=== PATIENT | male | born 1935 | race Caucasian/White ===

== ENCOUNTER 2022-11-21 18:56 | Inpatient (IN) ==
--- OUTSIDE RECORDS SUMMARY | 2022-11-21 19:19 | External Medical Summary | Continuity of Care Document ---
Author Name Unknown Organization [facility] Address [address] [place] [address] Care Team Providers Care High Risk Ob Name Role Phone Jason Kim Primary Care Physician [phone] Encounter [facility] Date(s): 08/23/22 - 08/24/22 [facility] [address] [place] [address]- [place] Discharge Disposition: Home Attending Physician: DO Micah Ceja Admitting Physician: DO Micah Ceja Allergies, Adverse Reactions, Alerts No Known Medication Allergies Assessment and Plan Future Scheduled Tests Radiology* US Echo 2D Complete EO 03/27/22 Functional Status 08/24/22 History of Fall in Last 3 Months [place] 08/23/22 Family Member Travel History No recent t ravel Recent Travel History No recent travel Other exposure to Infectious Disease Non e Medications aspirin 81 mg oral delayed release tablet 1 tab(s) ( 81 mg ), PO, Daily Start Date: 03/19/22 Status: Ordered carbidopa-levodopa 25 mg-100 mg oral tablet 1 tab(s), PO, As Directed, Instructions: 2 tabs QAM, 2 tabs QPM and 3 tabs in afternoon Start Date: 03/19/22 Status: Ordered carvedilol 3.125 mg oral tablet 1 tab(s) ( 3.125 mg ), PO, HS Start Date: 03/19/22 Status: Ordered citalopram 20 mg oral tablet 1 tab(s) ( 20 mg ), PO, Daily Start Date: 03/19/22 Status: Ordered furosemide ( 5 mg ), PO, BID, 0 Refill(s) Start Date: 08/23/22 Status: Ordered hctz-triamterene 25-37.5mg 1 tab(s), PO, Daily Start Date: 03/19/22 Status: Ordered levothyroxine 75 mcg (0.075 mg) oral tablet 1 tab(s), PO, Daily Start Date: 03/19/22 Status: Ordered potassium chloride ( 10 mEq ), PO, BID, 0 Refill(s) Start Date: 08/23/22 Status: Ordered pramipexole 0.25 mg oral tablet 1 tab(s) ( 0.25 mg ), PO, BID Start Date: 03/19/22 Status: Ordered Mental Status 08/24/22 Level of Consciousness Alert Problem List Condition Confirmation Course Effective Dates Status Health St atus Informant HTN (hypertension) Confirmed Active Hypothyroid Confirmed Active Parkinson disease Confirmed Active Prostate cancer, primary, 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 Confirmed Active Results Laboratory List Name Date Automated Differential 08/24/22 Basic Metabolic Panel2 (BMP2) 08/24/22 CBC w/ Auto Diff 08/24/22 Most recent to oldest [Reference Range]: 1 Creatinine Level [0.55-1.30 mg/dL] 1.19 mg/dL (08/24/22 7:25 AM) AGAP [9-18] 10 (08/24/22 7:25 AM) Basophil Auto [0.00-0.20 K/mcL] 0.01 K/m cL (08/24/22 7:25 AM) BUN [7-18 mg/dL] 39 mg/dL *HI* (08/24/22 7:25 AM) Chloride Level [98-107 mmol/L] 102 mmol/ L (08/24/22 7:25 AM) CO2 [21-32 mmol/L] 28 mmol/L (08/24/22 7:25 AM) Eos Auto [0.00-0.45 K/mcL] 0.06 K/mcL (08/24/22 7:25 AM) Glucose Level [74-106 mg/dL] 101 mg/dL (08/24/22 7:25 AM) Hct [41.0-50.0 %] 35.7 % *LOW* (08/24/22 7:25 AM) Hgb [13.5-18.0 g/dL] 12.1 g/dL *LOW* (08/24/22 7:25 AM) Lymph Auto [1.00-4.80 K/mcL] 0.45 K/mcL *LOW* (08/24/22 7:25 AM) MCH [26.0-34.0 pg] 31.8 pg (08/24/22 7:25 AM) MCHC [31.0-37.0 g/dL] 33.9 g/dL (08/24/22 7:25 AM) MCV [80.0-100.0 fL] 93.7 fL (08/24/22 7:25 AM) [place] Auto [0.00-0.80 K/mcL] 0.56 K/mcL (08/24/22 7:25 AM) MPV [8.0-12.0 fL] 9.4 fL (08/24/22 7:25 AM) Neutro Auto [1.80-7.70 K/mcL] 3.84 K/mcL (08/24/22:25 AM) Platelet [150-400] 182 (08/24/22:25 AM) Potassium Level [3.5-5.1 mmol/L] 4.2 mmo l/L (08/24/22:25 AM) RBC [4.00-5.30 M/uL] 3.81 M/uL *LOW* (08/24/22 7:25 AM) RDW [10.0-15.0 %] 13.9 % (08/24/22 7:25 AM) Sodium Level [136-145 mmol/L] 136 mmol/L (08/24/22 7:25 AM) WBC [4.00-10.00 K/mcL] 5.10 K/mcL (08/24/22:25 AM) Calcium Level [8.5-10.1 mg/dL] 9.5 mg/dL (08/24/22 7:25 AM) Auto Eos % [0.0-6.0 %] 1.2 % (08/24/22 7:25 AM) Auto Lymph % [20.0-45.0 %] 8.8 % *LOW* (08/24/22:25 AM) Auto Neut % [36.0-70.0 %] 75.3 % *HI* (08/24/22 7:25 AM) Auto Baso % [0.0-2.0 %] 0.2 % (08/24/22 7:25 AM) Auto [place] % [1.0-10.0 %] 11.0 % *HI* (08/24/22 7:25 AM) BUN/Creat Ratio [7-18] 33 *HI* (08/24/22 7:25 AM) eGFR AA [>=60] 74 (08/24/22 7:25 AM) eGFR Non AA [>=60] 61 (08/24/22 7:25 AM) Radiology Reports * Exam Date Time Procedure Performing Provider Status 08/24/22 8:[address] Head or Brain w/o Contrast Rodney Isbell; Auth (Verified) Notes: (CT Head or Brain w/o Contrast) Reason For Exam: Possible brain bleed. (CT Head or Brain w/o Contrast) Radiation Dose Estimate: CTDI DLP(mGy-cm) Body Part Effective Dose(mSv) -- 1014.0000 -- 0.0000 Total Effective Dose: 0.229792 mSv CT Head or Brain w/o Contrast [facility] DATE OF EXAM: 08/24/2022 8:04 AM HISTORY: Possible brain bleed.. PROVIDER: Micah Ceja COMPARISON: Unenhanced CT brain performed yesterday.. TECHNIQUE: Axial CT brain no contrast. Reformatted included. FINDINGS: Stable 3 mm hyperdense focus right caudate nucleus. No new acute intracranial pathology. Stable age-related parenchymal atrophy with diffuse periventricular white matter hypodensities. IMPRESSION: Stable suspect right caudate nucleus hemorrhage 3 mm. Unchanged chronic small vessel ischemic angiopathy with age-related parenchymal atrophy. No new acute intracranial pathology. THIS IS AN ELECTRONICALLY SIGNED REPORT IN [id number] BY Terrell Moore M.D. on 08/24/2022 8:25 AM sgprovider Final Signed (Electronic Signature): MD TERRELL MOORE 08/24/22 8:25 am Technologist: MARQUITA Vital Signs Most recent to oldest [Reference Range]: 1 2 3 Weight 72.0 kg (08/23/22 10:37 PM) Weight Measured (lbs) 158.733 lb (08/23/22 10:37 PM) Scale Type Bed (08/23/22 10:37 PM) Temperature Temporal Artery [36.3-37.8 DegC] 36.9 DegC (08/24/22 1:00 PM) 35.6 DegC *LOW* (08/24/22 11:25 AM) 36.2 DegC *LOW* (08/24/22 7:30 AM) Temperature Temporal Artery (DegF) [97.9-100.6 DegF] 98.42 DegF (08/24/22 1:00 PM) 96.08 DegF *LOW* (08/24/22 11:25 AM) 97.16 DegF *LOW* (08/24/22 7:30 AM) Peripheral Pulse Rate [60-100 bpm] 61 bpm (08/24/22 4:08 AM) 63 bpm (08/24/22 1:19 AM) 94 bpm (08/23/22 10:37 PM) Heart Rate Monitored [60-100 bpm] 63 bpm (08/24/22 1:00 PM) 68 bpm (08/24/22 11:25 AM) 67 bpm (08/24/22 11:00 AM) Respiratory Rate [14-20 br/min] 16 br/min (08/24/22 1:00 PM) 16 br/min (08/24/22: AM) 16 br/min (08/24/22 7:30 AM) Blood Pressure [90-140/60-90 mmHg] 112/56mmHg (08/24/22 1:00 PM) 128/63mmHg (08/24/22 11: AM) 109/52mmHg (08/24/22 7:30 AM) Mean Arterial Pressure, Cuff [65-100 mmHg] 75 mmHg (08/24/22 1:00 PM) 85 mmHg (08/24/22: AM) 71 mmHg (08/24/22 7:30 AM) BP Site Right arm (08/24/22 1:00 PM) Right arm (08/24/22 11:25 AM) Right arm (08/24/22 7:30 AM) SpO2 [92-100 %] 90 % *LOW* (08/24/22 1:00 PM) 93 % (08/24/22 11:25 AM) 91 % *LOW* (08/24/22 11:00 AM) Oxygen Flow Rate 2 L/min (08/24/22 7:30 AM) 2 L/min (08/24/22 4:08 AM) 2 L/min (08/24/22 1:19 AM) Oxygen Therapy Room air (08/24/22 1:00 PM) Room air (08/24/22 11:25 AM) Room air (08/24/22 11:00 AM) SpO2 Location Right ear lobe (08/24/22 1:19 AM) Right ear lobe (08/23/22 10:49 PM) Right ear lobe (08/23/22 10:41 PM) BP Method Automatic (08/24/22 1:00 PM) Automatic (08/24/22 11:25 AM) Automatic (08/24/22 7:30 AM) Social History Social History Type Response Tobacco Never tobacco user T obacco Use:. Sex Hospital Discharge Instructions Patient Education 08/24/2022 13:35:09 Fall Prevention in the Home, Adult Fall Prevention in the Home, Adult Falls can cause injuries and can affect people from all age groups. There are many simple things that you can do to make your home safe and to help prevent falls. Ask for help when making these changes, if needed. What actions can I take to prevent falls? General instructions Use good lighting in all rooms. Replace any light bulbs that burn out. Turn on lights if it is dark. Use night-lights. Place frequently used items in jqfb-vz-lsxcw places. Lower the shelves around your home if necessary. Set up furniture so that there are clear paths around it. Avoid moving your furniture around. Remove throw rugs and other tripping hazards from the floor. Avoid walking on wet floors. Fix any uneven floor surfaces. Add color or contrast paint or tape to grab bars and handrails in your home. Place contrasting color strips on the first and last steps of stairways. When you use a stepladder, make sure that it is completely opened and that the sides are firmlylocked. Have someone hold the ladder while you are using it. Do not climb a closed stepladder. Be aware of any and all pets. What can I do in the bathroom? Keep the floor dry. Immediately clean up any water that spills onto the floor. Remove soap buildup in the tub or shower on a regular basis. Use non-skid mats or decals on the floor of the tub or shower. Attach bath mats securely with double-sided, non-slip rug tape. If you need to sit down while you are in the shower, use a plastic, non-slip stool. Install grab bars by the toilet and in the tub and shower. Do not use towel bars as grab bars. What can I do in the bedroom? Make sure that a bedside light is easy to reach. Do not use oversized bedding that drapes onto the floor. Have a firm chair that has side arms to use for getting dressed. What can I do in the kitchen? Clean up any spills right away. If you need to reach for something above you, use a sturdy step stool that has a grab bar. Keep electrical cables out of the way. Do not use floor bengali or wax that makes floors slippery. If you must use wax, make sure that it is non-skid floor wax. What can I do in the stairways? Do not leave any items on the stairs. Make sure that you have a light switch at the top of the stairs and the bottom of the stairs. Have them installed if you do not have them. Make sure that there are handrails on both sides of the stairs. Fix handrails that are broken or loose. Make sure that handrails are as long as the stairways. Install non-slip stair treads on all stairs in your home. Avoid having throw rugs at the top or bottom of stairways, or secure the rugs with carpet tape to prevent them from moving. Choose a carpet design that does not hide the edge of steps on the stairway. Check any carpeting to make sure that it is firmly attached to the stairs. Fix any carpet that is loose or worn. What can I do on the outside of my home? Use bright outdoor lighting. Regularly repair the edges of walkways and driveways and fix any cracks. Remove high doorway thresholds. Trim any shrubbery on the main path into your home. Regularly check that handrails are securely fastened and in good repair. Both sides of any steps should have handrails. Install guardrails along the edges of any raised decks or porches. Clear walkways of debris and clutter, including tools and rocks. Have leaves, snow, and ice cleared regularly. Use sand or salt on walkways during winter months. In the garage, clean up any spills right away, including grease or oil spills. What other actions can I take? Wear closed-toe shoes that fit well and support your feet. Wear shoes that have rubber soles orlow heels. Use mobility aids as needed, such as canes, walkers, scooters, and crutches. Review your medicines with your health care provider. Some medicines can cause dizziness or changes in blood pressure, which increase your risk of falling. Talk with your health care provider about other ways that you can decrease your risk of falls. Thismay include working with a physical therapist or field trainer to improve your strength, balance, and endurance. Where to find more information Centers for Disease Control and Prevention[place]: https://www.cdc.gov National [place] on Aging: https://vh0orcx.clovis.nih.gov Contact a health care provider if: You are afraid of falling at home. You feel weak, drowsy, or dizzy at home. You fall at home. Summary There are many simple things that you can do to make your home safe and to help prevent falls. Ways to make your home safe include removing tripping hazards and installing grab bars in the bathroom. Ask for help when making these changes in your home. This information is not intended to replace advice given to you by your health care provider. Make sure you discuss any questions you have with your health care provider. Document Revised: 10/01/2018 Document Reviewed: 06/03/2018 [employer] Patient Education 2020 Friday. 08/24/2022 13:35:09 Weakness Weakness Weakness is a lack of strength. You may feel weak all over your body (generalized), or you may feelweak in one specific part of your body (focal). Common causes of weakness include: Infection and immune system disorders. Physical exhaustion. Internal bleeding or other blood loss that results in a lack of red blood cells (anemia). Dehydration. An imbalance in mineral (electrolyte) levels, such as potassium. Heart disease, circulation problems, or stroke. Other causes include: Some medicines or cancer treatment. Stress, anxiety, or depression. Nervous system disorders. Thyroid disorders. Loss of muscle strength because of age or inactivity. Poor sleep quality or sleep disorders. The cause of your weakness may not be known. Some causes of weakness can be serious, so it is important to see your health care provider. Follow these instructions at home: Activity Rest as needed. Try to get enough sleep. Most adults need 78 hours of quality sleep each night. Talk to yourhealth care provider about how much sleep you need each night. Do exercises, such as arm curls and leg raises, for 30 minutes at least 2 days a week or as told by your health care provider. This helps build muscle strength. Consider working with a physical therapist or field trainer who can develop an exercise plan to help you gain muscle strength. General instructions Take hvni-ndq-qqycwib and prescription medicines only as told by your health care provider. Eat a healthy, well-balanced diet. This includes: Proteins to build muscles, such as lean meats and fish. Fresh fruits and vegetables. Carbohydrates to boost energy, such as whole grains. Drink enough fluid to keep your urine pale yellow. Keep all follow-up visits as told by your health care provider. This is important. Contact a health care provider if your weakness: Does not improve or gets worse. Affects your ability to think clearly. Affects your ability to do your normal daily activities. Get help right away if you: Develop sudden weakness, especially on one side of your face or body. Have chest pain. Have trouble breathing or shortness of breath. Have problems with your vision. Have trouble talking or swallowing. Have trouble standing or walking. Are light-headed or lose consciousness. Summary Weakness is a lack of strength. You may feel weak all over your body or just in one specific part of your body. Weakness can be caused by a variety of things. In some cases, the cause may be unknown. Rest as needed, and try to get enough sleep. Most adults need 78 hours of quality sleep eachnight. Eat a healthy, well-balanced diet. This information is not intended to replace advice given to you by your health care provider. Make sure you discuss any questions you have with your health care provider. Document Revised: 05/25/2019 Document Reviewed: 05/25/2019 [employer] Patient Education 2021 Friday. Follow Up Care 08/23/2022 22:04:25 With:Jason Kim Address: [address] [place] [address]- [facility] (1) When: Unknown Comments:Call for follow up appointment with your primary care provider in 1-2 weeksRefer to handoutsDrink fluidsReturn if symptoms worsenCall with any questions or concerns Goals Len will dc to [facility]. His son Sheng will transport. Start Date:03/26/22 End Date:03/26/22 Status:Met Progression:Not Met CT Head WO contrast * MD TERRELL MOORE: VERIFY, VERIFY MD TERRELL MOORE: VERIFY DomainUser, Generated: PERFORM Event Display: Radiology Report Authored Date: [id number] [facility] DATE OF EXAM: 08/24/2022 8:04 AM HISTORY: Possible brain bleed.. PROVIDER: Micah Ceja COMPARISON: Unenhanced CT brain performed yesterday.. TECHNIQUE: Axial CT brain no contrast. Reformatted included. FINDINGS: Stable 3 mm hyperdense focus right caudate nucleus. No new acute intracranial pathology. Stable age-related parenchymal atrophy with diffuse periventricular white matter hypodensities. IMPRESSION: Stable suspect right caudate nucleus hemorrhage 3 mm. Unchanged chronic small vessel ischemic angiopathy with age-related parenchymal atrophy. No new acute intracranial pathology. THIS IS AN ELECTRONICALLY SIGNED REPORT IN [id number] BY Terrell Moore M.D. on 08/24/2022 8:25 AM sgprovider Final Signed (Electronic Signature): MD TERRELL MOORE 08/24/22 8:25 am Technologist: MARQUITA Patient Care team information Personnel Name: Jason Kim Address: Address: [address] [place] [address]- [place]
--- OUTSIDE RECORDS SUMMARY | 2022-11-21 19:19 | External Medical Summary | Continuity of Care Document ---
Author Name Unknown Organization [facility] Address [address] [facility] [place] [address] Care Team Providers Care Solar Sales Specialist Name Role Phone Terrell Arellano Primary Care Physician Carmela Hester Unavailable Unavailable Willa Ashton Unavailable Unavailabl e Encounter [facility] Date(s): 09/30/22 - 09/30/22 [facility] [address] [facility] [place] [address]- [place] Discharge Disposition: Home Attending Physician: MD Terrell Arellano Allergies, Adverse Reactions, Alerts No Known Medication Allergies Assessment and Plan Future Appointments Future Scheduled Tests Radiology* US Echo 2D Complete EO 03/27/22 Medications !-Augmentin 875 mg-125 mg oral tablet 1 tab(s) amoxicillin (as trihydrate), PO, q12hr, # 8 tab(s), 0 Refill(s), Pharmacy: [facility]1 tab(s) PO q12hr,x4 day(s), 185, cm, 09/05/22 18:23:00 PDT, Height/Length Dosing, 72, kg, 221:30:00 PDT, Weight Dosing Start Date: 09/08/22 Stop Date: 09/12/22 Status: Ordered aspirin 81 mg oral delayed release tablet 1 tab(s) ( 81 mg ), DR Tablet, PO, Daily, # 30 tab(s), 0 Refill(s), Pharmacy: [facility] 1 tab(s) PO Daily, 185, cm, 09/05/22 18:23:00 PDT, Height/Length Dosing, 72, kg, 08/24/22 1:30:00 PDT, Weight Dosing Start Date: 09/08/22 Status: Ordered carbidopa-levodopa 25 mg-100 mg oral tablet 1 tab(s), PO, As Directed, Instructions: 2 tab PO before breakfast, 3 tab PO before lunch, 2 tab PObefore dinner. Take 30 min prior to meals, # 210 tab(s), 11 Refill(s), Pharmacy: [facility] 1 tab(s) PO As Directed,Instr:2 tab PO before breakfas... Start Date: 09/08/22 Status: Ordered citalopram 20 mg oral tablet 2 tab(s) ( 40 mg ), Tab, PO, Daily, # 60 tab(s), 11 Refill(s), Pharmacy: [facility] 2 tab(s) PO Daily, 185, cm, 09/05/22 18:23:00 PDT, Height/Length Dosing, 72, kg, 08/24/22 1:30:00 PDT, Weight Dosing Start Date: 09/09/22 Status: Ordered docusate-senna 50 mg-8.6 mg oral tablet 1 tab(s), PO, Daily, Instructions: [facility], # 30 tab(s), 11 Refill(s), Pharmacy: [facility] 1 tab(s) PO Daily,Instr:[facility], 185, cm, 09/05/22 18:23:00 PDT, Height/Length Dosing, 72, kg, 08/24/22 1:30:00 PDT, Weight Dosing Start Date: 09/08/22 Status: Ordered levothyroxine 75 mcg (0.075 mg) oral tablet 1 tab(s) ( 75 mcg ), PO, Daily, # 30 tab(s), 11 Refill(s), Pharmacy: [facility] 1 tab(s) PO Daily, 185, cm, 09/05/22 18:23:00 PDT, Height/Length Dosing, 72, kg, 08/24/22 1:30:00 PDT, Weight Dosing Start Date: 09/08/22 Status: Ordered moxifloxacin 400 mg oral tablet 1 tab(s) ( 400 mg ), PO, Daily, # 10 tab(s), 0 Refill(s), Pharmacy: [facility] 1 tab(s) PO Daily,x10 day(s), 185, cm, 09/05/22 18:23:00 PDT, Height/Length Dosing, 72, kg, 08/24/22 1:30:00 PDT, Weight Dosing Start Date: 09/29/22 Stop Date: 10/09/22 Status: Ordered potassium chloride 10 mEq oral capsule, extended release ( 20 mEq ), ER Capsule, PO, Daily, # 30 tab(s), 11 Refill(s), Pharmacy: [facility] 20 mEq PO Daily, 185, cm, 09/05/22 18:23:00 PDT, Height/Length Dosing, 72, kg, 08/24/22 1:30:00 PDT, Weight Dosing Start Date: 09/08/22 Status: Ordered pramipexole 0.25 mg oral tablet 1 tab(s) ( 0.25 mg ), Tab, PO, BID, # 60 tab(s), 11 Refill(s), Pharmacy: [facility] 1 tab(s) PO BID, 185, cm, 09/05/22 18:23:00 PDT, Height/Length Dosing, 72, kg, 08/24/22 1:30:00 PDT, Weight Dosing Start Date: 09/08/22 Status: Ordered SEROquel 50 mg oral tablet 1 tab(s) ( 50 mg ), PO, qPM, # 90 tab(s), 4 Refill(s), Pharmacy: [facility] 1 tab(s) PO qPM, 185, cm, 09/05/22 18:23:00 PDT, Height/Length Dosing, 72, kg, 08/24/22 1:30:00 PDT, Weight Dosing Start Date: 09/12/22 Status: Ordered Tessalon Perles 0 Refill(s) Start Date: 09/29/22 Status: Ordered traZODone 50 mg oral tablet 1 tab(s) ( 50 mg ), PO, Once a day (at bedtime), # 30 tab(s), 2 Refill(s), Pharmacy: [facility] 1 tab(s) PO Once a day (at bedtime), 185, cm, 09/05/22 18:23:00 PDT, Height/Length Dosing, 72, kg,08/24/22 1:30:00 PDT, Weight Dosing Start Date: 09/17/22 Status: Ordered Problem List Condition Confirmation Course Effective Dates Status Health St atus Informant HTN (hypertension) Confirmed Active Hypothyroid Confirmed Active Parkinson disease Confirmed Active Prostate cancer, primary, 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 Confirmed Active Chest congestion Confirmed Active Social History Social History Type Response Tobacco Never tobacco user T obacco Use:. Sex Goals Len will dc to [facility]. His son Sheng will transport. Start Date:03/26/22 End Date:03/26/22 Status:Met Progression:Not Met Patient Care team information Personnel Name: MD Terrell Arellano Address: Address: [address] [place] [address], [place] [address]- [place] Name: Carmela Hester Name: Willa Ashton
--- OUTSIDE RECORDS SUMMARY | 2022-11-21 19:19 | External Medical Summary | Continuity of Care Document ---
Author Name Unknown Organization [facility] Address [address] [place] [address] Care Team Providers Care Order Administrator Name Role Phone Terrell Arellano Primary Care Physician Carmela Hester Unavailable Unavailable Willa Ashton Unavailable Unavailabl e Encounter [facility] Date(s): 10/28/22 - 10/28/22 [facility] [address] [facility] [place] [address]- [place] Discharge Disposition: Home Attending Physician: MD [...] # 60 tab(s), 11 Refill(s), Pharmacy: [facility] 2 tab(s) PO Daily, 185, cm, 09/05/22 18:23:00 PDT, Height/Length Dosing, 72, kg, 08/24/22 1:30:00 PDT, Weight Dosing Start Date: 09/09/22 Status: Ordered docusate-senna 50 mg-8.6 mg oral tablet 1 tab(s), PO, Daily, Instructions: [facility], # 30 tab(s), 11 Refill(s), Pharmacy: [facility] 1 tab(s) PO Daily,Instr:[facility], 185, cm, 09/05/22 18:23:00 PDT, Height/Length Dosing, 72, kg, 08/24/22 1:30:00 PDT, Weight Dosing Start Date: 09/08/22 Status: Ordered Food and Beverage Thickener Food and Beverage Thickener, See Instructions, Instructions: Mix with all liquids as per directionson bottle in order to maintain a nectar consistency with all liquids Dispense: 1 large bottle, # 1 EA, 11 Refill(s), Pharmacy: [facility] Mix wit... Start Date: 10/01/22 Status: Ordered levothyroxine 75 mcg (0.075 mg) oral tablet 1 tab(s) ( 75 mcg ), PO, Daily, # 30 tab(s), 11 Refill(s), Pharmacy: [facility] 1 tab(s) PO Daily, 185, cm, [...] tab(s), 11 Refill(s), Pharmacy: [facility] 20 mEq PO Daily, 185, cm, 09/05/22 18:23:00 PDT, Height/Length Dosing, 72, kg, 08/24/22 1:30:00 PDT, Weight Dosing Start Date: 09/08/22 Status: Ordered pramipexole 0.25 mg oral tablet 1 tab(s) ( 0.25 mg ), Tab, PO, BID, # 60 tab(s), 11 Refill(s), Pharmacy: [facility] 1 tab(s) PO BID, 185, cm, 09/05/22 18:23:00 PDT, Height/Length Dosing, 72, kg, 08/24/22 1:30:00 PDT, Weight Dosing Start Date: 09/08/22 Status: Ordered SEROquel 50 mg oral tablet 1 tab(s) ( 50 mg ), PO, qPM, # 90 tab(s), 4 Refill(s), Pharmacy: [facility] 1 tab(s) PO qPM, 185, cm, 09/05/22 18:23:00 PDT, Height/Length Dosing, 72, kg, 08/24/22 1:30:00 PDT, Weight Dosing Start Date: 09/12/22 Status: Ordered Tessalon Perles 0 Refill(s) Start Date: 09/29/22 Status: Ordered traZODone 50 mg oral tablet 1 tab(s) ( 50 mg ), PO, Once a day (at bedtime), # 30 tab(s), 2 Refill(s), Pharmacy: [facility], 1 tab(s) PO Once a day (at [...] Use:. Sex Goals Len will dc to [facility]. His son Sheng will transport. Start Date:03/26/22 End Date:03/26/22 Status:Met Progression:Not Met Patient Care team information Personnel Name: MD Terrell Arellano Address: Address: [address] [place] [address]- [place] Name: Carmela Hester Name: Willa Ashton
--- OUTSIDE RECORDS SUMMARY | 2022-11-21 19:19 | External Medical Summary | Continuity of Care Document ---
Author Name Unknown Organization [facility] Address [address] [facility] [place] [address] Care Team Providers Care Marketing Education Teacher Name Role Phone JudyJason tripathi Primary Care Physician [phone] Encounter [facility] Date(s): 03/19/22 - 03/20/22 [facility] [address] [facility] [place] [address]- Discharge Disposition: Admitted as Inpatient Attending Physician: Sariah Miles Admitting Physician: Sariah Miles Allergies, Adverse Reactions, Alerts No Known Medication Allergies Functional Status 03/20/22 Progress Note-Physician Patient: ROMINA YAO Age: 86 years Sex: MALE : 1935 Associated Diagnoses: None Author: PHOEBE BARTOLO Subjective Chief complaint 03/19/2022 11:45 PDT Chief Complaint . Pt needs assistance to the toilet. 2 person assist due to LE weakness. No new complaints overnight. Health Status Allergies: Allergic Reactions (Selected) No Known Medication Allergies Problem list (past medical history): All Problems Prostate cancer, primary, 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 / SNOMED CT 116160396 / Confirmed Parkinson disease / SNOMED CT 44678811 / Confirmed Hypothyroid / SNOMED CT 15389524 / Confirmed HTN (hypertension) / SNOMED CT 8091049876 / Confirmed Objective VS/Measurements Vital Signs 03/20/2022 7:51 PDT Systolic Blood Pressure 94 mmHg Diastolic Blood Pressure 52 mmHg LOW BP Site Right arm SpO2 92 % 03/20/2022 7:25 PDT Temperature Temporal 36.2 DegC LOW Temperature Temporal (DegF) 97.16 DegF LOW Peripheral Pulse Rate 70 bpm Respiratory Rate 12 br/min LOW Systolic Blood Pressure 88 mmHg LOW Diastolic Blood Pressure 46 mmHg LOW BP Site Right arm Patient Position BP Supine Oxygen Therapy Room air General: Alert and oriented, Moderate distress. Eye: Pupils are equal, round and reactive to light, Extraocular movements are intact. HENT: Normocephalic, Oral mucosa is moist. Neck: Supple, Non-tender. Respiratory: Lungs are clear to auscultation, Respirations are non-labored, Breath sounds are equal, Symmetrical chest wall expansion. Cardiovascular: Normal rate, Regular rhythm, Good pulses equal in all extremities. Gastrointestinal: Soft, Normal bowel sounds. Musculoskeletal: 4/5 muscle strength lower extremities. . Integumentary: Warm, Dry, [place], Intact. Results Review Results review Lab results 03/20/2022 6:45 PDT WBC 6.48 K/mcL RBC 3.52 M/uL LOW Hgb 11.6 g/dL LOW Hct 33.4 % LOW MCV 94.9 fL MCH 33.0 pg MCHC 34.7 g/dL RDW 13.7 % Platelet 139 NA MPV 9.2 fL Neutro Auto 4.85 K/mcL Lymph Auto 0.56 K/mcL LOW [place] Auto 0.90 K/mcL HI Eos Auto 0.04 K/mcL Basophil Auto 0.01 K/mcL Auto Neut % 74.8 % HI Auto Lymph % 8.6 % LOW Auto [place] % 13.9 % HI Auto Eos % 0.6 % Auto Baso % 0.2 % Sodium Level 134 mmol/L LOW Potassium Level 4.2 mmol/L Chloride Level 103 mmol/L CO2 24 mmol/L AGAP 11 Glucose Level 122 mg/dL HI BUN 38 mg/dL HI Creatinine Level 1.43 mg/dL HI BUN/Creat Ratio 27 HI eGFR AA 60 eGFR Non AA 50 LOW Calcium Level 8.8 mg/dL Bili Total 1.2 mg/dL HI Alk Phos 98 U/L AST/SGOT 24 U/L ALT/SGPT 10 U/L LOW Protein Total 5.3 g/dL LOW Albumin Level 3.0 g/dL LOW A/G Ratio 1.3 NT Pro-BNP 5,190 pg/mL HI Troponin I High Sensitivity 40.1 pg/mL Impression and Plan LE weakness: Physical therapy consultation. Renal impairment: Worsening renal function this morning. Encouraging oral hydration. Avoiding maintenance IV hydration due to fluid overload status. CHF: No prior Echos in records. Negative Trop I overnight. I will obtain echocardiogram. IV lasix 20mg daily. Repeat labs in am. Hypotension: Encourage oral hydration, IV fluid bolus worsen CHF. My need to add dopamine to improve her pressures. Dispo: transition to inpatient status. 03/20/22 History of Fall in Last 3 Months Jacklyn valencia 03/19/22 Recent Travel History No recent travel Other exposure to Infectious Disease Non e Medications aspirin 81 mg oral delayed release tablet 1 tab(s) ( 81 mg ), PO, Daily Start Date: 03/19/22 Status: Ordered carbidopa-levodopa 25 mg-100 mg oral tablet 2 tab(s), PO, TID Start Date: 03/19/22 Status: Ordered carvedilol 3.125 mg oral tablet 1 tab(s) ( 3.125 mg ), PO, Daily Start Date: 03/19/22 Status: Ordered citalopram 20 mg oral tablet 1 tab(s) ( 20 mg ), PO, Daily Start Date: 03/19/22 Status: Ordered hctz-triamterene 25-37.5mg 1 tab(s), PO, Daily Start Date: 03/19/22 Status: Ordered levothyroxine 75 mcg (0.075 mg) oral tablet 1 tab(s), PO, Daily Start Date: 03/19/22 Status: Ordered pramipexole 0.25 mg oral tablet 1 tab(s) ( 0.25 mg ), PO, BID Start Date: 03/19/22 Status: Ordered Mental Status 03/20/22 Level of Consciousness Alert Problem List Condition Effective Dates Status Health Status Inform ant HTN (hypertension)(Confirmed) Active Hypothyroid(Confirmed) Active Parkinson disease(Confirmed) Active Prostate cancer, primary, wi th metastasis from prostate to other site(Confirmed) Active Results Laboratory List Name Date Automated Differential 03/20/22 CBC w/ Auto Diff 03/20/22 Comprehensive Metabolic Panel2 (CMP2) NT Pro-BNP (Pro-BNP) 03/20/22 Troponin I High Sensitivity 03/20/22 Most recent to oldest [Reference Range]: 1 Creatinine Level [0.55-1.30 mg/dL] 1.43 mg/dL *HI* (03/20/22 6:45 AM) AGAP [9-18] 11 (03/20/22 6:45 AM) Albumin Level [3.4-5.0 g/dL] 3.0 g/dL *LOW* (03/20/22 6:45 AM) Alk Phos [46-116 U/L] 98 U/L (03/20/22 6:45 AM) Basophil Auto [0.00-0.20 K/mcL] 0.01 K/m cL (03/20/22 6:45 AM) Bili Total [0.2-1.0 mg/dL] 1.2 mg/dL *HI* (03/20/22 6:45 AM) BUN [7-18 mg/dL] 38 mg/dL *HI* (03/20/22 6:45 AM) Chloride Level [98-107 mmol/L] 103 mmol/ L (03/20/22 6:45 AM) CO2 [21-32 mmol/L] 24 mmol/L (03/20/22 6:45 AM) Eos Auto [0.00-0.45 K/mcL] 0.04 K/mcL (03/20/22 6:45 AM) Glucose Level [74-106 mg/dL] 122 mg/dL *HI* (03/20/22 6:45 AM) Hct [41.0-50.0 %] 33.4 % *LOW* (03/20/22 6:45 AM) Hgb [13.5-18.0 g/dL] 11.6 g/dL *LOW* (03/20/22 6:45 AM) Lymph Auto [1.00-4.80 K/mcL] 0.56 K/mcL *LOW* (03/20/22 6:45 AM) MCH [26.0-34.0 pg] 33.0 pg (03/20/22 6:45 AM) MCHC [31.0-37.0 g/dL] 34.7 g/dL (03/20/22 6:45 AM) MCV [80.0-100.0 fL] 94.9 fL (03/20/22 6:45 AM) [place] Auto [0.00-0.80 K/mcL] 0.90 K/mcL *HI* (03/20/22 6:45 AM) MPV [8.0-12.0 fL] 9.2 fL (03/20/22 6:45 AM) Neutro Auto [1.80-7.70 K/mcL] 4.85 K/mcL (03/20/22 6:45 AM) Platelet 139 *NA* (03/20/22 6:45 AM) Potassium Level [3.5-5.1 mmol/L] 4.2 mmo l/L (03/20/22 6:45 AM) RBC [4.00-5.30 M/uL] 3.52 M/uL *LOW* (03/20/22 6:45 AM) RDW [10.0-15.0 %] 13.7 % (03/20/22 6:45 AM) Sodium Level [136-145 mmol/L] 134 mmol/L *LOW* (03/20/22 6:45 AM) Protein Total [6.4-8.2 g/dL] 5.3 g/dL *LOW* (03/20/22 6:45 AM) WBC [4.00-10.00 K/mcL] 6.48 K/mcL (03/20/22 6:45 AM) Calcium Level [8.5-10.1 mg/dL] 8.8 mg/dL (03/20/22 6:45 AM) ALT/SGPT [14-63 U/L] 10 U/L *LOW* (03/20/22 6:45 AM) AST/SGOT [15-37 U/L] 24 U/L (03/20/22 6:45 AM) Auto Eos % [0.0-6.0 %] 0.6 % (03/20/22 6:45 AM) Auto Lymph % [20.0-45.0 %] 8.6 % *LOW* (03/20/22 6:45 AM) Auto Neut % [36.0-70.0 %] 74.8 % *HI* (03/20/22 6:45 AM) Auto Baso % [0.0-2.0 %] 0.2 % (03/20/22 6:45 AM) Auto [place] % [1.0-10.0 %] 13.9 % *HI* (03/20/22 6:45 AM) BUN/Creat Ratio [7-18] 27 *HI* (03/20/22 6:45 AM) A/G Ratio [1.0-2.2] 1.3 (03/20/22 6:45 AM) Troponin I High Sensitivity [0.0-50.0 pg /mL] 40.1 pg/mL (03/20/22 6:45 AM) eGFR AA [>=60] 60 (03/20/22 6:45 AM) eGFR Non AA [>=60] 50 *LOW* (03/20/22 6:45 AM) NT Pro-BNP [0-450 pg/mL] 5190 pg/mL *HI* (03/20/22 6:45 AM) Vital Signs Most recent to oldest [Reference Range]: 1 2 3 Height 185.000 cm (03/19/22 6:18 PM) 185 cm (03/19/22 6:03 PM) Height/Length Measured (inches) 72.83 in (03/19/22 6:03 PM) Height/Length Dosing 185.000 cm (03/19/22 6:18 PM) Weight 82.000 kg (03/19/22 6:18 PM) 82.0 kg (03/19/22 6:03 PM) Weight Measured (lbs) 180.779 lb (03/19/22 6:03 PM) Weight Dosing 82.000 kg (03/19/22 6:18 PM) Scale Type Bed scale (03/19/22 6:18 PM) Body Mass Index 23.960 kg/m2 (03/19/22 6:18 PM) Temperature Temporal [36.3-37.8 DegC] 36.2 DegC *LOW* (03/20/22 7:25 AM) 36.3 DegC (03/20/22 5:12 AM) 36.5 DegC (03/20/22 12:39 AM) Temperature Temporal (DegF) [97.3-100 DegF] 97.16 DegF *LOW* (03/20/22 7:25 AM) 97.34 DegF (03/20/22 5:12 AM) 97.7 DegF (03/20/22 12:39 AM) Peripheral Pulse Rate [60-100 bpm] 70 bpm (03/20/22 7:25 AM) 77 bpm (03/20/22 5:12 AM) 87 bpm (03/20/22 12:39 AM) Respiratory Rate [14-20 br/min] 16 br/min (03/20/22 7:53 AM) 12 br/min *LOW* (03/20/22 7:25 AM) 24 br/min *HI* (03/20/22 5:12 AM) Blood Pressure [90-140/60-90 mmHg] 110/58mmHg (03/20/22 9:42 AM) 94/52mmHg (03/20/22 7:51 AM) 88/46mmHg *LOW* (03/20/22 7:25 AM) Mean Arterial Pressure, Cuff [65-100 mmHg] 73 mmHg (03/20/22 5:12 AM) 61 mmHg *LOW* (03/20/22 12:39 AM) 78 mmHg (03/19/22 7:51 PM) BP Site Right arm (03/20/22 7:51 AM) Right arm (03/20/22 7:25 AM) Right arm (03/20/22 5:12 AM) Patient Position BP Supine (03/20/22 7:25 AM) Supine (03/20/22 5:12 AM) Supine (03/20/22 1:24 AM) SpO2 [92-100 %] 92 % (03/20/22 7:51 AM) 94 % (03/20/22 5:12 AM) 92 % (03/20/22 12:39 AM) Oxygen Therapy Room air (03/20/22 7:53 AM) Room air (03/20/22 7:25 AM) Room air (03/20/22 5:12 AM) Vital Signs Comments Giving scheduled la six (03/20/22 9:42 AM) RN Noted (03/20/22 5:12 AM) RN Noted, rechecked, called Dr. Barnes (03/20/22 12:39 AM) Social History Social History Type Response Tobacco Never tobacco user T obacco Use:. Sex Care Team Personnel Name: Jason Kim Address: [address] [place] [address]- [place]
--- OUTSIDE RECORDS SUMMARY | 2022-11-21 19:19 | External Medical Summary | Continuity of Care Document ---
Author Name Unknown Organization [facility] Address [address] [place] [facility] [place] [address] Care Team Providers Care Slip Caster Name Role Phone Judy, Jason Primary Care Physician [phone] Encounter [facility] Date(s): 08/23/22 - 08/23/22 [facility] [address] [place] [facility] [place] [address]- [place] Encounter Diagnosis Closed head injury with LOC(Discharge Diagnosis) - 08/23/22 Discharge Disposition: Admitted as Inpatient Attending Physician: DO Micah Ceja Allergies, Adverse Reactions, Alerts No Known Medication Allergies Assessment and Plan Extracted from: Title:Fall *ED Author:DO Micah Ceja Date: Impression and Plan Possible 3mm brain bleed Frequent falls Parkinson disease Pt will be admitted observation. Cardiac and continuous pulse ox monitoring. Neuro checks q2 hrs. SCD's for DVT prophylaxis. Pt is a confirmed DNR/DNI. Repeat labs in am. Physical therapy consultation. Fall Risk. Anticipate 24 hours hospitalization. Future Scheduled Tests Radiology* US Echo 2D Complete EO 03/27/22 Functional Status 08/23/22 ED Note - Physician Patient: LEN YAO Age: 87 years Sex: MALE : 1935 Associated Diagnoses: None Author: DO Micah Ceja Basic Information Fall, Left sided weakness. History of Present Illness 87 y/o male presents to the ER via ambulance for possible stroke like symptoms. He presents with his daughter. She reports that he has Parkinson's disease. He has been falling a lot more over the past couple of weeks. He has bruising and contusions on his head. Family feels that he has left sided weakness. Since arriving his symptoms have improved. Review of Systems Constitutional symptoms: Weakness, fatigue, decreased activity. Skin symptoms: Negative except as documented in HPI. Eye symptoms: Negative except as documented in HPI. ENMT symptoms: Negative except as documented in HPI. Respiratory symptoms: Negative except as documented in HPI. Cardiovascular symptoms: Negative except as documented in HPI. Gastrointestinal symptoms: Negative except as documented in HPI. Genitourinary symptoms: Negative except as documented in HPI. Musculoskeletal symptoms: Negative except as documented in HPI. Neurologic symptoms: Negative except as documented in HPI. Psychiatric symptoms: Negative except as documented in HPI. Endocrine symptoms: Negative except as documented in HPI. Hematologic/Lymphatic symptoms: Negative except as documented in HPI. Allergy/immunologic symptoms: Negative except as documented in HPI. Health Status Allergies: Allergic Reactions (Selected) No Known Medication Allergies. Past Medical/ Family/ Social History Medical history: No active or resolved past medical history items have been selected or recorded.. Surgical history: No active procedure history items have been selected or recorded.. Family history: No family history items have been selected or recorded.. Physical Examination Vital Signs Vital Signs 08/23/2022 19:24 PDT Peripheral Pulse Rate 64 bpm Respiratory Rate 22 br/min HI Systolic Blood Pressure 148 mmHg HI Diastolic Blood Pressure 66 mmHg SpO2 94 % Oxygen Flow Rate 2 L/min Oxygen Therapy Nasal cannula SpO2 Location Right ear lobe 08/23/2022 18:47 PDT Temperature Temporal Artery 36.8 DegC Temperature Temporal Artery (DegF) 98.24 DegF Peripheral Pulse Rate 78 bpm Respiratory Rate 20 br/min Systolic Blood Pressure 160 mmHg HI Diastolic Blood Pressure 74 mmHg SpO2 98 % . General: Alert, mild distress. [place] coma scale: Eye response: 4 /4, verbal response: 5 /5, motor response: 6 /6, Total score: NIH score: 2. Neurological: Alert and oriented to person, place, time, and situation, No focal neurological deficit observed, CN II-XII intact. Skin: Warm, dry, pink, intact, Multiple contussion posterior left head. . Head: Normocephalic. Neck: Supple, trachea midline. Eye: Pupils are equal, round and reactive to light, extraocular movements are intact, vision grossly normal. Ears, nose, mouth and throat: Tympanic membranes clear, oral mucosa moist, no pharyngeal erythema or exudate. Cardiovascular: No murmur, Normal peripheral perfusion. Respiratory: Lungs are clear to auscultation, respirations are non-labored, breath sounds are equal, Symmetrical chest wall expansion. Chest wall: No tenderness, No deformity. Musculoskeletal: Normal ROM, normal strength, no tenderness, no deformity. Gastrointestinal: Soft, Nontender, Non distended, Normal bowel sounds. Medical Decision Making Radiology results: Computed tomography, 3mm hyperdensity head of right caudate necleus. New finding.. Impression and Plan Possible 3mm brain bleed Frequent falls Parkinson disease Pt will be admitted observation. Cardiac and continuous pulse ox monitoring. Neuro checks q2 hrs. SCD's for DVT prophylaxis. Pt is a confirmed DNR/DNI. Repeat labs in am. Physical therapy consultation. Fall Risk. Anticipate 24 hours hospitalization. 08/23/22 Family Member Travel History No recent [...] PO, BID Start Date: 03/19/22 Status: Ordered Problem List Condition Confirmation Course Effective Dates Status Health St atus Informant HTN (hypertension) Confirmed Active Hypothyroid Confirmed Active Parkinson disease Confirmed Active Prostate cancer, primary, 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 Confirmed Active Results Laboratory List Name Date UA Routine 08/23/22 SARS-CoV-2 (COVID-19) PCR (GeneXpert) Automated Differential 08/23/22 CBC w/ Auto Diff 08/23/22 Comprehensive Metabolic Panel2 (CMP2) PT/INR 08/23/22 Troponin I High Sensitivity 08/23/22 Most recent to oldest [Reference Range]: 1 Creatinine Level [0.55-1.30 mg/dL] 1.36 mg/dL *HI* (08/23/22 8:00 PM) UA Bacteria [None] Rare (08/23/22 8:10 PM) UA Blood [Negative] Negative (08/23/22 8:10 PM) UA Color [Yellow] Yellow (08/23/22 8:10 PM) UA Glucose [Negative] Negative (08/23/22 8:10 PM) UA Ketones [Negative] Negative (08/23/22 8:10 PM) UA Nitrite [Negative] Negative (08/23/22 8:10 PM) UA Protein [Negative] Negative (08/23/22 8:10 PM) UA Urobilinogen [0.2-1.0] 1.0 (08/23/22 8:10 PM) UA Yeast [None] None (08/23/22 8:10 PM) AGAP [9-18] 13 (08/23/22 8:00 PM) INR [0.9-1.1] 1.1 (08/23/22 8:00 PM) UA pH [4.0-8.0] 6.0 (08/23/22 8:10 PM) Albumin Level [3.4-5.0 g/dL] 4.0 g/dL (08/23/22 8:00 PM) Alk Phos [46-116 U/L] 178 U/L *HI* (08/23/22 8:00 PM) Basophil Auto [0.00-0.20 K/mcL] 0.01 K/m cL (08/23/22 8:00 PM) Bili Total [0.2-1.0 mg/dL] 1.0 mg/dL (08/23/22 8:00 PM) BUN [7-18 mg/dL] 43 mg/dL *HI* (08/23/22 8:00 PM) Chloride Level [98-107 mmol/L] 101 mmol/ L (08/23/22 8:00 PM) CO2 [21-32 mmol/L] 29 mmol/L (08/23/22 8:00 PM) Eos Auto [0.00-0.45 K/mcL] 0.11 K/mcL (08/23/22 8:00 PM) Glucose Level [74-106 mg/dL] 113 mg/dL *HI* (08/23/22 8:00 PM) Hct [41.0-50.0 %] 40.9 % *LOW* (08/23/22 8:00 PM) Hgb [13.5-18.0 g/dL] 13.8 g/dL (08/23/22 8:00 PM) Lymph Auto [1.00-4.80 K/mcL] 0.58 K/mcL *LOW* (08/23/22 8:00 PM) MCH [26.0-34.0 pg] 31.9 pg (08/23/22 8:00 PM) MCHC [31.0-37.0 g/dL] 33.7 g/dL (08/23/22 8:00 PM) MCV [80.0-100.0 fL] 94.7 fL (08/23/22 8:00 PM) Nash Auto [0.00-0.80 K/mcL] 0.66 K/mcL (08/23/22 8:00 PM) MPV [8.0-12.0 fL] 9.9 fL (08/23/22 8:00 PM) Neutro Auto [1.80-7.70 K/mcL] 7.26 K/mcL (08/23/22 8:00 PM) Platelet [150-400] 221 (08/23/22 8:00 PM) Potassium Level [3.5-5.1 mmol/L] 4.8 mmo l/L (08/23/22 8:00 PM) PT [9.30-11.40 second(s)] 11.20 second(s ) (08/23/22 8:00 PM) RBC [4.00-5.30 M/uL] 4.32 M/uL (08/23/22 8:00 PM) RDW [10.0-15.0 %] 14.0 % (08/23/22 8:00 PM) Sodium Level [136-145 mmol/L] 138 mmol/L (08/23/22 8:00 PM) Protein Total [6.4-8.2 g/dL] 6.3 g/dL *LOW* (08/23/22 8:00 PM) WBC [4.00-10.00 K/mcL] 8.82 K/mcL (08/23/22 8:00 PM) Calcium Level [8.5-10.1 mg/dL] 9.9 mg/dL (08/23/22 8:00 PM) ALT/SGPT [14-63 U/L] 8 U/L *LOW* (08/23/22 8:00 PM) AST/SGOT [15-37 U/L] 16 U/L (08/23/22 8:00 PM) Auto Eos % [0.0-6.0 %] 1.2 % (08/23/22 8:00 PM) Auto Lymph % [20.0-45.0 %] 6.6 % *LOW* (08/23/22 8:00 PM) Auto Neut % [36.0-70.0 %] 82.3 % *HI* (08/23/22 8:00 PM) UA Clarity [Clear] Clear (08/23/22 8:10 PM) Auto Baso % [0.0-2.0 %] 0.1 % (08/23/22 8:00 PM) Auto [place] % [1.0-10.0 %] 7.5 % (08/23/22 8:00 PM) BUN/Creat Ratio [7-18] 32 *HI* (08/23/22 8:00 PM) A/G Ratio [1.0-2.2] 1.7 (08/23/22 8:00 PM) Troponin I High Sensitivity [0.0-50.0 pg /mL] 26.8 pg/mL (08/23/22 8:00 PM) eGFR AA [>=60] 63 (08/23/22 8:00 PM) eGFR Non AA [>=60] 52 *LOW* (08/23/22 8:00 PM) SARS-CoV-2 (COVID-19) PCR (GeneXpert) [N egative] Negative (08/23/22 8:05 PM) Employed in healthcare? No *NA* (08/23/22 8:05 PM) Symptomatic as defined by CDC? No *NA* (08/23/22 8:05 PM) Hospitalized due to COVID-19? No *NA* (08/23/22 8:05 PM) In ICU? No *NA* (08/23/22 8:05 PM) Group care resident? No *NA* (08/23/22 8:05 PM) status? Not *NA* (08/23/22 8:05 PM) Amorphous Sediments [None] Trace (08/23/22 8:10 PM) Urine Casts [None] None (08/23/22 8:10 PM) Urine Mucous [None] Few (08/23/22 8:10 PM) Urine Epithelials 2 *NA* (08/23/22 8:10 PM) Microscopic RBC [None] 0-1 (08/23/22 8:10 PM) Microscopic WBC [None] 0-1 (08/23/22 8:10 PM) Urine Crystals [None] None (08/23/22 8:10 PM) UA Leukocytes [Negative] Negative (08/23/22 8:10 PM) UA Specific [place] [1.005-1.035] 1.020 (08/23/22 8:10 PM) UA Bilirubin [Negative] Negative (08/23/22 8:10 PM) Vital Signs Most recent to oldest [Reference Range]: 1 2 3 Height/Length Dosing 185.000 cm (08/24/22 1:30 AM) Height/Length Estimated 185.000 cm (08/23/22 6:36 PM) Weight Dosing 72.000 kg (08/24/22 1:30 AM) Weight Estimated 72.000 kg (08/23/22 6:36 PM) Temperature Temporal Artery [36.3-37.8 DegC] 36.8 DegC (08/23/22 6:47 PM) Temperature Temporal Artery (DegF) [97.9-100.6 DegF] 98.24 DegF (08/23/22 6:47 PM) Peripheral Pulse Rate [60-100 bpm] 64 bpm (08/23/22 7:24 PM) 78 bpm (08/23/22 6:47 PM) Respiratory Rate [14-20 br/min] 22 br/min *HI* (08/23/22 7:24 PM) 20 br/min (08/23/22 6:47 PM) Blood Pressure [90-140/60-90 mmHg] 148/66mmHg *HI* (08/23/22 7:24 PM) 160/74mmHg *HI* (08/23/22 6:47 PM) SpO2 [92-100 %] 94 % (08/23/22 7:24 PM) 98 % (08/23/22 6:47 PM) Oxygen Flow Rate 2 L/min (08/23/22 7:24 PM) Oxygen Therapy Done Charted (08/23/22 10:48 PM) Done Charted (08/23/22 10:48 PM) Nasal cannula (08/23/22 7:24 PM) SpO2 Location Right ear lobe (08/23/22 7:24 PM) Social History Social History Type Response Tobacco Never tobacco user T obacco Use:. Sex Goals Len will dc to [facility]. His son Sheng will transport. Start Date:03/26/22 End Date:03/26/22 Status:Met Progression:Not Met Patient Care team information Personnel Name: Jason Kim Address: Address: [address] [place] [address]- [place]
--- OUTSIDE RECORDS SUMMARY | 2022-11-21 19:19 | External Medical Summary | Continuity of Care Document ---
Author Name Unknown Organization [facility] Address [address] [address] Care Team Providers Care Equipment Tester Name Role Phone Jason Kim Primary Care Physician [phone] Encounter [facility] Date(s): 03/20/22 - 03/23/22 [facility] [address] [place] [address]- Discharge Disposition: Swing Bed Attending Physician: BARTOLO SANDHU DO Admitting Physician: BARTOLO SANDHU DO Allergies, Adverse Reactions, Alerts No Known Medication Allergies Functional Status 03/23/22 History of Fall in Last 3 Months [place] Y es 03/22/22 Progress Note-Physician Patient: ROMINA YAO Age: 86 years Sex: MALE : 1935 Associated Diagnoses: None Author: Terrell Arellano MD Subjective Patient has done well over the last day medically Mentation completely cleared up Still struggling to move - he is working with PT, but has signficant debility with is movements, and ADLs are very dependent on others still. Health Status Allergies: Allergic Reactions (Selected) No Known Medication Allergies, Allergies (1) Active Severity Reaction No Known Medication Allergies None Documented Current medications: (Selected) Inpatient Medications Ordered Lasix: 40 mg = 4 mL, PO, Daily Lovenox: 40 mg = 0.4 mL, SubQ, qAM Synthroid: 75 mcg, PO, AC Breakfast Tylenol: 500 mg = 1 tab(s), PO, q6hr (int), PRN: pain aspirin: 81 mg = 1 tab(s), PO, Daily carbidopa-levodopa 25 mg-100 mg oral tablet: 2 tab(s), PO, BIDWM carbidopa-levodopa 25 mg-100 mg oral tablet: 3 tab(s), PO, q24hr (int) cefTRIAXone: 1 gm = 10 mL, 120 mL/hr, IV Push, qAM citalopram: 20 mg = 2 tab(s), PO, Daily pramipexole 0.25 mg oral tablet: 0.25 mg, PO, BID Documented Medications Documented aspirin 81 mg oral delayed release tablet: 81 mg = 1 tab(s), PO, Daily carbidopa-levodopa 25 mg-100 mg oral tablet: 2 tab(s), PO, TID carvedilol 3.125 mg oral tablet: 3.125 mg = 1 tab(s), PO, Daily citalopram 20 mg oral tablet: 20 mg = 1 tab(s), PO, Daily hctz-triamterene 25-37.5m tab(s), PO, Daily levothyroxine 75 mcg (0.075 mg) oral tablet: 1 tab(s), PO, Daily pramipexole 0.25 mg oral tablet: 0.25 mg = 1 tab(s), PO, BID Problem list (past medical history): All Problems HTN (hypertension) / SNOMED CT 7852244899 / Confirmed Hypothyroid / SNOMED CT 55898752 / Confirmed Parkinson disease / SNOMED CT 08193994 / Confirmed Prostate cancer, primary, 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 / SNOMED CT 587817468 / Confirmed Canceled: No Chronic Problems / Cerner NKP, Active Problems (4) HTN (hypertension) Hypothyroid Parkinson disease Prostate cancer, primary, 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 Objective VS/Measurements Vital Signs 03/22/2022 7:46 PDT Temperature Temporal 36.2 DegC LOW Temperature Temporal (DegF) 97.16 DegF LOW Peripheral Pulse Rate 67 bpm Respiratory Rate 20 br/min Systolic Blood Pressure 112 mmHg Diastolic Blood Pressure 59 mmHg LOW Mean Arterial Pressure, Cuff 77 mmHg BP Site Right arm Patient Position BP Supine SpO2 92 % Oxygen Therapy Room air 03/22/2022 7:06 PDT Oxygen Therapy Room air 03/22/2022 4:20 PDT Temperature Temporal 35.8 DegC LOW Temperature Temporal (DegF) 96.44 DegF LOW Peripheral Pulse Rate 60 bpm Respiratory Rate 18 br/min Systolic Blood Pressure 119 mmHg Diastolic Blood Pressure 58 mmHg LOW BP Site Left arm Patient Position BP Supine SpO2 95 % Oxygen Therapy Room air 03/22/2022 0:23 PDT Temperature Temporal 35.7 DegC LOW Temperature Temporal (DegF) 96.26 DegF LOW Peripheral Pulse Rate 69 bpm Respiratory Rate 18 br/min Systolic Blood Pressure 115 mmHg Diastolic Blood Pressure 56 mmHg LOW BP Site Right arm Patient Position BP Supine SpO2 92 % Oxygen Therapy Room air 03/21/2022 20:52 PDT Temperature Temporal In Error DegC (In Error) Temperature Temporal (DegF) In Error DegF (In Error) Peripheral Pulse Rate In Error bpm (In Error) Respiratory Rate In Error br/min (In Error) Systolic Blood Pressure In Error mmHg (In Error) Diastolic Blood Pressure In Error mmHg (In Error) BP Site In Error (In Error) Patient Position BP In Error (In Error) SpO2 In Error % (In Error) Oxygen Therapy In Error (In Error) 03/21/2022 19:20 PDT Oxygen Therapy Room air 03/21/2022 19:15 PDT Temperature Temporal 36.1 DegC LOW Temperature Temporal (DegF) 96.98 DegF LOW Peripheral Pulse Rate 68 bpm Respiratory Rate 16 br/min Systolic Blood Pressure 130 mmHg Diastolic Blood Pressure 58 mmHg LOW BP Site Right arm Patient Position BP Supine SpO2 96 % Oxygen Therapy Room air 03/21/2022 16:13 PDT Temperature Temporal 36.1 DegC LOW Temperature Temporal (DegF) 96.98 DegF LOW Peripheral Pulse Rate 70 bpm Respiratory Rate 20 br/min Systolic Blood Pressure 138 mmHg Diastolic Blood Pressure 63 mmHg BP Site Right arm Patient Position BP Supine SpO2 96 % Oxygen Therapy Room air 03/21/2022 11:49 PDT Temperature Temporal 36.1 DegC LOW Temperature Temporal (DegF) 96.98 DegF LOW Peripheral Pulse Rate 82 bpm Respiratory Rate 20 br/min Systolic Blood Pressure 107 mmHg Diastolic Blood Pressure 59 mmHg LOW BP Site Right arm Patient Position BP Sitting SpO2 95 % Oxygen Therapy Room air 03/21/2022 7:34 PDT Respiratory Rate 18 br/min Oxygen Therapy Room air 03/21/2022 7:31 PDT Temperature Temporal 36.2 DegC LOW Temperature Temporal (DegF) 97.16 DegF LOW Peripheral Pulse Rate 70 bpm Respiratory Rate 20 br/min Systolic Blood Pressure 103 mmHg Diastolic Blood Pressure 51 mmHg LOW BP Site Right arm Patient Position BP Sitting SpO2 91 % LOW Oxygen Therapy Room air 03/21/2022 4:38 PDT Temperature Temporal 36.0 DegC LOW Temperature Temporal (DegF) 96.8 DegF LOW Peripheral Pulse Rate 63 bpm Respiratory Rate 20 br/min Systolic Blood Pressure 107 mmHg Diastolic Blood Pressure 52 mmHg LOW Mean Arterial Pressure, Cuff 70 mmHg BP Site Right arm Patient Position BP Supine SpO2 94 % Oxygen Therapy Room air 03/21/2022 0:34 PDT Temperature Temporal 36.1 DegC LOW Temperature Temporal (DegF) 96.98 DegF LOW Peripheral Pulse Rate 70 bpm Respiratory Rate 20 br/min Systolic Blood Pressure 122 mmHg Diastolic Blood Pressure 58 mmHg LOW Mean Arterial Pressure, Cuff 79 mmHg BP Site Right arm Patient Position BP Supine SpO2 90 % LOW Oxygen Therapy Room air General: Alert and oriented, No acute distress. Neck: Supple, Non-tender, No carotid bruit. Respiratory: Respirations are non-labored, Course crackles in bilateral lung bases. Cardiovascular: Normal rate, Regular rhythm, No murmur. Neurologic: mask like facies, pill rolling tremor at rest, very stiff shuffled movements, specifically with right leg. Results Review Results review Labs (Last four charted values) WBC 7.16 (MARCH 21) Hgb L 12.2 (MARCH 21) Hct L 36.8 (MARCH 21) Plt 151 (MARCH 21) Na 136 (MARCH 21) K 3.8 (MARCH 21) CO2 27 (MARCH 21) Cl 101 (MARCH 21) Cr H 1.55 (MARCH 21) BUN H 39 (MARCH 21) Glucose H 123 (MARCH 21) Ca 9.4 (MARCH 21) Impression and Plan 86 year old with Parkinsons disease, metastatic prostate cancer, who presented to the ER on 03/19 for falls, found to have acute renal impairment, evidence of bacteriuria, and new onset CHF. shortly after admission had hypotension in the 80s/50s. # Encephalopathy: - resolved, metabolic secondary to Parkinsons with acute issues # UTI: - Urine culture grew out >100k CFU skin taiwo - transition to oral Bactrim tomorrow, has received 3 days of Rocephin (today day 3) # Acute CHF: - New diagnosis, has known CAD with h/o stents x4 in the past - continues with course crackles in the lung bases - continue diuresis with lasix, transition to PO 40 mg daily. His creatinine is bumped each day mildly, so will need to monitor levels. - TTE scheudled as outpatient for 03/27 # Hypotension: - Patient was hypotensive shortly after admission in 80s/50s - Resolved - holding home antihypertensives # NANDO: - with diuresis is mildly getting worse daily, continue to monitor # Frequent falls - continue to work with PT # Parkinsons: - we will increase Sinemet to 3 tab with lunch, 2 tab with breakfast and dinner, continue home dose of pramipexole # Prophylaxis: - lovenox # Dispo: - transition to swingbed today, likely will need SNF. Medications aspirin 81 mg oral delayed release [...] Start Date: 03/19/22 Status: Ordered Mental Status 03/23/22 Level of Consciousness Alert Problem List Condition Effective Dates Status Health Status Inform ant HTN (hypertension)(Confirmed) Active Hypothyroid(Confirmed) Active Parkinson disease(Confirmed) Active Prostate cancer, primary, wi th metastasis from prostate to other site(Confirmed) Active Results Laboratory List Name Date Automated Differential 03/21/22 CBC w/ Auto Diff 03/21/22 Comprehensive Metabolic Panel2 (CMP2) Most recent to oldest [Reference Range]: 1 Creatinine Level [0.55-1.30 mg/dL] 1.55 mg/dL *HI* (03/21/22 8:27 AM) AGAP [9-18] 12 (03/21/22 8:27 AM) Albumin Level [3.4-5.0 g/dL] 3.3 g/dL *LOW* (03/21/22 8:27 AM) Alk Phos [46-116 U/L] 108 U/L (03/21/22 8:27 AM) Basophil Auto [0.00-0.20 K/mcL] 0.01 K/m cL (03/21/22 8:27 AM) Bili Total [0.2-1.0 mg/dL] 1.2 mg/dL *HI* (03/21/22 8:27 AM) BUN [7-18 mg/dL] 39 mg/dL *HI* (03/21/22 8:27 AM) Chloride Level [98-107 mmol/L] 101 mmol/ L (03/21/22 8:27 AM) CO2 [21-32 mmol/L] 27 mmol/L (03/21/22 8:27 AM) Eos Auto [0.00-0.45 K/mcL] 0.13 K/mcL (03/21/22 8:27 AM) Glucose Level [74-106 mg/dL] 123 mg/dL *HI* (03/21/22 8:27 AM) Hct [41.0-50.0 %] 36.8 % *LOW* (03/21/22 8:27 AM) Hgb [13.5-18.0 g/dL] 12.2 g/dL *LOW* (03/21/22 8:27 AM) Lymph Auto [1.00-4.80 K/mcL] 0.60 K/mcL *LOW* (03/21/22 8:27 AM) MCH [26.0-34.0 pg] 32.7 pg (03/21/22 8:27 AM) MCHC [31.0-37.0 g/dL] 33.2 g/dL (03/21/22 8:27 AM) MCV [80.0-100.0 fL] 98.7 fL (03/21/22 8:27 AM) Iron Auto [0.00-0.80 K/mcL] 0.92 K/mcL *HI* (03/21/22 8:27 AM) MPV [8.0-12.0 fL] 9.6 fL (03/21/22 8:27 AM) Neutro Auto [1.80-7.70 K/mcL] 5.39 K/mcL (03/21/22 8:27 AM) Platelet 151 *NA* (03/21/22 8:27 AM) Potassium Level [3.5-5.1 mmol/L] 3.8 mmo l/L (03/21/22 8:27 AM) RBC [4.00-5.30 M/uL] 3.73 M/uL *LOW* (03/21/22 8: AM) RDW [10.0-15.0 %] 13.7 % (03/21/22 8:27 AM) Sodium Level [136-145 mmol/L] 136 mmol/L (03/21/22 8:27 AM) Protein Total [6.4-8.2 g/dL] 6.1 g/dL *LOW* (03/21/22 8:27 AM) WBC [4.00-10.00 K/mcL] 7.16 K/mcL (03/21/22 8:27 AM) Calcium Level [8.5-10.1 mg/dL] 9.4 mg/dL (03/21/22 8:27 AM) ALT/SGPT [14-63 U/L] 12 U/L *LOW* (03/21/22 8:27 AM) AST/SGOT [15-37 U/L] 30 U/L (03/21/22 8:27 AM) Auto Eos % [0.0-6.0 %] 1.8 % (03/21/22 8:27 AM) Auto Lymph % [20.0-45.0 %] 8.4 % *LOW* (03/21/22 8:27 AM) Auto Neut % [36.0-70.0 %] 75.4 % *HI* (03/21/22 8:27 AM) Auto Baso % [0.0-2.0 %] 0.1 % (03/21/22 8:27 AM) Auto Iron % [1.0-10.0 %] 12.8 % *HI* (03/21/22 8:27 AM) BUN/Creat Ratio [7-18] 25 *HI* (03/21/22 8:27 AM) A/G Ratio [1.0-2.2] 1.2 (03/21/22 8:27 AM) eGFR AA [>=60] 55 *LOW* (03/21/22 8:27 AM) eGFR Non AA [>=60] 45 *LOW* (03/21/22 8:27 AM) Vital Signs Most recent to oldest [Reference Range]: 1 2 3 Temperature Temporal [36.3-37.8 DegC] 36.3 DegC (03/23/22 7:35 AM) 35.8 DegC *LOW* (03/23/22 4:15 AM) 36.4 DegC (03/23/22 12:10 AM) Temperature Temporal (DegF) [97.3-100 DegF] 97.34 DegF (03/23/22 7:35 AM) 96.44 DegF *LOW* (03/23/22 4:15 AM) 97.52 DegF (03/23/22 12:10 AM) Apical Heart Rate [60-100 bpm] 70 bpm (03/20/22 11:00 AM) Peripheral Pulse Rate [60-100 bpm] 67 bpm (03/23/22 7:35 AM) 64 bpm (03/23/22 4:15 AM) 69 bpm (03/23/22 12:10 AM) Respiratory Rate [14-20 br/min] 16 br/min (03/23/22 7:35 AM) 18 br/min (03/23/22 4:15 AM) 20 br/min (03/23/22 12:10 AM) Blood Pressure [90-140/60-90 mmHg] 124/60mmHg (03/23/22 7:35 AM) 121/56mmHg (03/23/22 4:15 AM) 121/57mmHg (03/23/22 12:10 AM) Mean Arterial Pressure, Cuff [65-100 mmHg] 81 mmHg (03/23/22 7:35 AM) 78 mmHg (03/23/22 12:10 AM) 80 mmHg (03/22/22 5:30 PM) BP Site Right arm (03/23/22 7:35 AM) Left arm (03/23/22 4:15 AM) Left arm (03/23/22 12:10 AM) Patient Position BP Supine (03/23/22 7:35 AM) Supine (03/23/22 4:15 AM) Supine (03/23/22 12:10 AM) SpO2 [92-100 %] 93 % (03/23/22 7:35 AM) 94 % (03/23/22 4:15 AM) 94 % (03/23/22 12:10 AM) Oxygen Therapy Room air (03/23/22 7:35 AM) Room air (03/23/22 7:10 AM) Room air (03/23/22 4:15 AM) Vital Signs Comments RN noted VS. (03/23/22 7:49 AM) After scheduled lasix (03/20/22 11:02 AM) Social History Social History Type Response Tobacco Never tobacco user T obacco Use:. Sex Hospital Discharge Instructions Follow Up Care 03/20/2022 10:09:24 With:Terrell Arellano Address: [address] [place] [address], [place] [id number]- Business (1) When: Unknown Comments:You have an out Patient ECHO scheduled here at [facility] on March 27 @ 1:00pm. With:Jason Kim Address: [address] [place] [phone]- Business (1) When: Unknown Care Team Personnel Name: Jason Kim Address: [address], [place] [address]
--- OUTSIDE RECORDS SUMMARY | 2022-11-21 19:19 | External Medical Summary | Continuity of Care Document ---
Author Name Unknown Organization [facility] Address [address] [address] Care Team Providers Care Financial Director Name Role Phone Jason Kim Primary Care Physician Encounter [facility] Date(s): 09/01/22 - 09/01/22 [facility] [address] [place] [place] [address]- [place] Encounter Diagnosis Unspecified place in unspecified non-institutional (private) residence as the place of occurrence of the external cause(Discharge Diagnosis) - 09/01/22 Fall at home(Discharge Diagnosis) - 09/01/22 Head injury(Discharge Diagnosis) - 09/01/22 Lung mass(Discharge Diagnosis) - 09/01/22 Shortness of breath(Discharge Diagnosis) - 09/01/22 Hypotension(Discharge Diagnosis) - 09/01/22 Aspiration pneumonia(Discharge Diagnosis) - 09/02/22 Discharge Disposition: Admitted as Inpatient Allergies, Adverse Reactions, Alerts No Known Medication Allergies Assessment and Plan Extracted from: Title:ED Provider Note Author:DO Austyn Oreilly Date:09/01/22 1.Fall at homeW19.XXXA - Initial work-up with CBC, CMP, EKG negative for any causes for dizziness or syncope.Chest x-ray withslight congestion,follow-upCT chestwithsigns of aspiration pneumoniaas a possible cause. 2.Head lxuizwS82.90XA - CT head negative for acute bleed 3.Lung massR91.8 - Opacity noted on CXR. Patient has a history of prostatewith pastmention ofmetastasis to the bone. - CT chest ordered to follow-up, described the opacity as characteristic of aspiration pneumonia. 4.XzdhqrzzdmaH77.9 - 2L NS given in the ED,started onNS at 100.This is likely related to hissepsis andsource control was started withampicillin/sulbactam 5.Shortness of cquvmwJ21.02 - On RA at home but requiring initial 10L non-rebreather, then down to 5L NC in the ER. Still only saturating in the low 90's. 6.Aspiration wmjnybfbhZ55.0 - As above Dispo: Admit to hospital floor for aspiration pneumonia to be monitored on obs for IV antibiotics, fluids. Patient is DNR/DNI but would like to continue treatment for his pneumonia, will visit comfort care discussion if indicated during his hospitalization. This note can serve as both the ED Note and Admission H&P. Unspecified place in unspecified non-institutional (private) residence as the place of occurrence of the external [id number] Orders: ampicillin-sulbactam, 3 gm = 1 EA, REC Injection, IV Piggyback, q6hr (int), Medication Indication Pneumonia- Aspiration, Start date 09/01/22 22:00:00 PDT, 100 mL/hr, Infuse over 60 minute(s), 09/01/22 21:39:00 PDT Normal Saline 1,000 mL, 1,000 mL, IV, Routine, Start date 09/01/22 22:34:00 PDT, 100 mL/hr, 10, hr, Total volume (mL): 1,000, 72 kg, 1.92, m2, 09/01/22 22:34:00 PDT Admit to Inpatient [facility], 09/01/22 23:50:00 PDT, Inpatient Status, Aspiration pneumonia Cardiac Monitoring, 09/01/22 20:14:00 PDT, Constant Order CBC w/ Auto Diff, Blood, Routine collect, 09/02/22 7:00:00 PDT, Daily for 5 day(s), Stop date 09/07/22 6:59:00 PST, Lab Collect Comprehensive Metabolic Panel2, Blood, Routine collect, 09/02/22 7:00:00 PDT, Daily for 5 day(s), Stop date 09/07/22 6:59:00 PST, Lab Collect CT Angiography Chest w/ Contrast, 09/01/22 19:17:00 PDT Routine, hypoxia, opacification on lung xray, Allow Modification Per Radiologist, Transport Mode: Wheelchair, 09/01/22 19:17:[address] Head or Brain w/o Contrast, 09/01/22 18:33:00 PDT Routine, decrease LOC, Allow Modification Per Radiologist, Transport Mode: Wheelchair, 09/01/22 18:33:00 PDT Diet Order, 09/01/22 23:50:00 PDT, Full Liquid, Nursing Isolation Status: None, will fill in details, Constant Indicator ECG, 09/01/22 18:19:00 PDT, Other, Stop Date 09/01/22 18:19:00 PDT, No Elevate Head of Bed, 09/01/22 23:50:00 PDT, Elevate head of bed 30 degrees, 09/01/22 23:50:00 PDT Insert Combs Cath, 09/01/22 21:08:00 PDT, Indwelling, Reason: Strict Intake and Output, 09/01/22 21:08:00 PDT Notify Provider Vital Signs, 09/01/22 23:50:00 PDT, HR >100 or <55 Notify Provider Vital Signs, 09/01/22 23:50:00 PDT, RR >25 or <8 Notify Provider Vital Signs, 09/01/22 23:50:00 PDT, SBP >160 or <100 Notify Provider Vital Signs, 09/01/22 23:50:00 PDT, DBP >100 or <50 Notify Provider Vital Signs, 09/01/22 23:50:00 PDT, O2 saturations <88 Oxygen Therapy, 09/01/22 23:50:00 PDT, O2 saturation at or greater than 90%, 09/01/22 23:50:00 PDT Oxygen Therapy, 09/01/22 20:13:00 PDT, 09/01/22 20:13:00 PDT Physical Therapy - Evaluation and Treatment, 09/01/22 23:50:00 PDT, Once Pulse Oximetry Continuous [facility], 09/01/22 23:50:00 PDT, Daily, 09/01/22 23:50:00 PDT Resuscitation Status, 09/01/22 23:50:00 PDT, Do Not Resuscitate, Constant Order Sputum Culture w/Gram Stain PRL, Sputum, 09/01/22 21:08:00 PDT by Matthew Velazquez RN, Routine collect, Stop date 09/01/22 21:08:00 PDT, Lab Collect Telemetry, 09/01/22 23:50:00 PDT, for 24 hr, Constant Indicator Up in Chair for Meals, 09/01/22 23:50:00 PDT, 09/01/22 23:50:00 PDT XR Chest 1 View, 09/01/22 18:35:00 PDT Routine, cough, decrease LOC, Allow Modification Per Radiologist, Transport Mode: Portable, 09/01/22 18:35:00 PDT Diagnostic Tests Pending * Sputum Culture w/Gram Stain PRL 09/01/22 Future Scheduled Tests Radiology* US Echo 2D Complete EO 03/27/22 Functional Status 09/01/22 Other exposure to Infectious Disease Non e [...] Start Date: 03/19/22 Status: Ordered Mental Status 09/01/22 Level of Consciousness Comatose Problem List Condition Confirmation Course Effective Dates Status Health St atus Informant HTN (hypertension) Confirmed Active Hypothyroid Confirmed Active Parkinson disease Confirmed Active Prostate cancer, primary, 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 Confirmed Active Results Laboratory List Name Date UA Routine 09/01/22 SARS-CoV-2 (COVID-19) PCR (GeneXpert) Automated Differential 09/01/22 CBC w/ Auto Diff 09/01/22 Comprehensive Metabolic Panel2 (CMP2) Troponin I High Sensitivity 09/01/22 Most recent to oldest [Reference Range]: 1 Creatinine Level [0.55-1.30 mg/dL] 1.19 mg/dL (09/01/22 6:21 PM) UA Bacteria [None] Few (09/01/22 9:05 PM) UA Blood [Negative] Negative (09/01/22 9:05 PM) UA Color [Yellow] Yellow (09/01/22 9:05 PM) UA Glucose [Negative] Negative (09/01/22 9:05 PM) UA Ketones [Negative] Negative (09/01/22 9:05 PM) UA Nitrite [Negative] Negative (09/01/22 9:05 PM) UA Protein [Negative] Negative (09/01/22 9:05 PM) UA Urobilinogen [0.2-1.0] 0.2 (09/01/22 9:05 PM) UA Yeast [None] None (09/01/22 9:05 PM) AGAP [9-18] 11 (09/01/22 6:21 PM) UA pH [4.0-8.0] 5.0 (09/01/22 9:05 PM) Albumin Level [3.4-5.0 g/dL] 3.4 g/dL (09/01/22 6:21 PM) Alk Phos [46-116 U/L] 208 U/L *HI* (09/01/22 6:21 PM) Basophil Auto [0.00-0.20 K/mcL] 0.01 K/m cL (09/01/22 6:21 PM) Bili Total [0.2-1.0 mg/dL] 1.0 mg/dL (09/01/22 6:21 PM) BUN [7-18 mg/dL] 38 mg/dL *HI* (09/01/22 6:21 PM) Chloride Level [98-107 mmol/L] 100 mmol/ L (09/01/22 6:21 PM) CO2 [21-32 mmol/L] 28 mmol/L (09/01/22: PM) Eos Auto [0.00-0.45 K/mcL] 0.02 K/mcL (09/01/22: PM) Glucose Level [74-106 mg/dL] 123 mg/dL *HI* (09/01/22 PM) Hct [41.0-50.0 %] 40.4 % *LOW* (09/01/22 PM) Hgb [13.5-18.0 g/dL] 13.4 g/dL *LOW* (09/01/22 PM) Lymph Auto [1.00-4.80 K/mcL] 0.17 K/mcL *LOW* (09/01/22 PM) MCH [26.0-34.0 pg] 31.6 pg (09/01/22 PM) MCHC [31.0-37.0 g/dL] 33.2 g/dL (09/01/22 PM) MCV [80.0-100.0 fL] 95.3 fL (09/01/22: PM) [place] Auto [0.00-0.80 K/mcL] 0.17 K/mcL (09/01/22: PM) MPV [8.0-12.0 fL] 9.3 fL (09/01/22: PM) Neutro Auto [1.80-7.70 K/mcL] 7.33 K/mcL (09/01/22: PM) Platelet [150-400] 205 (09/01/22 PM) Potassium Level [3.5-5.1 mmol/L] 4.0 mmo l/L (09/01/22 PM) RBC [4.00-5.30 M/uL] 4.24 M/uL (09/01/22 PM) RDW [10.0-15.0 %] 14.0 % (09/01/22 PM) Sodium Level [136-145 mmol/L] 135 mmol/L *LOW* (09/01/22 PM) Protein Total [6.4-8.2 g/dL] 5.9 g/dL *LOW* (10/31/22 6:21 PM) WBC [4.00-10.00 K/mcL] 7.75 K/mcL (09/01/22 6:21 PM) Calcium Level [8.5-10.1 mg/dL] 9.5 mg/dL (09/01/22 6:21 PM) ALT/SGPT [14-63 U/L] 6 U/L *LOW* (09/01/22 6:21 PM) AST/SGOT [15-37 U/L] 14 U/L *LOW* (09/01/22 6:21 PM) Auto Eos % [0.0-6.0 %] 0.3 % (09/01/22 6:21 PM) Auto Lymph % [20.0-45.0 %] 2.2 % *LOW* (09/01/22 6:21 PM) Auto Neut % [36.0-70.0 %] 94.6 % *HI* (09/01/22 6:21 PM) UA Clarity [Clear] Clear (09/01/22 9:05 PM) Auto Baso % [0.0-2.0 %] 0.1 % (09/01/22 6:21 PM) Auto [place] % [1.0-10.0 %] 2.2 % (09/01/22 6:21 PM) BUN/Creat Ratio [7-18] 32 *HI* (09/01/22 6:21 PM) A/G Ratio [1.0-2.2] 1.4 (09/01/22 6:21 PM) Troponin I High Sensitivity [0.0-50.0 pg /mL] 22.2 pg/mL (09/01/22 6:21 PM) eGFR AA [>=60] 74 (09/01/22 6:21 PM) eGFR Non AA [>=60] 61 (09/01/22 6:21 PM) SARS-CoV-2 (COVID-19) PCR (WISETIVIpert) [N egative] Negative (09/01/22 8:45 PM) Employed in healthcare? No *NA* (09/01/22 8:45 PM) Symptomatic as defined by CDC? No *NA* (09/01/22 8:45 PM) Hospitalized due to COVID-19? No *NA* (09/01/22 8:45 PM) In ICU? No *NA* (09/01/22 8:45 PM) Group care resident? No *NA* (09/01/22 8:45 PM) status? Not *NA* (09/01/22 8:45 PM) Amorphous Sediments [None] None (09/01/22 9:05 PM) Urine Casts [None] None (09/01/22 9:05 PM) Urine Mucous [None] None (09/01/22 9:05 PM) Urine Epithelials 1 *NA* (09/01/22 9:05 PM) Microscopic RBC [None] 0-1 (09/01/22 9:05 PM) Microscopic WBC [None] 0-1 (09/01/22 9:05 PM) Urine Crystals [None] None (09/01/22 9:05 PM) UA Leukocytes [Negative] Negative (09/01/22 9:05 PM) UA Specific [place] [1.005-1.035] 1.010 (09/01/22 9:05 PM) UA Bilirubin [Negative] Negative (09/01/22 9:05 PM) Vital Signs Most recent to oldest [Reference Range]: 1 2 3 Heart Rate Monitored [60-100 bpm] 82 bpm (09/01/22 10:41 PM) 88 bpm (09/01/22 10:23 PM) 86 bpm (09/01/22 10:05 PM) Blood Pressure [90-140/60-90 mmHg] 98/52mmHg (09/01/22 11:27 PM) 92/50mmHg (09/01/22 11:07 PM) 77/53mmHg *LOW* (09/01/22 11:03 PM) Mean Arterial Pressure, Cuff [65-100 mmHg] 60 mmHg *LOW* (09/01/22 9:57 PM) BP Site Left arm (09/01/22 11:07 PM) Right arm (09/01/22 9:57 PM) Right arm (09/01/22 9:32 PM) SpO2 [92-100 %] 92 % (09/01/22 10:41 PM) 91 % *LOW* (09/01/22 10:23 PM) 92 % (09/01/22 10:05 PM) Oxygen Flow Rate 5 L/min (09/01/22 10:41 PM) 5 L/min (09/01/22 10:23 PM) 5 L/min (09/01/22 9:57 PM) Oxygen Therapy Oxymask (09/01/22 10:41 PM) Oxymask (09/01/22 10:23 PM) Oxymask (09/01/22 10:05 PM) BP Method Manual (09/01/22 11:07 PM) Automatic (09/01/22 11:02 PM) Automatic (09/01/22 10:57 PM) Social History Social History Type Response Tobacco Never tobacco user T obacco Use:. Sex [facility]als [facility] His son Sheng will transport. Start Date:03/26/22 End Date:03/26/22 Status:Met Progression:Not Met Physician Emergency department Note * DO Jazmine Oreilly: PERFORM, MODIFY, MODIFY, MODIFY, MODIFY, MODIFY, MODIFY, MODIFY, MODIFY, MODIFY, MODIFY, MODIFY, MODIFY, MODIFY, MODIFY, MODIFY, MODIFY, MODIFY, MODIFY, MODIFY Event Display: ED Note - Physician Authored Date: [id number] LEN YAO : 1935 Age: 87 years Sex: MALE Visit Date: 09/01/2022 Primary Care Physician: Jason Kim Basic Information No qualifying data available. History Of Present Illness: 87-year-old male presenting forevaluation in the [facility] sustaining a fall at home.Past medical history significant forParkinson's,hypothyroidism,prostate cancerwithmetastasis(received immunotherapy 6 months ago, due for another course starting tomorrow). Seenin the ER on 08/24 the last time he had fallen, work-up for the head injury was negativewas sent home after observation overnightat that time.The current episodeplace around 1715this evening, his sondid not witness the fall but heardhim in the other room and rapidly went tosee him.Althoughhe did not lose consciousness he was not responding appropriatelyandinitially after the fall.Was brought directly to the ERfor evaluation and given supplemental oxygen, at which timehe was back to baselinemental status, conversing appropriately perreport from his daughter. Review of Systems: As noted above. Physical Exam Vitals & Measurements HR:72(Monitored) BP:101/52 SpO2:92% O2 Flow Rate:10 O2 Therapy:Nonrebreather mask General: Alert andoriented x3 Psych: No acute distress CV: Regular rate and rhythm, no murmur Pulm: Normal effort, rales notedalongthe lower lungs bilaterally, worse on the right Abd: Normal bowel sounds, non-tender to palpation, no masses Neuro: No gross motor deficits Assessment/Plan 1.Fall at homeW19.XXXA - Initial work-up with CBC, CMP, EKG negative for any causes for dizziness or syncope.Chest x-ray withslight congestion,follow-upCT chestwithsigns of aspiration pneumoniaas a possiblecause. 2.Head yhsyqdX57.90XA - CT head negative for acute bleed 3.Lung massR91.8 - Opacity noted on CXR. Patient has a history of prostatewith pastmention ofmetastasis to thebone. - CT chest ordered to follow-up, described the opacity as characteristic of aspiration pneumonia. 4.VzsjhcuegglT59.9 - 2L NS given in the ED,started onNS at 100.This is likely related to hissepsis andsource control was started withampicillin/sulbactam 5.Shortness of okigjnL32.02 - On RA at home but requiring initial 10L non-rebreather, then down to 5L NC in the ER. Still only saturating in the low 90's. 6.Aspiration ekxnufjpkM63.0 - As above Dispo: Admit to hospital floor for aspiration pneumonia to be monitored on obs for IV antibiotics, fluids. Patient is DNR/DNI but would like to continue treatment for his pneumonia, will visit comfort care discussion if indicated during his hospitalization. This note can serve as both the ED Note and Admission H&P. Unspecified place in unspecified non-institutional (private) residence as the place of occurrence of the external [id number] Orders: ampicillin-sulbactam, 3 gm = 1 EA, REC Injection, IV Piggyback, q6hr (int), Medication Indication Pneumonia- Aspiration, Start date 09/01/22 22:00:00 PDT, 100 mL/hr, Infuse over 60 minute(s), 09/01/22 21:39:00 PDT Normal Saline 1,000 mL, 1,000 mL, IV, Routine, Start date 09/01/22 22:34:00 PDT, 100 mL/hr, 10, hr,Total volume (mL): 1,000, 72 kg, 1.92, m2, 09/01/22 22:34:00 PDT Admit to Inpatient [facility], 09/01/22 23:50:00 PDT, Inpatient Status, Aspiration pneumonia Cardiac Monitoring, 09/01/22 20:14:00 PDT, Constant Order CBC w/ Auto Diff, Blood, Routine collect, 09/02/22 7:00:00 PDT, Daily for 5 day(s), Stop date 09/07/22 6:59:00 PST, Lab Collect Comprehensive Metabolic Panel2, Blood, Routine collect, 09/02/22 7:00:00 PDT, Daily for 5 day(s), Stop date 09/07/22 6:59:00 PST, Lab Collect CT Angiography Chest w/ Contrast, 09/01/22 19:17:00 PDT Routine, hypoxia, opacification on lung xray, Allow Modification Per Radiologist, Transport Mode: Wheelchair, 09/01/22 19:17:[address] Head or Brain w/o Contrast, 09/01/22 18:33:00 PDT Routine, decrease LOC, Allow Modification Per Radiologist, Transport Mode: Wheelchair, 09/01/22 18:33:00 PDT Diet Order, 09/01/22 23:50:00 PDT, Full Liquid, Nursing Isolation Status: None, will fill in details, Constant Indicator ECG, 09/01/22 18:19:00 PDT, Other, Stop Date 09/01/22 18:19:00 PDT, No Elevate Head of Bed, 09/01/22 23:50:00 PDT, Elevate head of bed 30 degrees, 09/01/22 23:50:00 PDT Insert Combs Cath, 09/01/22 21:08:00 PDT, Indwelling, Reason: Strict Intake and Output, 09/01/22 21:08:00 PDT Notify Provider Vital Signs, 09/01/22 23:50:00 PDT, HR >100 or <55 Notify Provider Vital Signs, 09/01/22 23:50:00 PDT, RR >25 or <8 Notify Provider Vital Signs, 09/01/22 23:50:00 PDT, SBP >160 or <100 Notify Provider Vital Signs, 09/01/22 23:50:00 PDT, DBP >100 or <50 Notify Provider Vital Signs, 09/01/22 23:50:00 PDT, O2 saturations <88 Oxygen Therapy, 09/01/22 23:50:00 PDT, O2 saturation at or greater than 90%, 09/01/22 23:50:00 PDT Oxygen Therapy, 09/01/22 20:13:00 PDT, 09/01/22 20:13:00 PDT Physical Therapy - Evaluation and Treatment, 09/01/22 23:50:00 PDT, Once Pulse Oximetry Continuous [facility], 09/01/22 23:50:00 PDT, Daily, 09/01/22 23:50:00 PDT Resuscitation Status, 09/01/22 23:50:00 PDT, Do Not Resuscitate, Constant Order Sputum Culture w/Gram Stain PRL, Sputum, 09/01/22 21:08:00 PDT by Matthew Velazquez RN, Routine collect,Stop date 09/01/22 21:08:00 PDT, Lab Collect Telemetry, 09/01/22 23:50:00 PDT, for 24 hr, Constant Indicator Up in Chair for Meals, 09/01/22 23:50:00 PDT, 09/01/22 23:50:00 PDT XR Chest 1 View, 09/01/22 18:35:00 PDT Routine, cough, decrease LOC, Allow Modification Per Radiologist, Transport Mode: Portable, 09/01/22 18:35:00 PDT Medication Reconciliation Unchanged aspirin (aspirin 81 mg oral delayed release tablet)1 tab(s) Oral every day. carbidopa-levodopa (carbidopa-levodopa 25 mg-100 mg oral tablet)1 tab(s) Oral As Directed. 2 tabs QAM, 2 tabs QPM and 3 tabs in afternoon. carvedilol (carvedilol 3.125 mg oral tablet)1 tab(s) Oral At bedtime. citalopram (citalopram 20 mg oral tablet)1 tab(s) Oral every day. furosemide5 Milligram Oral 2 times a day. hydrochlorothiazide-triamterene (hctz-triamterene 25-37.5mg)1 tab(s) Oral every day. levothyroxine (levothyroxine 75 mcg (0.075 mg) oral tablet)1 tab(s) Oral every day. potassium [id number] Milliequivalent Oral 2 times a day. pramipexole (pramipexole 0.25 mg oral tablet)1 tab(s) Oral 2 times a day. Problem List/Past Medical History Ongoing HTN (hypertension) Hypothyroid Parkinson disease Prostate cancer, primary, 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 Historical No qualifying data Allergies No Known Medication Allergies Social History Electronic Cigarette/Vaping Electronic Cigarette Use: Never. Tobacco Never tobacco user Tobacco Use:. Lab Results Routine Chemistry LATEST RESULTS HISTORICAL RESULTS Sodium Level 09/01/22 18:21 135 Low 08/24/22 136 Potassium Level 09/01/22 18:21 4.0 08/24/22 4.2 Chloride Level 09/01/22 18:21 100 08/24/22 102 CO2 09/01/22 18:21 28 08/24/22 28 AGAP 09/01/22 18:21 11 08/24/22 10 Glucose Level 09/01/22 18:21 123 High 08/24/22 101 BUN 09/01/22 18:21 38 High 08/24/22 39 High Creatinine Level 09/01/22 18:21 1.19 08/24/22 1.19 BUN/Creat Ratio 09/01/22 18:21 32 High 08/24/22 33 High eGFR AA 09/01/22 18:21 74 08/24/22 74 eGFR Non AA 09/01/22 18:21 61 08/24/22 61 Calcium Level 09/01/22 18:21 9.5 08/24/22 9.5 Bili Total 09/01/22 18:21 1.0 08/23/22 1.0 Alk Phos 09/01/22 18:21 208 High 08/23/22 178 High AST/SGOT 09/01/22 18:21 14 Low 08/23/22 16 ALT/SGPT 09/01/22 18:21 6 Low 08/23/22 8 Low Protein Total 09/01/22 18:21 5.9 Low 08/23/22 6.3 Low Albumin Level 09/01/22 18:21 3.4 08/23/22 4.0 A/G Ratio 09/01/22 18:21 1.4 08/23/22 1.7 Cardiac Isoenzymes LATEST RESULTS HISTORICAL RESULTS Troponin I High Sensitivity 09/01/22 18:21 22.2 08/23/22 26.8 CBC LATEST RESULTS HISTORICAL RESULTS WBC 09/01/22 18:21 7.75 08/24/22 5.10 RBC 09/01/22 18:21 4.24 08/24/22 3.81 Low Hgb 09/01/22 18:21 13.4 Low 08/24/22 12.1 Low Hct 09/01/22 18:21 40.4 Low 08/24/22 35.7 Low MCV 09/01/22 18:21 95.3 08/24/22 93.7 MCH 09/01/22 18:21 31.6 08/24/22 31.8 MCHC 09/01/22 18:21 33.2 08/24/22 33.9 RDW 09/01/22 18:21 14.0 08/24/22 13.9 Platelet 09/01/22 18:21 205 08/24/22 182 MPV 09/01/22 18:21 9.3 08/24/22 9.4 Differential LATEST RESULTS HISTORICAL RESULTS Neutro Auto 09/01/22 18:21 7.33 08/24/22 3.84 Lymph Auto 09/01/22 18:21 0.17 Low 08/24/22 0.45 Low [place] Auto 09/01/22 18:21 0.17 08/24/22 0.56 Eos Auto 09/01/22 18:21 0.02 08/24/22 0.06 Basophil Auto 09/01/22 18:21 0.01 08/24/22 0.01 Auto Neut % 09/01/22 18:21 94.6 High 08/24/22 75.3 High Auto Lymph % 09/01/22 18:21 2.2 Low 08/24/22 8.8 Low Auto [place] % 09/01/22 18:21 2.2 08/24/22 11.0 High Auto Eos % 09/01/22 18:21 0.3 08/24/22 1.2 Auto Baso % 09/01/22 18:21 0.1 08/24/22 0.2 [Electronically Signed on: 09/01/2022 23:52 PDT] DO Jazmine Oreilly [Verified on: 09/01/2022 23:52 PDT] DO Jazmine Oreilly Patient Care team information Personnel Name: Jason Kim Address: Address: [facility] [address] [place] [address], [place] [phone]- [place]
--- OUTSIDE RECORDS SUMMARY | 2022-11-21 19:19 | External Medical Summary | Continuity of Care Document ---
Author Name Unknown Organization [facility] Address [address] [place] [address] Care Team Providers Care Panel Wirer Name Role Phone Terrell Arellano Primary Care Physician Carmela Hester Unavailable Unavailable Willa Ashton Unavailable Unavailabl e Encounter [facility] Date(s): 11/04/22 - 11/04/22 [facility] [address] [place] [facility] [place] [address]- [place] Discharge Disposition: Home Attending Physician: MD Terrell Arellano Admitting Physician: MD Terrell Arellano Allergies, Adverse Reactions, [...] tab(s), 11 Refill(s), Pharmacy: [facility] 2 tab(s) PO Daily, 185, cm, [...] # 10 tab(s), 0 Refill(s), Pharmacy: [facility] 1 tab(s) PO Daily,x10 day(s), 185, cm, 09/05/22 18:23:00 PDT, Height/Length Dosing, 72, kg, 08/24/22 1:30:00 PDT, Weight Dosing Start Date: 09/29/22 Stop Date: 10/09/22 Status: Ordered potassium chloride 10 mEq oral capsule, extended release ( 20 mEq ), ER Capsule, PO, Daily, # 30 tab(s), 11 Refill(s), Pharmacy: [facility] 20 mEq PO Daily, 185, cm, 09/05/22 18:23:00 PDT, Height/Length Dosing, 72, kg, 08/24/22 1:30:00 PDT, Weight Dosing Start Date: 09/08/22 Status: Ordered pramipexole 0.25 mg oral tablet 1 tab(s) ( 0.25 mg ), Tab, PO, BID, # 60 tab(s), 11 Refill(s), Pharmacy: [facility] 1 tab(s) PO BID, 185, cm, [...] # 30 tab(s), 2 Refill(s), Pharmacy: [facility] 1 tab(s) PO Once a day [...] site Confirmed Active Chest congestion Confirmed Active Results Laboratory List Name Date Creatinine 11/04/22 Most recent to oldest [Reference Range]: 1 Creatinine Level [0.55-1.30 mg/dL] 0.86 mg/dL (11/04/22 8:04 AM) eGFR AA [>=60] 108 (11/04/22 8:04 AM) eGFR Non AA [>=60] 89 (11/04/22 8:04 AM) Radiology Reports * Exam Date Time Procedure Performing Provider Status 11/04/22 9:[address] Chest /Abdomen/Pe lvis w/ Contrast Chaparro Doe; Francy (Verified) Notes: (CT Chest /Abdomen/Pelvis w/ Contrast) Reason For Exam: Prostate cancer;Other Reason not listed (CT Chest /Abdomen/Pelvis w/ Contrast) Radiation Dose Estimate: CTDI DLP(mGy-cm) Body Part Effective Dose(mSv) -- 606.3000 -- 0.0000 Total Effective Dose: 0.228005 mSv CT Chest/Abdomen/Pelvis w/ Contrast [facility] DATE OF EXAM: 11/04/2022 9:29 AM HISTORY: Prostate cancer. PROVIDER: Terrell Arellano COMPARISON: CT chest 01 September 2022. TECHNIQUE: Axial CT chest, abdomen, pelvis. Hyperosmolar nonionic intravenous contrast media. Reformatted imaging included. FINDINGS: Multifocal bilateral infiltrates worse in the lateral segment right middle lobe and right lower lobe respectively. Tiny bilateral pleural effusions. Stable marked cardiomegaly. Severe atherosclerotic vascular calcifications thoracic aorta. The thoracic osseous structures reveal no new focal concerning osseous lesion. There is suggestion of a saber-sheath trachea image 17 series 2. The esophagus is patulous with dependent soft tissue attenuation proximal thoracic esophagus. This could represent mucosal thickening or fluid residual. CT abdomen and pelvis: No new intrahepatic mass. Nonspecific splenomegaly. Severe atherosclerotic vascular calcifications are seen throughout the abdominal aorta extending into the mesenteric branches. 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 Moderate stenosis proximal SMA. Moderate stenosis proximal ostia right renal artery. Mild stenosis proximal ostial left renal artery. The JOELLE is patent. The small bowel is nondilated and opacified by contrast media. The large bowel reveals moderate stool retention with colonic diverticula. Possible rectosigmoid fecal impaction. Urinary bladder unremarkable. Pancreas is nearly completely fatty replaced. No adrenal gland masses. Kidneys reveal bilateral renal parenchymal thinning. No solid renal mass. Possible extrarenal pelvis bilaterally. Remote vertebroplasty procedure L2. Surgical changes consistent with remote translumbar interbody instrumentation laminotomy and fusion L4-L5 and L5-S1. Arthroplasty surgery right hip. No new focal concerning osseous lesions. IMPRESSION: Multifocal, bilateral pulmonary infiltrates with small pleural effusions. Correlate for multifocal pneumonia. Patulous esophagus with dependent soft tissue attenuation proximal thoracic esophagus. This could represent mucosal thickening or food residual. 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 Moderate stenosis right renal artery with mild stenosis on the left. Possible rectosigmoid fecal impaction. No evidence of new distant metastasis in the abdomen or pelvis. THIS IS AN ELECTRONICALLY SIGNED REPORT IN [id number] BY Terrell Moore M.D. on 11/04/2022 10:01 AM [facility] Final Signed (Electronic Signature): MD TERRELL MOORE 11/04/22 10:01 a Technologist: CITLALY * Exam Date Time Procedure Performing Provider Status 11/04/22 9:[address] Head or Brain w/o Contrast Chaparro Doe; Auth (Verified) Notes: (CT Head or Brain w/o Contrast) Radiation Dose Estimate: CTDI DLP(mGy-cm) Body Part Effective Dose(mSv) -- 1008.2000 -- 0.0000 Total Effective Dose: 0.943224 mSv (CT Head or Brain w/o Contrast) Reason For Exam: Prostate cancer CT Head or Brain w/o Contrast [facility] DATE OF EXAM: 11/04/2022 9:29 AM HISTORY: Prostate cancer. PROVIDER: Terrell Arellano COMPARISON: Unenhanced CT brain 01 September 2022. TECHNIQUE: Axial CT brain. No contrast. Reformatted included. FINDINGS: No unenhanced CT evidence of new central nervous system metastasis since previous exam. Diffuse periventricular white matter hypodensities. Moderately severe symmetric parenchymal atrophy. 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 Atherosclerotic changes distal internal carotid arteries bilaterally. Bony calvarium intact. Intraorbital contents unremarkable. Minimal mucosal thickening maxillary sinuses. Mastoid air cells are clear. IMPRESSION: No new acute intracranial pathology. THIS IS AN ELECTRONICALLY SIGNED REPORT IN [employer]ESS[employer] BY Terrell Moore M.D. on 11/04/2022 9:51 AM [email or web address] Final Signed (Electronic Signature): MD TERRELL MOORE 11/04/22 9:51 am Technologist: CITLALY Social History Social History Type Response Tobacco Never tobacco user T obacco Use:. Sex Goals Len will dc to [facility]. His son Sheng will transport. Start Date:03/26/22 End Date:03/26/22 Status:Met Progression:Not Met CT Head WO contrast * MD TERRELL MOORE: VERIFY, VERIFY DomainUser, Generated: PERFORM Event Display: Radiology Report Authored Date: [id number] [facility] DATE OF EXAM: 11/04/2022 9:29 AM HISTORY: Prostate cancer. PROVIDER: Terrell Arellano COMPARISON: Unenhanced CT brain 01 September 2022. TECHNIQUE: Axial CT brain. No contrast. Reformatted included. FINDINGS: No unenhanced CT evidence of new central nervous system metastasis since previous exam. Diffuse periventricular white matter hypodensities. Moderately severe symmetric parenchymal atrophy. 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 Atherosclerotic changes distal internal carotid arteries bilaterally. Bony calvarium intact. Intraorbital contents unremarkable. Minimal mucosal thickening maxillary sinuses. Mastoid air cells are clear. IMPRESSION: No new acute intracranial pathology. THIS IS AN ELECTRONICALLY SIGNED REPORT IN [employer]ESSBOOM BY Terrell Moore M.D. on 11/04/2022 9:51 AM [facility] Final Signed (Electronic Signature): MD TERRELL MOORE 11/04/22 9:51 am Technologist: MM CT Chest and Abdomen and Pelvis W contrast IV * MD TERRELL MOORE: VERIFY, VERIFY MD TERRELL MOORE: VERIFY DomainUser, Generated: PERFORM Event Display: Radiology Report Authored Date: [id number] [facility] DATE OF EXAM: 11/04/2022 9:29 AM HISTORY: Prostate cancer. PROVIDER: Terrell Arellano COMPARISON: CT chest 01 September 2022. TECHNIQUE: Axial CT chest, abdomen, pelvis. Hyperosmolar nonionic intravenous contrast media. Reformatted imaging included. FINDINGS: Multifocal bilateral infiltrates worse in the lateral segment right middle lobe and right lower lobe respectively. Tiny bilateral pleural effusions. Stable marked cardiomegaly. Severe atherosclerotic vascular calcifications thoracic aorta. The thoracic osseous structures reveal no new focal concerning osseous lesion. There is suggestion of a saber-sheath trachea image 17 series 2. The esophagus is patulous with dependent soft tissue attenuation proximal thoracic esophagus. This could represent mucosal thickening or fluid residual. CT abdomen and pelvis: No new intrahepatic mass. Nonspecific splenomegaly. Severe atherosclerotic vascular calcifications are seen throughout the abdominal aorta extending into the mesenteric branches. 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 Moderate stenosis proximal SMA. Moderate stenosis proximal ostia right renal artery. Mild stenosis proximal ostial left renal artery. The JOELLE is patent. The small bowel is nondilated and opacified by contrast media. The large bowel reveals moderate stool retention with colonic diverticula. Possible rectosigmoid fecal impaction. Urinary bladder unremarkable. Pancreas is nearly completely fatty replaced. No adrenal gland masses. Kidneys reveal bilateral renal parenchymal thinning. No solid renal mass. Possible extrarenal pelvis bilaterally. Remote vertebroplasty procedure L2. Surgical changes consistent with remote translumbar interbody instrumentation laminotomy and fusion L4-L5 and L5-S1. Arthroplasty surgery right hip. No new focal concerning osseous lesions. IMPRESSION: Multifocal, bilateral pulmonary infiltrates with small pleural effusions. Correlate for multifocal pneumonia. Patulous esophagus with dependent soft tissue attenuation proximal thoracic esophagus. This could represent mucosal thickening or food residual. 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 Moderate stenosis right renal artery with mild stenosis on the left. Possible rectosigmoid fecal impaction. No evidence of new distant metastasis in the abdomen or pelvis. THIS IS AN ELECTRONICALLY SIGNED REPORT IN [id number] BY Terrell Moore M.D. on 11/04/2022 10:01 AM [facility] Final Signed (Electronic Signature): MD TERRELL MOORE 11/04/22 10:01 a Technologist: CITLALY Patient Care team information Personnel Name: MD Terrell Arellano Address: Address: [address] [place] [address], [place] [id number]- [place] Name: Carmela Hester Name: Willa Ashton
--- OUTSIDE RECORDS SUMMARY | 2022-11-21 19:19 | External Medical Summary | Continuity of Care Document ---
Author Name Unknown Organization [facility] Address [address] [place] [place] [address] Care Team Providers Care Intake Coordinator Name Role Phone Jason Kim Primary Care Physician Encounter [facility] Date(s): 09/01/22 - 09/05/22 [facility] [address] [facility] [place] [address]- [place] Encounter Diagnosis Sacral wound(Discharge Diagnosis) - 09/03/22 Constipation(Discharge Diagnosis) - 09/03/22 Aspiration pneumonia(Discharge Diagnosis) - 09/03/22 Discharge Disposition: Swing Bed Attending Physician: DO Jazmine Oreilly Admitting Physician: DO Jazmine Oreilly Allergies, Adverse Reactions, Alerts No Known Medication Allergies Assessment and Plan Extracted from: Title:SOAP Note: Simple * Author:MD Margarita Arellano Date:09/04/22 Impression and Plan 87 year old male with Parkinsons disease, metastatic prostate cancer, who presented to our ER on 09/02 with a fall at home, altered mental status. Was found to have pneumonia, with pattern of infiltrate concerning for aspiration # Severe sepsis and acute respiratory failure with hypoxia due to pneumonia - Favor aspiration per appearance on CTA, however, lymphocytopenia is noted on CBC. Negative COVID, negative influenza - Continue unasyn - Improving O2 sats, down to 2L today. # Hypotension - resolved # Altered mental status - Present on arrival. CT head wnl on arrival. - Resolved. # Weakness - Profound. PT to consult # Pressure ulcer - Wound care treating # Parkinsons - Continue home Sinemet # Code Status - DNR/DNI per discussion upon arrival # Dispo - Continue inpatient status. I expect >2 midnight stay. Will likely need to transition to swingbed or SNF once acute medical concerns are resolved. Likely will transition to swingbed tomorrow if things continue. Extracted from: Title:SOAP Note: Simple * Author:MD Margarita Arellano Date:09/02/22 Impression and Plan 87 year old male with Parkinsons disease, metastatic prostate cancer, who presented to our ER on 09/02 with a fall at home, altered mental status. Was found to have pneumonia, with pattern of infiltrate concerning for aspiration # Severe sepsis and acute respiratory failure with hypoxia due to pneumonia - Favor aspiration per appearance on CTA, however, lymphocytopenia is noted on CBC. NEgative COVID, get influenza swab today - Continue unasyn - O2 sats improving at 6L/min now # Hypotension - s/p IVF in the ER and all throughout the night - HOld home antihypertensives - Stop IVF today and monitor urine output # Altered mental status - Present on arrival. CT head wnl on arrival. - Clearing this AM. No focal neuro deficits noted # Weakness - Profound. PT to consult # Pressure ulcer - Discovered by nurses this AM. Wound care to consult # Parkinsons - Continue home Sinemet # Code Status - DNR/DNI per discussion upon arrival # Dispo - Continue inpatient status. I expect >2 midnight stay. Will likely need to transition to swingbed or SNF once acute medical concerns are resolved. Future Scheduled Tests Radiology* US Echo 2D Complete EO 03/27/22 Functional Status 09/05/22 History of Fall in Last 3 Months [facility] 09/04/22 Progress Note-Physician Patient: LEN YAO Age: 87 years Sex: MALE : 1935 Associated Diagnoses: None Author: MD Adan Terrell Subjective He is improving quite a bit. energy is up, he is walking to the bathroom. Improved SOB and cough. Objective VS/Measurements Vital Signs 09/04/2022 7:42 PDT Temperature Temporal Artery 36.6 DegC Temperature Temporal Artery (DegF) 97.88 DegF LOW Peripheral Pulse Rate 56 bpm LOW Pulse Site Pulse Oximetry Respiratory Rate 16 br/min Systolic Blood Pressure 110 mmHg Diastolic Blood Pressure 80 mmHg Mean Arterial Pressure, Cuff 90 mmHg BP Site Left arm SpO2 97 % Oxygen Flow Rate 2 L/min Oxygen Therapy Nasal cannula SpO2 Location Left hand BP Method Manual General: Sleeping, does awake with stimulation. Oriented. Very weak. . Eye: Pupils are equal, round and reactive to light, Extraocular movements are intact. HENT: Normocephalic. Respiratory: Mildly labored respirations, crackles in both lung bases bilatearlly. . Cardiovascular: Normal rate, Regular rhythm, No murmur. Gastrointestinal: Soft, Non-tender, Non-distended, Normal bowel sounds. Results Review Results review Labs (Last four charted values) WBC 4.67 (SEP 04) 4.66 (SEP 03) 6.47 (SEP 02) Hgb L 11.4 (SEP 04) L 10.4 (SEP 03) L 11.8 (SEP 02) Hct L 34.2 (SEP 04) L 31.0 (SEP 03) L 34.6 (SEP 02) Plt L 146 (SEP 04) L 142 (SEP 03) 170 (SEP 02) Na 138 (SEP 04) 136 (SEP 03) L 134 (SEP 02) K 4.0 (SEP 04) 3.8 (SEP 03) 4.3 (SEP 02) CO2 28 (SEP 04) 26 (SEP 03) 23 (SEP 02) Cl 104 (SEP 04) 103 (SEP 03) 104 (SEP 02) Cr 1.09 (SEP 04) 1.12 (SEP 03) 1.07 (SEP 02) BUN H 25 (SEP 04) H 29 (SEP 03) H 35 (SEP 02) Glucose 88 (SEP 04) 94 (SEP 03) H 113 (SEP 02) Ca 9.0 (SEP 04) 9.1 (SEP 03) 9.0 (SEP 02) Impression and Plan 87 year old male with Parkinsons disease, metastatic prostate cancer, who presented to our ER on 09/02 with a fall at home, altered mental status. Was found to have pneumonia, with pattern of infiltrate concerning for aspiration # Severe sepsis and acute respiratory failure with hypoxia due to pneumonia - Favor aspiration per appearance on CTA, however, lymphocytopenia is noted on CBC. Negative COVID, negative influenza - Continue unasyn - Improving O2 sats, down to 2L today. # Hypotension - resolved # Altered mental status - Present on arrival. CT head wnl on arrival. - Resolved. # Weakness - Profound. PT to consult # Pressure ulcer - Wound care treating # Parkinsons - Continue home Sinemet # Code Status - DNR/DNI per discussion upon arrival # Dispo - Continue inpatient status. I expect >2 midnight stay. Will likely need to transition to swingbed or SNF once acute medical concerns are resolved. Likely will transition to swingbed tomorrow if things continue. 09/02/22 ADLs Complete assist 09/02/22 Other exposure to Infectious Disease Non e [...] Start Date: 03/19/22 Status: Ordered Mental Status 09/05/22 Level of Consciousness Alert Problem List Condition Confirmation Course Effective Dates Status Health St [facility] Informant HTN (hypertension) Confirmed Active Hypothyroid Confirmed Active Parkinson disease Confirmed Active Prostate cancer, primary, 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 Confirmed Active Results Laboratory List Name Date Automated Differential 09/05/22 CBC w/ Auto Diff 09/05/22 Comprehensive Metabolic Panel2 09/05/22 Automated Differential 09/04/22 CBC w/ Auto Diff 09/04/22 Comprehensive Metabolic Panel2 09/04/22 Automated Differential 09/03/22 CBC w/ Auto Diff 09/03/22 Comprehensive Metabolic Panel2 09/03/22 Influenza A & B PCR (Influenza A & B PCR (GeneXpert)) 09/02/22 Automated Differential 09/02/22 CBC w/ Auto Diff 09/02/22 Comprehensive Metabolic Panel2 09/02/22 Most recent to oldest [Reference Range]: 1 2 3 4 Creatinine Level [0.55-1.30 mg/dL] 1.03 mg/dL (09/05/22 6:30 AM) 1.09 mg/dL (09/04/22 6:35 AM) 1.12 mg/dL (09/03/22 6:20 AM) 1.07 mg/dL (09/02/22 6:20 AM) AGAP [9-18] 8 *LOW* (09/05/22 6:30 AM) 10 (09/04/22 6:35 AM) 11 (09/03/22 6:20 AM) 11 (09/02/22 6:20 AM) Albumin Level [3.4-5.0 g/dL] 2.6 g/dL *LOW* (09/05/22 6:30 AM) 2.6 g/dL *LOW* (09/04/22 6:35 AM) 2.4 g/dL *LOW* (09/03/22 6:20 AM) 2.6 g/dL *LOW* (09/02/22 6:20 AM) Alk Phos [46-116 U/L] 158 U/L *HI* (09/05/22 6:30 AM) 162 U/L *HI* (09/04/22 6:35 AM) 158 U/L *HI* (09/03/22 6:20 AM) 174 U/L *HI* (09/02/22 6:20 AM) Basophil Auto [0.00-0.20 K/mcL] 0.02 K/mcL (09/05/22 6:30 AM) 0.02 K/mcL (09/04/22 6:35 AM) 0.02 K/mcL (09/03/22 6:20 AM) 0.00 K/mcL (09/02/22 6:20 AM) Bili Total [0.2-1.0 mg/dL] 0.7 mg/dL (09/05/22 6:30 AM) 0.7 mg/dL (09/04/22 6:35 AM) 1.0 mg/dL (09/03/22 6:20 AM) 1.1 mg/dL *HI* (09/02/22 6:20 AM) BUN [7-18 mg/dL] 20 mg/dL *HI* (09/05/22 6:30 AM) 25 mg/dL *HI* (09/04/22 6:35 AM) 29 mg/dL *HI* (09/03/22:20 AM) 35 mg/dL *HI* (09/02/22:20 AM) Chloride Level [98-107 mmol/L] 104 mmol/L (09/05/22 6:30 AM) 104 mmol/L (09/04/22 6:35 AM) 103 mmol/L (09/03/22 6:20 AM) 104 mmol/L (09/02/22 6:20 AM) CO2 [21-32 mmol/L] 30 mmol/L (09/05/22:30 AM) 28 mmol/L (09/04/22:35 AM) 26 mmol/L (09/03/22 6:20 AM) 23 mmol/L (09/02/22 6:20 AM) Eos Auto [0.00-0.45 K/mcL] 0.20 K/mcL (09/05/22 6:30 AM) 0.26 K/mcL (09/04/22 6:35 AM) 0.24 K/mcL (09/03/22 6:20 AM) 0.00 K/mcL (09/02/22 6:20 AM) Glucose Level [74-106 mg/dL] 93 mg/dL (09/05/22 6:30 AM) 88 mg/dL (09/04/22 6:35 AM) 94 mg/dL (09/03/22 6:20 AM) 113 mg/dL *HI* (09/02/22 6:20 AM) Hct [41.0-50.0 %] 32.7 % *LOW* (09/05/22 6:30 AM) 34.2 % *LOW* (09/04/22 6:35 AM) 31.0 % *LOW* (09/03/22 6:20 AM) 34.6 % *LOW* (09/02/22 6:20 AM) Hgb [13.5-18.0 g/dL] 10.9 g/dL *LOW* (09/05/22 6:30 AM) 11.4 g/dL *LOW* (09/04/22 6:35 AM) 10.4 g/dL *LOW* (09/03/22 6:20 AM) 11.8 g/dL *LOW* (09/02/22 6:20 AM) Lymph Auto [1.00-4.80 K/mcL] 0.38 K/mcL *LOW* (09/05/22 6:30 AM) 0.24 K/mcL *LOW* (09/04/22 6:35 AM) 0.28 K/mcL *LOW* (09/03/22 6:20 AM) 0.20 K/mcL *LOW* (09/02/22 6:20 AM) MCH [26.0-34.0 pg] 32.2 pg (09/05/22 6:30 AM) 31.9 pg (09/04/22 6:35 AM) 32.0 pg (09/03/22 6:20 AM) 32.0 pg (09/02/22 6:20 AM) MCHC [31.0-37.0 g/dL] 33.3 g/dL (09/05/22 6:30 AM) 33.3 g/dL (09/04/22 6:35 AM) 33.5 g/dL (09/03/22 6:20 AM) 34.1 g/dL (09/02/22 6:20 AM) MCV [80.0-100.0 fL] 96.5 fL (09/05/22 6:30 AM) 95.8 fL (09/04/22 6:35 AM) 95.4 fL (09/03/22 6:20 AM) 93.8 fL (09/02/22 6:20 AM) [place] Auto [0.00-0.80 K/mcL] 0.46 K/mcL (09/05/22 6:30 AM) 0.40 K/mcL (09/04/22 6:35 AM) 0.31 K/mcL (09/03/22 6:20 AM) 0.23 K/mcL (09/02/22 6:20 AM) MPV [8.0-12.0 fL] 10.0 fL (09/05/22 6:30 AM) 9.7 fL (09/04/22 6:35 AM) 9.8 fL (09/03/22 6:20 AM) 9.8 fL (09/02/22 6:20 AM) Neutro Auto [1.80-7.70 K/mcL] 3.60 K/mcL (09/05/22 6:30 AM) 3.71 K/mcL (09/04/22 6:35 AM) 3.78 K/mcL (09/03/22 6:20 AM) 6.01 K/mcL (09/02/22 6:20 AM) Platelet [150-400] 156 (09/05/22 6:30 AM) 146 *LOW* (09/04/22 6:35 AM) 142 *LOW* (09/03/22 6:20 AM) 170 (09/02/22 6:20 AM) Potassium Level [3.5-5.1 mmol/L] 4.4 mmol/L (09/05/22 6:30 AM) 4.0 mmol/L (09/04/22 6:35 AM) 3.8 mmol/L (09/03/22 6:20 AM) 4.3 mmol/L (09/02/22 6:20 AM) RBC [4.00-5.30 M/uL] 3.39 M/uL *LOW* (09/05/22 6:30 AM) 3.57 M/uL *LOW* (09/04/22 6:35 AM) 3.25 M/uL *LOW* (09/03/22 6:20 AM) 3.69 M/uL *LOW* (09/02/22 6:20 AM) RDW [10.0-15.0 %] 13.9 % (09/05/22 6:30 AM) 14.1 % (09/04/22 6:35 AM) 14.5 % (09/03/22:20 AM) 14.1 % (09/02/22 6:20 AM) Sodium Level [136-145 mmol/L] 138 mmol/L (09/05/22 6:30 AM) 138 mmol/L (09/04/22 6:35 AM) 136 mmol/L (09/03/22 6:20 AM) 134 mmol/L *LOW* (09/02/22 6:20 AM) Protein Total [6.4-8.2 g/dL] 5.1 g/dL *LOW* (09/05/22 6:30 AM) 5.1 g/dL *LOW* (09/04/22 6:35 AM) 4.8 g/dL *LOW* (09/03/22 6:20 AM) 4.8 g/dL *LOW* (09/02/22 6:20 AM) WBC [4.00-10.00 K/mcL] 4.73 K/mcL (09/05/22 6:30 AM) 4.67 K/mcL (09/04/22 6:35 AM) 4.66 K/mcL (09/03/22 6:20 AM) 6.47 K/mcL (09/02/22 6:20 AM) Calcium Level [8.5-10.1 mg/dL] 8.8 mg/dL (09/05/22 6:30 AM) 9.0 mg/dL (09/04/22 6:35 AM) 9.1 mg/dL (09/03/22 6:20 AM) 9.0 mg/dL (09/02/22 6:20 AM) ALT/SGPT [14-63 U/L] 9 U/L *LOW* (09/05/22 6:30 AM) 6 U/L *LOW* (09/04/22 6:35 AM) 6 U/L *LOW* (09/03/22 6:20 AM) 7 U/L *LOW* (09/02/22 6:20 AM) AST/SGOT [15-37 U/L] 11 U/L *LOW* (09/05/22 6:30 AM) 13 U/L *LOW* (09/04/22 6:35 AM) 11 U/L *LOW* (09/03/22 6:20 AM) 16 U/L (09/02/22 6:20 AM) Auto Eos % [0.0-6.0 %] 4.2 % (09/05/22 6:30 AM) 5.6 % (09/04/22 6:35 AM) 5.2 % (09/03/22 6:20 AM) 0.0 % (09/02/22 6:20 AM) Auto Lymph % [20.0-45.0 %] 8.0 % *LOW* (09/05/22 6:30 AM) 5.1 % *LOW* (09/04/22 6:35 AM) 6.0 % *LOW* (09/03/22 6:20 AM) 3.1 % *LOW* (09/02/22 6:20 AM) Auto Neut % [36.0-70.0 %] 76.2 % *HI* (09/05/22 6:30 AM) 79.4 % *HI* (09/04/22 6:35 AM) 81.1 % *HI* (09/03/22 6:20 AM) 92.8 % *HI* (09/02/22 6:20 AM) Auto Baso % [0.0-2.0 %] 0.4 % (09/05/22 6:30 AM) 0.4 % (09/04/22 6:35 AM) 0.4 % (09/03/22 6:20 AM) 0.0 % (09/02/22 6:20 AM) Auto [place] % [1.0-10.0 %] 9.7 % (09/05/22 6:30 AM) 8.6 % (09/04/22 6:35 AM) 6.7 % (09/03/22 6:20 AM) 3.6 % (09/02/22 6:20 AM) BUN/Creat Ratio [7-18] 19 *HI* (09/05/22 6:30 AM) 23 *HI* (09/04/22 6:35 AM) 26 *HI* (09/03/22 6:20 AM) 33 *HI* (09/02/22 6:20 AM) A/G Ratio [1.0-2.2] 1.0 (09/05/22 6:30 AM) 1.0 (09/04/22 6:35 AM) 1.0 (09/03/22 6:20 AM) 1.2 (09/02/22 6:20 AM) Influenza A [Negative] Negative (09/02/22 8:16 AM) Influenza B [Negative] Negative (09/02/22 8:16 AM) eGFR AA [>=60] 87 (09/05/22 6:30 AM) 82 (09/04/22 6:35 AM) 79 (09/03/22 6:20 AM) 84 (09/02/22 6:20 AM) eGFR Non AA [>=60] 72 (09/05/22 6:30 AM) 68 (09/04/22 6:35 AM) 66 (09/03/22 6:20 AM) 69 (09/02/22 6:20 AM) Vital Signs Most recent to oldest [Reference Range]: 1 2 3 Weight 77 kg (09/02/22 12:30 AM) Scale Type Bed (09/02/22 12:30 AM) Temperature Temporal Artery [36.3-37.8 DegC] 36.9 DegC (09/05/22 4:00 PM) 36.0 DegC *LOW* (09/05/22 11:30 AM) 36.0 DegC *LOW* (09/05/22 7:15 AM) Temperature Temporal Artery (DegF) [97.9-100.6 DegF] 98.42 DegF (09/05/22 4:00 PM) 96.8 DegF *LOW* (09/05/22 11:30 AM) 96.8 DegF *LOW* (09/05/22 7:15 AM) Peripheral Pulse Rate [60-100 bpm] 63 bpm (09/05/22 4:00 PM) 61 bpm (09/05/22 11:30 AM) 60 bpm (09/05/22 7:15 AM) Pulse Site Pulse Oximetry (09/05/22 4:00 PM) Pulse Oximetry (09/05/22 11:30 AM) Pulse Oximetry (09/05/22 7:15 AM) Respiratory Rate [14-20 br/min] 18 br/min (09/05/22 4:00 PM) 18 br/min (09/05/22 11:30 AM) 18 br/min (09/05/22 7:15 AM) Blood Pressure [90-140/60-90 mmHg] 165/74mmHg *HI* (09/05/22 4:00 PM) 128/62mmHg (09/05/22 11:30 AM) 132/68mmHg (09/05/22 7:15 AM) Mean Arterial Pressure, Cuff [65-100 mmHg] 90 mmHg (09/05/22 4:39 AM) 83 mmHg (09/05/22 12:06 AM) 90 mmHg (09/04/22 7:50 PM) BP Site Right arm (09/05/22 4:00 PM) Right arm (09/05/22 11:30 AM) Right arm (09/05/22 7:15 AM) SpO2 [92-100 %] 97 % (09/05/22 4:00 PM) 96 % (09/05/22 11:30 AM) 97 % (09/05/22 7:15 AM) Oxygen Flow Rate 1 L/min (09/05/22 4:00 PM) 1 L/min (09/05/22 11:30 AM) 2 L/min (09/05/22 7:50 AM) Oxygen Therapy Nasal cannula (09/05/22 4:00 PM) Nasal cannula (09/05/22 11:30 AM) Nasal cannula (09/05/22 7:50 AM) SpO2 Location Forehead (09/05/22 4:00 PM) Forehead (09/05/22 11:30 AM) Forehead (09/05/22 7:15 AM) BP Method Manual (09/05/22 4:00 PM) Manual (09/05/22 11:30 AM) Manual (09/05/22 7:15 AM) Social History Social History Type Response Tobacco Never tobacco user T obacco Use:. Sex Goals Len will dc to [facility]. His son Sheng will transport. 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 status. Sherry not available, message left that Len will be planning to transfer to [facility] next week [Electronically Signed on: 09/04/2022 10:59 PDT] Estephania Hagan RN [Verified on: 09/04/2022 10:59 PDT] Estephania Hagan RN History and physical note * DO Jazmine Oreilly: PERFORM, MODIFY Event Display: History and Physical Authored Date: LEN YAO :1935 Age:87 years Sex:MALE Visit Date:09/01/2022 Primary Care Physician: Jason Kim ED NOTE TO BE USED H & P. CM Basic Information No qualifying data available. History Of Present Illness: 87-year-old male presenting [facility]valuation [facility] sustaining a fall at home.Past medical history [...] negative for any causes for dizziness or syncope.Chestx-ray withslight congestion,follow-upCT chestwithsigns of aspiration pneumoniaas a possible cause. 2.Head [id number] - CT head negative for acute bleed 3.Lung massR91.8 - Opacity noted on CXR. Patient has a history of prostatewith pastmention ofmetastasis tothe bone. - CT chest ordered to follow-up, described the opacity as characteristic of aspiration pneumonia. 4.UjkyyofzrmvJ33.9 - 2L NS given in the ED,started onNS at 100.This is likely related to hissepsis andsource control was started withampicillin/sulbactam 5.Shortness of wjcqdgI49.02 - On RA at home but requiring initial 10L non-rebreather, then down to 5L NC in the ER. Still only saturating in the low 90's. 6.Aspiration ufmednvwjB36.0 - As above Dispo: Admit to hospital floor for aspiration pneumonia to be monitored on obs for IV antibiotics, fluids. Patient is DNR/DNI but would like to continue treatment for his pneumonia, will visitcomfort care discussion if indicated during his hospitalization. This note can serve as both the EDNote and Admission H&P. Unspecified place in unspecified non-institutional (private) residence as the place of occurrenceof the external [id number] Orders: ampicillin-sulbactam, 3 gm = 1 EA, REC Injection, IV Piggyback, q6hr (int), Medication Indication Pneumonia- Aspiration, Start date 09/01/22 22:00:00 PDT, 100 mL/hr, Infuse over 60 minute(s), 09/01/22 21:39:00 PDT Normal Saline 1,000 mL, 1,000 mL, IV, Routine, Start date 09/01/22 22:34:00 PDT, 100 mL/hr, 10,hr, Total volume (mL): 1,000, 72 kg, 1.92, [...] 09/01/22 19:17:00 PDT Routine, hypoxia, opacification on lungxray, Allow Modification Per Radiologist, Transport Mode: Wheelchair, [...] oral tablet)1 tab(s) Oral As Directed. 2 tabsQAM, 2 tabs QPM and 3 tabs in afternoon. carvedilol (carvedilol 3.125 mg oral tablet)1 tab(s) Oral At bedtime. citalopram (citalopram 20 mg oral tablet)1 tab(s) Oral every day. furosemide5 Milligram Oral 2 times a day. hydrochlorothiazide-triamterene (hctz-triamterene 25-37.5mg)1 tab(s) Oral every day. levothyroxine (levothyroxine 75 mcg (0.075 mg) oral tablet)1 tab(s) Oral every day. potassium [id number] Milliequivalent Oral 2 times a day. pramipexole [...] 09/01/22 18:21 0.17 Low 08/24/22 0.45 Low [place] Auto 09/01/22 18:21 0.17 08/24/22 0.56 Eos Auto 09/01/22 18:21 0.02 08/24/22 0.06 Basophil Auto 09/01/22 18:21 0.01 08/24/22 0.01 Auto Neut % 09/01/22 18:21 94.6 High 08/24/22 75.3 High Auto Lymph % 09/01/22 18:21 2.2 Low 08/24/22 8.8 Low Auto [place] % 09/01/22 18:21 2.2 08/24/22 11.0 High Auto Eos % 09/01/22 18:21 0.3 08/24/22 1.2 Auto Baso % 09/01/22 18:21 0.1 08/24/22 0.2 Signature Line [Electronically Signed on: 09/01/2022 23:52 PDT] DO Jazmine Oreilly [Verified on: 09/01/2022 23:52 PDT] DO Jazmine Oreilly Document Type: ED Note - Physician Document Date: September 01, 2022 19:48 PDT Document Status: Auth (Verified) Document Title/Subject: ED Provider Note Performed By/Author: DO Jazmine Oreilly on September 01, 2022 19:48 PDT Verified By: DO Jazmine Oreilly on September 01, 2022 23:52 PDT Encounter Info: [id number], [facility], Emergency, 09/01/2022 - 09/01/2022 [Electronically Signed on: 09/03/2022 19:30 PDT] DO Jazmine Oreilly [Verified on: 09/03/2022 19:30 PDT] DO Jazmine Oreilly Note * MD Terrell Arellano: PERFORM, SIGN, VERIFY Event Display: Progress Note-Physician Authored Date: Patient: LEN YAO Age: 87 years Sex: MALE : 1935 Associated Diagnoses: None Author: MD Terrell Arellano Subjective He is improving quite a bit. energy is up, he is walking to the bathroom. Improved SOB and cough. Objective VS/Measurements Vital Signs 09/04/2022 7:42 PDT Temperature Temporal Artery 36.6 DegC Temperature Temporal Artery (DegF) 97.88 DegF LOW Peripheral Pulse Rate 56 bpm LOW Pulse Site Pulse Oximetry Respiratory Rate 16 br/min Systolic Blood Pressure 110 mmHg Diastolic Blood Pressure 80 mmHg Mean Arterial Pressure, Cuff 90 mmHg BP Site Left arm SpO2 97 % Oxygen Flow Rate 2 L/min Oxygen Therapy Nasal cannula SpO2 Location Left hand BP Method Manual General: Sleeping, does awake with stimulation. Oriented. Very weak. . Eye: Pupils are equal, round and reactive to light, Extraocular movements are intact. HENT: Normocephalic. Respiratory: Mildly labored respirations, crackles in both lung bases bilatearlly. . Cardiovascular: Normal rate, Regular rhythm, No murmur. Gastrointestinal: Soft, Non-tender, Non-distended, Normal bowel sounds. Results Review Results review Labs (Last four charted values) WBC 4.67 (SEP 04) 4.66 (SEP 03) 6.47 (SEP 02) Hgb L 11.4 (SEP 04) L 10.4 (SEP 03) L 11.8 (SEP 02) Hct L 34.2 (SEP 04) L 31.0 (SEP 03) L 34.6 (SEP 02) Plt L 146 (SEP 04) L 142 (SEP 03) 170 (SEP 02) Na 138 (SEP 04) 136 (SEP 03) L 134 (SEP 02) K 4.0 (SEP 04) 3.8 (SEP 03) 4.3 (SEP 02) CO2 28 (SEP 04) 26 (SEP 03) 23 (SEP 02) Cl 104 (SEP 04) 103 (SEP 03) 104 (SEP 02) Cr 1.09 (SEP 04) 1.12 (SEP 03) 1.07 (SEP 02) BUN H 25 (SEP 04) H 29 (SEP 03) H 35 (SEP 02) Glucose 88 (SEP 04) 94 (SEP 03) H 113 (SEP 02) Ca 9.0 (SEP 04) 9.1 (SEP 03) 9.0 (SEP 02) Impression and Plan 87 year old male with Parkinsons disease, metastatic prostate cancer, who presented to our ER on 09/02 with a fall at home, altered mental status. Was found to have pneumonia, with pattern of infiltrate concerning for aspiration # Severe sepsis and acute respiratory failure with hypoxia due to pneumonia - Favor aspiration per appearance on CTA, however, lymphocytopenia is noted on CBC. Negative COVID,negative influenza - Continue unasyn - Improving O2 sats, down to 2L today. # Hypotension - resolved # Altered mental status - Present on arrival. CT head wnl on arrival. - Resolved. # Weakness - Profound. PT to consult # Pressure ulcer - Wound care treating # Parkinsons - Continue home Sinemet # Code Status - DNR/DNI per discussion upon arrival # Dispo - Continue inpatient status. I expect >2 midnight stay. Will likely need to transition to swingbed or SNF once acute medical concerns are resolved. Likely will transition to swingbed tomorrow if things continue. [Electronically Signed on: 09/04/2022 08:21 PDT] MD Terrell Arellano [Verified on: 09/04/2022 08:21 PDT] MD Terrell Arellano * DO Jazmine Oreilly: MODIFY, PERFORM, MODIFY, MODIFY Event Display: Progress Note-Physician Authored Date: LEN YAO : 1935 Age: 87 years Sex: MALE Visit Date: 09/01/2022 Primary Care Physician: Jason Kim Anticipated Discharge Date 09/06. Subjective Overnight events.He has been maintaining appropriate pressures, is down to4 L nasal cannula.Has been working withphysical therapy, does have some sacral discomfort and a smallsacral ulcer was notedby his nurse, wound care has been ordered buthas not yet started following. Review of Systems As above. Objective Vitals & Measurements T:36.4 C (Temporal Artery) TMIN:35.7 C (Temporal Artery) TMAX:36.4 C (Temporal Artery) HR:63(Peripheral) RR:16 BP:104/58 SpO2:94% O2 Flow Rate:4 [id number]:Nasal cannula Physical Exam General: Sleeping comfortably on 4L CV: Soft heart sounds but regular rate and rhythm Pulm: Symmetric expansion, clear bilaterally Ext: No peripheral edema Lab Results Reviewed,white blood cell countdowntrending.Creatinine stable, appropriateurine output. Assessment/Plan 87 year old male with Parkinsons disease, metastatic prostate cancer, who presented to our ER on 09/02 with a fall at home, altered mental status. Was found to have pneumonia, with pattern of infiltrate concerning for aspiration. # Severe sepsis and acute respiratory failure with hypoxia due to pneumonia - Favor aspiration per appearance on CTA, however, lymphocytopenia is noted on CBC. Negative COVID,get influenza swab today - Continue unasyn, day 2/5 - O2 sats improving at 4L/min now, goal of 2Lprior to d/c # Weakness - Profound. PT to consult # Pressure ulcer - Discovered by nurses this AM. Wound care to consult #Constipation - Senna-Colace started Resolved: # Hypotension: S/p IVF in the ER, hold home antihypertensives as needed,continuedmonitoring ofurine output # Altered mental status: Present on arrival. CT head wnl. Improved by evaluationin the ED.No focal neuro deficits noted. Chronic: # Parkinsons: Continue home Sinemet General Management: #Code Status: DNR/DNI per discussion upon arrival # Diet: Dysphagia #IV: 100NS #O2: 4L NC #DVT Prophylaxis: Lovenox, PT # Dispo - Continue inpatient status. I expect >2 midnight stay. Will likely need to transition to swingbed or SNF once acute medical concerns are resolved. [Electronically Signed on: 09/03/2022 08:48 PDT] DO Jazmine Oreilly [Verified on: 09/03/2022 08:48 PDT] DO Jazmine Oreilly * MD Terrell Arellano: PERFORM, SIGN, VERIFY Event Display: Progress Note-Physician Authored Date: Patient: LEN YAO Age: 87 years Sex: MALE : 1935 Associated Diagnoses: None Author: MD Terrell Arellano Subjective Patient is tried today, does wake up with stimulation. More oriiented and alert. O2 sats improving - down to 6L O2. No other compliants. Objective VS/Measurements Vital Signs 09/02/2022 7:35 PDT Temperature Temporal Artery 36.6 DegC Temperature Temporal Artery (DegF) 97.88 DegF LOW Systolic Blood Pressure 110 mmHg Diastolic Blood Pressure 55 mmHg LOW SpO2 90 % LOW Oxygen Flow Rate 6 L/min Oxygen Therapy Nasal cannula SpO2 Location Forehead General: Sleeping, does awake with stimulation. Oriented. Very weak. . Eye: Pupils are equal, round and reactive to light, Extraocular movements are intact. HENT: Normocephalic. Respiratory: Mildly labored respirations, crackles in both lung bases bilatearlly. Too weak to sit up. Cardiovascular: Normal rate, Regular rhythm, No murmur. Gastrointestinal: Soft, Non-tender, Non-distended, Normal bowel sounds. Results Review Results review Labs (Last four charted values) WBC 4.66 (SEP 03) 6.47 (SEP 02) Hgb L 10.4 (SEP 03) L 11.8 (SEP 02) Hct L 31.0 (SEP 03) L 34.6 (SEP 02) Plt L 142 (SEP 03) 170 (SEP 02) Na 136 (SEP 03) L 134 (SEP 02) K 3.8 (SEP 03) 4.3 (SEP 02) CO2 26 (SEP 03) 23 (SEP 02) Cl 103 (SEP 03) 104 (SEP 02) Cr 1.12 (SEP 03) 1.07 (SEP 02) BUN H 29 (SEP 03) H 35 (SEP 02) Glucose 94 (SEP 03) H 113 (SEP 02) Ca 9.1 (SEP 03) 9.0 (SEP 02) Impression and Plan 87 year old male with Parkinsons disease, metastatic prostate cancer, who presented to our ER on 09/02 with a fall at home, altered mental status. Was found to have pneumonia, with pattern of infiltrate concerning for aspiration # Severe sepsis and acute respiratory failure with hypoxia due to pneumonia - Favor aspiration per appearance on CTA, however, lymphocytopenia is noted on CBC. NEgative COVID,get influenza swab today - Continue unasyn - O2 sats improving at 6L/min now # Hypotension - s/p IVF in the ER and all throughout the night - HOld home antihypertensives - Stop IVF today and monitor urine output # Altered mental status - Present on arrival. CT head wnl on arrival. - Clearing this AM. No focal neuro deficits noted # Weakness - Profound. PT to consult # Pressure ulcer - Discovered by nurses this AM. Wound care to consult # Parkinsons - Continue home Sinemet # Code Status - DNR/DNI per discussion upon arrival # Dispo - Continue inpatient status. I expect >2 midnight stay. Will likely need to transition to swingbed or SNF once acute medical concerns are resolved. [Electronically Signed on: 09/03/2022 07:53 PDT] MD Terrell Arellano [Verified on: 09/03/2022 07:53 PDT] MD Terrell Arellano Patient Care team information Personnel Name: Jason Kim Address: Address: [facility] [address] [place] [address], [place] [address]- [place]
--- OUTSIDE RECORDS SUMMARY | 2022-11-21 19:19 | External Medical Summary | Continuity of Care Document ---
Author Name Unknown Organization [facility] Address [address] [place] [address] [facility] [address] Care Team Providers Care Immunology Teacher Name Role Phone Terrell Arellano Primary Care Physician [phone] Carmela Hester Unavailable Unavailable Willa Ashton Unavailable Unavailabl e Encounter [facility]_ID Date(s): 10/13/22 - 10/13/22 [facility] [address] [place] [address] [facility] [address]- [place] Encounter Diagnosis Metastatic adenocarcinoma to prostate(Discharge Diagnosis) - 10/08/22 Discharge Disposition: Home Attending Physician: MD Terrell [...] 09/05/22 18:23:00 PDT, Height/Length Dosing, 72, kg, :30:00 PDT, Weight Dosing Start Date: 09/08/22 Stop [...] # 210 tab(s), 11 Refill(s), Pharmacy: [facility] 1 tab(s) PO As Directed,Instr:2 tab [...] Pharmacy: [facility] 1 tab(s) PO Daily,Instr:[facility]O, 185, cm, [...] # 1 EA, 11 Refill(s), Pharmacy: [facility] Mix wit... Start Date: 10/01/22 Status: Ordered levothyroxine 75 mcg (0.075 mg) oral tablet 1 tab(s) ( 75 mcg ), PO, Daily, # 30 tab(s), 11 Refill(s), Pharmacy: [facility] 1 tab(s) PO Daily, 185, cm, [...] # 30 tab(s), 2 Refill(s), Pharmacy: [facility] 1 tab(s) PO Once a day [...] site Confirmed Active Chest congestion Confirmed Active Vital Signs Most recent to oldest [Reference Range]: 1 Temperature Temporal Artery [36.3-37.8 D egC] 36.2 DegC *LOW* (10/13/22 2:52 PM) Peripheral Pulse Rate [60-100 bpm] 70 bp m (10/13/22 2:52 PM) Blood Pressure [90-140/60-90 mmHg] 131/7 4mmHg (10/13/22 2:52 PM) SpO2 [92-100 %] 90 % *LOW* (10/13/22 2:52 PM) Oxygen Therapy Room air (10/13/22 2:52 PM) Social History Social History Type Response Tobacco Never tobacco user T obacco Use:. Sex Goals Len will dc to [facility]. His son Sheng will transport. Start Date:03/26/22 End Date:03/26/22 Status:Met Progression:Not Met Patient Care team information Personnel Name: MD Terrell Arellano Address: Address: [address] [place] [address], [place] [phone]- [place] Name: Carmela Hester Name: Willa Ashton
--- OUTSIDE RECORDS SUMMARY | 2022-11-21 19:19 | External Medical Summary | Continuity of Care Document ---
Author Name Unknown Organization [facility] Address [address] [facility] [address] [address] Care Team Providers Care Charge Hand Name Role Phone Terrell Arellano Primary Care Physician [phone] Carmela Hester Unavailable Unavailable Willa Ashton Unavailable Unavailabl e Encounter [facility]_ID Date(s): 10/21/22 - 10/21/22 [facility] [address] [facility] [address] [address]- [place] Encounter Diagnosis Secondary malignant neoplasm of bone(Discharge Diagnosis) - 10/21/22 Discharge Disposition: Home Attending Physician: MD Terrell [...] # 30 tab(s), 2 Refill(s), Pharmacy: [facility] 1 tab(s) PO Once a day (at [...] Confirmed Active Results Laboratory List Name Date PSA, Total 10/21/22 Most recent to oldest [Reference Range]: 1 PSA Total [0.00-4.00 ng/mL] 101.89 ng/mL *HI* (10/21/22 11:15 AM) Social History Social History Type Response Tobacco Never tobacco user T obacco Use:. Sex Goals Len will dc to [facility]. His son Sheng will transport. Start Date:03/26/22 End Date:03/26/22 Status:Met Progression:Not Met Patient Care team information Personnel Name: MD Terrell Arellano Address: Address: [address] [place] [address], [place] [address]- [place] Name: Carmela Hester Name: Willa Ashton
--- OUTSIDE RECORDS SUMMARY | 2022-11-21 19:19 | External Medical Summary | Continuity of Care Document ---
Author Name Unknown Organization [facility] Address [address] [place] [facility] [place] [address] Care Team Providers Care Auto Driver Name Role Phone Jason Kim Primary Care Physician Encounter [facility]_ID Date(s): 03/19/22 - 03/19/22 [facility] [address] [place] [facility] [address]- [place] Encounter Diagnosis UTI (urinary tract infection)(Discharge Diagnosis) - 03/19/22 Generalized weakness(Discharge Diagnosis) - 03/19/22 Prostate cancer, primary, 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(Discharge Diagnosis) - 03/19/22 Heart failure(Discharge Diagnosis) - 03/19/22 Discharge Disposition: Admitted as Inpatient Attending Physician: Liset Barnes MD Admitting Physician: Liset Barnes MD Allergies, Adverse Reactions, Alerts No Known Medication Allergies Assessment and Plan Extracted from: Title:ED Provider Note Author:Penelope Miles Date:03/19/22 Assessment/Plan 1.UTI (urinary tract infection)N39.0 Send urine for culture Ceftriaxone 1g daily. 2.Prostate cancer, primary, 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C61 Generalized weakness may be related to acute decompensation. Pt. reports known mets in the spine. 3.Heart uizixynS71.9 BNP is elevated. Pt. initially received 500 LR IV for AKIwill monitor overnight. Resume home Triamterene/HCTZ. 4.Generalized krochmkjA63.1 Plan for PT to work with patient in hospital. Will involve DC senior materials planner in care. Orders: cefTRIAXone, 1 gm = 10 mL, REC Injection, IV Push, Daily, Antibiotic Indication Urinary Tract Infection, Start date 03/19/22 17:26:00 PDT, 120, mL/hr, Infuse over 5 minute(s), 03/19/22 17:26:00 PDT ECG, 03/19/22 16:15:00 PDT, Weakness, Stop Date 03/19/22 16:15:00 PDT, No IV Start, 03/19/22 15:00:00 PDT, 03/19/22 15:00:00 PDT Urine Culture PRL, Urine, 03/19/22 17:45:00 PDT, Routine collect, Stop date 03/19/22 17:46:00 PDT, Lab Collect, Clean Catch XR Chest 1 View, 03/19/22 16:16:00 PDT Stat, cough, Allow Modification Per Radiologist, Transport Mode: Portable, 03/19/22 16:16:00 PDT The patient presents to the ER with generalized weakness and 2 falls this morning.The patientunderwent labswhich showa mild bump in his BUN and creatinine.Initiallywas concern foracute kidney injury and gave 500 mL bolus of LR.The patient's labs show an elevated BNPof 2695.This may represent someCHFfluid overload.The patient has a normal white blood cell count and is not profoundly anemic.The patient's urine shows a trace amount of leukocytes.The patient westarted onceftriaxone for possible UTIwe will send the patient's urine for culture.The patient's EKG does have some T wave inversionsin leadsV4 through V6.Repeat EKGis fairly similar.The patient's troponinand repeat troponin remained negative.The patient's chest x-ray does not show any signs of obvious pneumonia by my read.The patient wasstood up at the bedsideto assess ability to go home.The patient had significant difficulty in trying to move his left foot.They report that he has stairs into his house.His daughter is currently there with him but does not live with himall the time.It was felt that this would be unsafe to send the patient home. Iwill admit the patient forobservation for UTI, CHF.The generalized weakness of the patient is havingmay beanacute decompensation of his metastatic prostate cancer.I will ask physical therapy to see him while in the hospital andhave our discharge plannerinvolved in his care. Follow Up No qualifying data available Diagnostic Tests Pending * Urine Culture PRL 03/19/22 Functional Status 03/19/22 Family Member Travel History No recent t [...] Start Date: 03/19/22 Status: Ordered Mental Status 03/19/22 Level of Consciousness Alert Problem List Condition Effective Dates Status Health Status Inform ant HTN (hypertension)(Confirmed) Active Hypothyroid(Confirmed) Active Parkinson disease(Confirmed) Active Prostate cancer, primary, wi th metastasis from prostate to other site(Confirmed) Active Results Laboratory List Name Date NT Pro-BNP (Pro-BNP) 03/19/22 SARS-CoV-2 (COVID-19) PCR (GeneXpert) Troponin I High Sensitivity 03/19/22 Automated Differential 03/19/22 CBC w/ Auto Diff 03/19/22 Comprehensive Metabolic Panel2 (CMP2) Troponin I High Sensitivity 03/19/22 UA Routine 03/19/22 Most recent to oldest [Reference Range]: 1 2 Creatinine Level [0.55-1.30 mg/dL] 1.35 mg/dL *HI* (03/19/22 12:45 PM) UA Bacteria [None] Few (03/19/22 12:36 PM) UA Blood [Negative] Negative (03/19/22 12:36 PM) UA Color [Yellow] Yellow (03/19/22 12:36 PM) UA Glucose [Negative] Negative (03/19/22 12:36 PM) UA Ketones [Negative] Trace *ABN* (03/19/22 12:36 PM) UA Nitrite [Negative] Negative (03/19/22 12:36 PM) UA Protein [Negative] Negative (03/19/22 12:36 PM) UA Urobilinogen [0.2-1.0] 0.2 (03/19/22 12:36 PM) UA Yeast [None] None (03/19/22 12:36 PM) AGAP [9-18] 12 (03/19/22 12:45 PM) UA pH [4.0-8.0] 5.0 (03/19/22 12:36 PM) Albumin Level [3.4-5.0 g/dL] 3.6 g/dL (03/19/22 12:45 PM) Alk Phos [46-116 U/L] 121 U/L *HI* (03/19/22 12:45 PM) Basophil Auto [0.00-0.20 K/mcL] 0.01 K/m cL (03/19/22 12:45 PM) Bili Total [0.2-1.0 mg/dL] 1.0 mg/dL (03/19/22 12:45 PM) BUN [7-18 mg/dL] 38 mg/dL *HI* (03/19/22 12:45 PM) Chloride Level [98-107 mmol/L] 103 mmol/ L (03/19/22 12:45 PM) CO2 [21-32 mmol/L] 26 mmol/L (03/19/22 12:45 PM) Eos Auto [0.00-0.45 K/mcL] 0.04 K/mcL (03/19/22 12:45 PM) Glucose Level [74-106 mg/dL] 118 mg/dL *HI* (03/19/22 12:45 PM) Hct [41.0-50.0 %] 39.2 % *LOW* (03/19/22 12:45 PM) Hgb [13.5-18.0 g/dL] 13.2 g/dL *LOW* (03/19/22 12:45 PM) Lymph Auto [1.00-4.80 K/mcL] 0.35 K/mcL *LOW* (03/19/22 12:45 PM) MCH [26.0-34.0 pg] 32.2 pg (03/19/22 12:45 PM) MCHC [31.0-37.0 g/dL] 33.7 g/dL (03/19/22 12:45 PM) MCV [80.0-100.0 fL] 95.6 fL (03/19/22 12:45 PM) [place] Auto [0.00-0.80 K/mcL] 0.99 K/mcL *HI* (03/19/22 12:45 PM) MPV [8.0-12.0 fL] 9.3 fL (03/19/22 12:45 PM) Neutro Auto [1.80-7.70 K/mcL] 8.44 K/mcL *HI* (03/19/22 12:45 PM) Platelet 158 *NA* (03/19/22 12:45 PM) Potassium Level [3.5-5.1 mmol/L] 4.6 mmo l/L (03/19/22 12:45 PM) RBC [4.00-5.30 M/uL] 4.10 M/uL (03/19/22 12:45 PM) RDW [10.0-15.0 %] 13.3 % (03/19/22 12:45 PM) Sodium Level [136-145 mmol/L] 136 mmol/L (03/19/22 12:45 PM) Protein Total [6.4-8.2 g/dL] 6.1 g/dL *LOW* (03/19/22 1245 PM) WBC [4.00-10.00 K/mcL] 9.94 K/mcL (03/19/22 12:45 PM) Calcium Level [8.5-10.1 mg/dL] 9.5 mg/dL (03/19/22 12:45 PM) ALT/SGPT [14-63 U/L] 19 U/L (03/19/22 12:45 PM) AST/SGOT [15-37 U/L] 20 U/L (03/19/22 12:45 PM) Auto Eos % [0.0-6.0 %] 0.4 % (03/19/22 12:45 PM) Auto Lymph % [20.0-45.0 %] 3.5 % *LOW* (03/19/22 12:45 PM) Auto Neut % [36.0-70.0 %] 84.9 % *HI* (03/19/22 12:45 PM) UA Clarity [Clear] Clear (03/19/22 12:36 PM) Auto Baso % [0.0-2.0 %] 0.1 % (03/19/22 12:45 PM) Auto [place] % [1.0-10.0 %] 10.0 % (03/19/22 12:45 PM) BUN/Creat Ratio [7-18] 28 *HI* (03/19/22 12:45 PM) A/G Ratio [1.0-2.2] 1.4 (03/19/22 12:45 PM) Troponin I High Sensitivity [0.0-50.0 pg/mL] 26.6 pg/mL (03/19/22 4:30 PM) 24.3 pg/mL (03/19/22 12:45 PM) eGFR AA [>=60] 64 (03/19/22 12:45 PM) eGFR Non AA [>=60] 53 *LOW* (03/19/22 12:45 PM) SARS-CoV-2 (COVID-19) PCR (G eneXpert) [Negative] Negative (03/19/22 4:30 PM) NT Pro-BNP [0-450 pg/mL] 2695 pg/mL *HI* (03/19/22 4:30 PM) Employed in healthcare? No *NA* (03/19/22 4:30 PM) Symptomatic as defined by CDC? No *NA* (03/19/22 4:30 PM) Hospitalized due to COVID-19? No *NA* (03/19/22 4:30 PM) In ICU? No *NA* (03/19/22 4:30 PM) Group care resident? No *NA* (03/19/22 4:30 PM) status? Not *NA* (03/19/22 4:30 PM) Amorphous Sediments [None] Trace (03/19/22 12:36 PM) Urine Casts [None] None (03/19/22 12:36 PM) Urine Mucous [None] None (03/19/22 12:36 PM) Urine Epithelials 2 *NA* (03/19/22 12:36 PM) Microscopic RBC [None] 0-1 (03/19/22 12:36 PM) Microscopic WBC [None] 1-3 (03/19/22 12:36 PM) Urine Crystals [None] None (03/19/22 12:36 PM) UA Leukocytes [Negative] Trace *ABN* (03/19/22 12:36 PM) UA Specific [place] [1.005-1.035] 1.025 (03/19/22 12:36 PM) UA Bilirubin [Negative] Negative (03/19/22 12:36 PM) Radiology Reports * Exam Date Time Procedure Performing Provider Status 03/19/22 12:19 PM XR Hip 2-3 Views Rt w/ Pelvis Rodney Isbell; Auth (Verified) Notes: (XR Hip 2-3 Views Rt w/ Pelvis) Reason For Exam: GLF, right hip pain Report Name: ROMINA YAO Date of 1935 : Study: XR HIP 2-3 VIEWS RT W/ PELVIS Facility: [facility] Physician: CAT LIZAMA [facility] Date of 03/19/2022 11:54:06 AM Service: CLINICAL: Ground level fall, right hip pain. TECHNIQUE: Frontal projection of the pelvis and two views of the right hip. FINDINGS: Right hip prosthesis is present. No evidence of loosening or failure. No fracture identified. Pubicrami appear intact. Sacroiliac joints appear intact. IMPRESSION: No acute abnormality identified of pelvis or right hip. DA/tml Dd: 03/19/2022 1:19 PM Dt: 03/19/2022 1:53 PM Dictated by Destinee Madsen MD Signed by DESTINEE MADSEN at 03/19/2022 7:17:48 PM Final Signed (Electronic Signature): Destinee Madsen 03/19/22 4:31 pm Technologist: MARQUITA Vital Signs Most recent to oldest [Reference Range]: 1 2 3 Height 185.000 cm (03/19/22 11:45 AM) Height/Length Dosing 185.000 cm (03/19/22 2:08 PM) Weight 81.190 kg (03/19/22 11:45 AM) Weight Dosing 81.190 kg (03/19/22 2:08 PM) Temperature Temporal [36.3-37.8 DegC] 36.4 DegC (03/19/22 11:45 AM) Peripheral Pulse Rate [60-100 bpm] 84 bpm (03/19/22 5:00 PM) 71 bpm (03/19/22 3:55 PM) 68 bpm (03/19/22 2:57 PM) Respiratory Rate [14-20 br/min] 18 br/min (03/19/22 5:00 PM) 18 br/min (03/19/22 3:55 PM) 18 br/min (03/19/22 2:57 PM) Blood Pressure [90-140/60-90 mmHg] 108/66mmHg (03/19/22 5:00 PM) 118/65mmHg (03/19/22 3:55 PM) 116/62mmHg (03/19/22 2:57 PM) Mean Arterial Pressure, Cuff [65-100 mmHg] 80 mmHg (03/19/22 5:00 PM) 83 mmHg (03/19/22 3:55 PM) 80 mmHg (03/19/22 2:57 PM) SpO2 [92-100 %] 94 % (03/19/22 5:00 PM) 93 % (03/19/22 3:55 PM) 94 % (03/19/22 2:57 PM) Oxygen Therapy Room air (03/19/22 5:00 PM) Room air (03/19/22 3:55 PM) Room air (03/19/22 2:57 PM) Social History Social History Type Response Tobacco Never tobacco user T obacco Use:. Sex Note * Destinee Madsen: VERIFY Destinee Madsen: VERIFY Event Display: Radiology Report Name: ROMINA YAO Date of 1935 : Study: XR HIP 2-3 VIEWS RT W/ PELVIS Facility: [facility] Physician: CAT LIZAMA Date of 03/19/2022 11:54:06 AM Service: CLINICAL: Ground level fall, right hip pain. TECHNIQUE: Frontal projection of the pelvis and two views of the right hip. FINDINGS: Right hip prosthesis is present. No evidence of loosening or failure. No fracture identified. Pubicrami appear intact. Sacroiliac joints appear intact. IMPRESSION: No acute abnormality identified of pelvis or right hip. DA/tml Dd: 03/19/2022 1:19 PM Dt: 03/19/2022 1:53 PM Dictated by Destinee Madsen MD Signed by DESTINEE MADSEN at 03/19/2022 7:17:48 PM Final Signed (Electronic Signature): Destinee Madsen 03/19/22 4:31 pm Technologist: Care Team Personnel Name: Jason Kim Address: [address] [place] [address]- [place]
--- OUTSIDE RECORDS SUMMARY | 2022-11-21 19:20 | External Medical Summary | Continuity of Care Document ---
Author Name Unknown Organization [facility] Address [address] [facility] [place] [address] Care Team Providers Care Roll Cleaner Name Role Phone Jason Kim Primary Care Physician Encounter [facility]_ID Date(s): 03/22/22 - 03/22/22 [facility] [address] [facility] [place] [address]- Discharge Disposition: Admitted as Inpatient Attending Physician: Terrell Arellano MD Admitting Physician: Terrell Arellano MD Allergies, Adverse Reactions, Alerts No Known Medication Allergies Medications aspirin 81 mg oral delayed release [...] Date: 03/19/22 Status: Ordered Problem List Condition Effective Dates Status Health Status Inform ant HTN (hypertension)(Confirmed) Active Hypothyroid(Confirmed) Active Parkinson disease(Confirmed) Active Prostate cancer, primary, wi th metastasis from prostate to other site(Confirmed) Active Social History Social History Type Response Tobacco Never tobacco user T obacco Use:. Sex Care Team Personnel Name: Jason Kim Address: [address], [place] [address]
--- OUTSIDE RECORDS SUMMARY | 2022-11-21 19:20 | External Medical Summary | Continuity of Care Document ---
Author Name Unknown Organization [facility] Address [address] [facility] [place] [address] Care Team Providers Care Web Application Dev Specialist Name Role Phone Terrell Arellano Primary Care Physician [phone] Carmela Hester Unavailable Unavailable Willa Ashton Unavailable Unavailabl e Encounter [facility]_ID Date(s): 10/13/22 - 10/13/22 [facility] [address] [facility] [place] [address]- [place] Discharge Disposition: Home Attending Physician: MD [...] # 30 tab(s), 2 Refill(s), Pharmacy: [facility], 1 tab(s) PO Once a day (at [...] Use:. Sex Goals Len will dc to [facility]. His son Sheng will transport. Start Date:03/26/22 End Date:03/26/22 Status:Met Progression:Not Met Patient Care team information Personnel Name: MD Terrell Arellano Address: Address: [address] [place] [address]- [place] Name: Carmela Hester Name: Willa Ashton
--- OUTSIDE RECORDS SUMMARY | 2022-11-21 19:20 | External Medical Summary | Continuity of Care Document ---
Author Name Unknown Organization [facility] Address [address] [place] [address] Care Team Providers Care Fruit Room Hand Name Role Phone Jason Kim Primary Care Physician [phone] Encounter [facility] Date(s): 03/23/22 - 03/27/22 [facility] [address] [place] [id number]- [place] Encounter Diagnosis Encephalopathy, unspecified(Final) - Urinary tract infection, site not specified(Final) - Acute kidney failure, unspecified(Final) - Heart failure, unspecified(Final) - Hypotension, unspecified(Final) - Parkinson's disease(Final) - Repeated falls(Final) - Weakness(Final) - Discharge Disposition: [facility] Care Attending Physician: Terrell Arellano MD Admitting Physician: Terrell Arellano MD Allergies, Adverse Reactions, Alerts No Known Medication Allergies Assessment and Plan Extracted from: Title:Discharge Note Author:Sylvia DEVI, Nish Cosme Date:03/27/22 Discharge Plan PT BEING DISCHARGED TO [facility] IN [place], [place] THIS AM FOR ONGOING PT/STRENGTHENING. LIKELY WILL NEED TO BE THERE A FEW WEEKS BEFORE HE CAN GO BACK HOME, WHERE HE HAS A HELPER AND STEPCHILDREN WHO CAN HELP HIM. PT VERY MOTIVATED TO GET BACK HOME. PT'S SON IS TAKING HIM TO THE SNF. Ordered: Discharge Patient, 03/27/22 9:08:00 PDT, Condition on Discharge: Good, PT'S SON IS TAKING PT TO [facility] IN [place] All Diagnoses This Visit 1. GAIT DISTURBANCE 2. PARKINSON'S DISEASE 3. ACUTE KIDNEY INJURY 4. PROSTATE CA Patient Discharge Condition FAIR BUT IMPROVED Discharge Disposition ABOVE THIS NOTE TO SERVE DAILY PROGRESS NOTE WELL FOR MARCH 27, 2022 Patient Education How to Use a Cane How to Use a Walker Fall Prevention in the Home, Adult, [id number] Follow Up With When Contact Information Jason Kim Within As needed [address] [place] [address]- Business (1) Additional Instructions: Future Scheduled Tests Radiology* US Echo 2D Complete EO 03/27/22 Functional Status 03/27/22 History of Fall in Last 3 Months [place]as[place]or Y es 03/26/22 Progress Note-Physician Patient: LEN YAO Age: 86 years Sex: MALE : 1935 Associated Diagnoses: None Author: Adan DEVI, Terrell Subjective His progress has slowed down over the last few days on his strength recovery Otherwise doing well, in good spirits. Health Status Allergies: Allergic Reactions (Selected) No Known Medication Allergies, Allergies (1) Active Severity Reaction No Known Medication Allergies None Documented Current medications: (Selected) Inpatient Medications Ordered Bactrim DS: 1 tab(s), PO, BID Benadryl: 25 mg = 1 cap(s), PO, q8hr, PRN: insomnia Deep Sea Nasal [place]: 1 spray(s), Nostrils-Both, q2hr, PRN: nasal congestion Lasix: 40 mg = 2 tab(s), PO, Daily Lovenox: 40 mg = 0.4 mL, SubQ, qAM Synthroid: 75 mcg, PO, AC Breakfast Tylenol: 500 mg = 1 tab(s), PO, q6hr (int), PRN: pain aspirin: 81 mg = 1 tab(s), PO, Daily carbidopa-levodopa 25 mg-100 mg oral tablet: 2 tab(s), PO, BIDWM carbidopa-levodopa 25 mg-100 mg oral tablet: 3 tab(s), PO, q24hr (int) citalopram: 20 mg = 2 tab(s), PO, Daily pramipexole 0.25 mg oral tablet: 0.25 mg, PO, BID traMADol: 50 mg = 1 tab(s), PO, q6hr (int), PRN: for pain Documented Medications Documented aspirin 81 mg oral [...] All Problems HTN (hypertension) / SNOMED CT 2716619158 / Confirmed Hypothyroid / SNOMED CT 73437715 / Confirmed Parkinson disease / SNOMED CT 73366330 / Confirmed Prostate cancer, primary, 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 / SNOMED CT 042899423 / Confirmed Canceled: No Chronic Problems / Cerner NKP, Active Problems (4) HTN (hypertension) Hypothyroid Parkinson disease Prostate cancer, primary, 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 Neck: Supple, Non-tender, No carotid bruit. Respiratory: Respirations are non-labored, Course crackles in bilateral lung bases. Cardiovascular: Normal rate, Regular rhythm, No murmur. Neurologic: mask like facies, pill rolling tremor at rest, very stiff shuffled movements, specifically with right leg. Results Review Results review Labs (Last four charted values) WBC 9.53 (MARCH 24) Hgb L 10.9 (MARCH 24) Hct L 31.9 (MARCH 24) Plt 201 (MARCH 24) Na 136 (MARCH 24) K 4.0 (MARCH 24) CO2 28 (MARCH 24) Cl 100 (MARCH 24) Cr H 1.60 (MARCH 24) BUN H 37 (MARCH 24) Glucose H 127 (MARCH 24) Ca 9.0 (MARCH 24) Impression and Plan 86 year old with [...] grew out >100k CFU skin taiwo - s/p 3 days of Rocephin followed by 4 days of Bactrim. Discontinue antibiotics today. # Acute CHF: - New diagnosis, has known CAD with h/o stents x4 in the past - appears euvolemic today - decreased lasix to 20 mg PO daily today. - TTE scheudled as outpatient for 03/27 # Hypotension: - Patient was hypotensive shortly after admission in 80s/50s - Resolved - holding home antihypertensives # NANDO: - Due to diuresis - Recheck creatinine in the morning # Frequent falls/generalized weakness - continue to work with PT, is working well every day and making strides to recover # Parkinsons: - continue increased Sinemet to 3 tab with lunch, 2 tab with breakfast and dinner, continue home dose of pramipexole # Prophylaxis: - lovenox # Dispo: - continue swingbed status, will need to discharge to SNF - [facility] - in [place] in the next few days. Medications aspirin 81 mg oral delayed release [...] Start Date: 03/19/22 Status: Ordered Mental Status 03/27/22 Level of Consciousness Alert Problem List Condition Effective Dates Status Health Status Inform ant HTN (hypertension)(Confirmed) Active Hypothyroid(Confirmed) Active Parkinson disease(Confirmed) Active Prostate cancer, primary, wi th metastasis from prostate to other site(Confirmed) Active Results Laboratory List Name Date Automated Differential 03/24/22 CBC w/ Auto Diff 03/24/22 Comprehensive Metabolic Panel2 (CMP2) Most recent to oldest [Reference Range]: 1 Creatinine Level [0.55-1.30 mg/dL] 1.60 mg/dL *HI* (03/24/22 6:15 AM) AGAP [9-18] 12 (03/24/22 6:15 AM) Albumin Level [3.4-5.0 g/dL] 3.1 g/dL *LOW* (03/24/22 6:15 AM) Alk Phos [46-116 U/L] 100 U/L (03/24/22 6:15 AM) Basophil Auto [0.00-0.20 K/mcL] 0.01 K/m cL (03/24/22 6:15 AM) Bili Total [0.2-1.0 mg/dL] 1.0 mg/dL (03/24/22 6:15 AM) BUN [7-18 mg/dL] 37 mg/dL *HI* (03/24/22 6:15 AM) Chloride Level [98-107 mmol/L] 100 mmol/ L (03/24/22 6:15 AM) CO2 [21-32 mmol/L] 28 mmol/L (03/24/22 6:15 AM) Eos Auto [0.00-0.45 K/mcL] 0.10 K/mcL (03/24/22 6:15 AM) Glucose Level [74-106 mg/dL] 127 mg/dL *HI* (03/24/22 6:15 AM) Hct [41.0-50.0 %] 31.9 % *LOW* (03/24/22 6:15 AM) Hgb [13.5-18.0 g/dL] 10.9 g/dL *LOW* (03/24/22 6:15 AM) Lymph Auto [1.00-4.80 K/mcL] 0.50 K/mcL *LOW* (03/24/22 6:15 AM) MCH [26.0-34.0 pg] 33.2 pg (03/24/22 6:15 AM) MCHC [31.0-37.0 g/dL] 34.2 g/dL (03/24/22 6:15 AM) MCV [80.0-100.0 fL] 97.3 fL (03/24/22 6:15 AM) Fulton Auto [0.00-0.80 K/mcL] 0.49 K/mcL (03/24/22 6:15 AM) MPV [8.0-12.0 fL] 9.8 fL (03/24/22 6:15 AM) Neutro Auto [1.80-7.70 K/mcL] 8.30 K/mcL *HI* (03/24/22 6:15 AM) Platelet 201 *NA* (03/24/22 6:15 AM) Potassium Level [3.5-5.1 mmol/L] 4.0 mmo l/L (03/24/22 6:15 AM) RBC [4.00-5.30 M/uL] 3.28 M/uL *LOW* (03/24/22 6:15 AM) RDW [10.0-15.0 %] 13.9 % (03/24/22 6:15 AM) Sodium Level [136-145 mmol/L] 136 mmol/L (03/24/22 6:15 AM) Protein Total [6.4-8.2 g/dL] 6.0 g/dL *LOW* (03/24/22 6:15 AM) WBC [4.00-10.00 K/mcL] 9.53 K/mcL (03/24/22 6:15 AM) Calcium Level [8.5-10.1 mg/dL] 9.0 mg/dL (03/24/22 6:15 AM) ALT/SGPT [14-63 U/L] 18 U/L (03/24/22 6:15 AM) AST/SGOT [15-37 U/L] 19 U/L (03/24/22 6:15 AM) Auto Eos % [0.0-6.0 %] 1.0 % (03/24/22 6:15 AM) Auto Lymph % [20.0-45.0 %] 5.2 % *LOW* (03/24/22 6:15 AM) Auto Neut % [36.0-70.0 %] 87.2 % *HI* (03/24/22 6:15 AM) Auto Baso % [0.0-2.0 %] 0.1 % (03/24/22 6:15 AM) Auto Fulton % [1.0-10.0 %] 5.1 % (03/24/22 6:15 AM) BUN/Creat Ratio [7-18] 23 *HI* (03/24/22 6:15 AM) A/G Ratio [1.0-2.2] 1.1 (03/24/22 6:15 AM) eGFR AA [>=60] 53 *LOW* (03/24/22 6:15 AM) eGFR Non AA [>=60] 44 *LOW* (03/24/22 6:15 AM) Vital Signs Most recent to oldest [Reference Range]: 1 2 3 Height 185.000 cm (03/23/22 11:20 AM) Height/Length Dosing 185.000 cm (03/23/22 11:20 AM) Weight 83.1 kg (03/25/22 5:59 AM) 81.500 kg (03/23/22 11:20 AM) Weight Measured (lbs) 183.204 lb (03/25/22 5:59 AM) Weight Dosing 81.500 kg (03/23/22 11:20 AM) Scale Type Stand up (03/25/22 5:59 AM) Bed scale (03/23/22 11:20 AM) Body Mass Index 23.810 kg/m2 (03/23/22 11:20 AM) Temperature Temporal [36.3-37.8 DegC] 36.8 DegC (03/27/22 9:27 AM) 36.2 DegC *LOW* (03/27/22 7:36 AM) 36.5 DegC (03/26/22 7:20 PM) Temperature Temporal (DegF) [97.3-100 DegF] 98.24 DegF (03/27/22 9:27 AM) 97.16 DegF *LOW* (03/27/22 7:36 AM) 96.98 DegF *LOW* (03/26/22 4:25 PM) Peripheral Pulse Rate [60-100 bpm] 73 bpm (03/27/22 9:27 AM) 81 bpm (03/27/22 7:36 AM) 64 bpm (03/26/22 7:20 PM) Pulse Site Pulse Oximetry (03/26/22 4:25 PM) Pulse Oximetry (03/26/22 12:00 PM) Pulse Oximetry (03/26/22 7:00 AM) Respiratory Rate [14-20 br/min] 20 br/min (03/27/22:27 AM) 20 br/min (03/27/22 7:36 AM) 18 br/min (03/26/22 7:20 PM) Blood Pressure [90-140/60-90 mmHg] 121/57mmHg (03/27/22 9:27 AM) 156/70mmHg *HI* (03/27/22 7:36 AM) 117/57mmHg (03/26/22 7:20 PM) Mean Arterial Pressure, Cuff [65-100 mmHg] 77 mmHg (03/26/22 7:20 PM) 77 mmHg (03/26/22 4:25 PM) 73 mmHg (03/26/22 12:00 PM) BP Site Right arm (03/27/22 9:27 AM) Right arm (03/27/22 7:36 AM) Left arm (03/26/22 7:20 PM) Patient Position BP Sitting (03/27/22 9:27 AM) Sitting (03/27/22 7:36 AM) Supine (03/26/22 7:20 PM) SpO2 [92-100 %] 95 % (03/27/22 9:27 AM) 94 % (03/27/22 7:36 AM) 94 % (03/26/22 7:20 PM) Oxygen Therapy Room air (03/27/22 9:27 AM) Room air (03/27/22 7:40 AM) Room air (03/27/22 7:36 AM) Vital Signs Comments RN noted VS. (03/23/22 12:20 PM) Social History Social History Type Response Tobacco Never tobacco user T obacco Use:. Sex Hospital Discharge Instructions Patient Education 03/27/2022 11:19:14 How to Use a Cane How to Use a Cane Canes are used to help with walking. Using a cane makes you more stable, reduces pain, and eases strain on certain muscle groups. There are various kinds of canes. Most have either a single point, four points (quad cane), or three points at the bottom. The best kind of cane for you depends on what you need it for. People with arthritis generally do well with a single-point cane. People who have certain neurological conditions, such as people who have had a stroke, may do better with a quad canebecause it allows them to put more weight on it (support more of their body weight). How to choose a cane that fits It is important to use a cane that fits properly. A cane fits properly if the top of the cane comesto your wrist joint when you are standing upright with your arm relaxed at your side. How to use your cane Hold your cane in the hand opposite the injured or weaker side. Always move the cane and the foot of the weaker side with each other (in unison). Walking Put as much weight on the cane as necessary to make walking comfortable, stable, and smooth. Stand tall with good posture and look ahead, not down at your feet. Hold the cane about 2 inches (5 cm) in front or to the side of you. Each time you take a step with your injured leg, move the cane at the same time to help balanceyou. Going up steps Step first with your stronger foot. Move the cane and the weaker foot up the step at the same time. Always use the railing with your free hand. Going down steps Step down first with the cane and your weaker foot. Then follow with your stronger foot. Always use the railing with your free hand. Safety tips for home Take these steps to make your home safer when you are walking with a cane: Be familiar with your home environment. Have sturdy handrails in your bathrooms and hallways. Wear nonslip, comfortable, well-fitting footwear. Use night-lights in the dark. Keep floor surfaces clean and dry. Keep high-traffic areas uncluttered. Remove any rugs, cords, or loose objects from the floor. Contact a health care provider if: You still feel unsteady on your feet while using the cane. You develop new pain, such as pain in your back, shoulder, wrist, or hip. You develop any numbness or tingling. Get help right away if: You fall. Summary Using a cane makes you more stable, reduces pain, and eases strain on certain muscle groups. A cane fits properly if the top of the cane comes to your wrist joint when you are standing upright with your arm relaxed at your side. The best kind of cane for you depends on what you need it for. Hold your cane in the hand opposite the injured or weaker side. Always move the cane and the foot of the weaker side with each other (in unison). This information is not intended to replace advice given to you by your health care provider. Make sure you discuss any questions you have with your health care provider. Document Revised: 11/09/2017 Document Reviewed: 11/21/2017 [employer] Patient Education 2020 [employer] 03/27/2022 11:19:14 How to Use a Walker How to Use a Walker This sheet gives you information about how to use a walker. Your health care provider may also: Give you more specific instructions based on your condition. Give you instructions on how to use your legs or arms to support your body weight (weight bearing). What are the risks? Using a walker is generally safe. However, it may cause falls if it is not used correctly. How to walk with a walker The best way to walk with a walker depends on whether you are using a standard walker or a front-wheeled walker. A standard walker has rubber tips on the ends of all four legs. A front-wheeled walkerhas wheels on the ends of the front legs and rubber tips on the ends of the back legs. Do not use your walker on stairs or an escalator unless you have been trained by a physical therapist and your health care provider approves. Standard walker 1. plastic duplicator your walker. Do not slide your standard walker. 2. Set down your walker, one step-length in front of you. Make sure that all four legs of the walker touch the ground at the same time. Your toes should be farther forward than the back legs of your walker. 3. Hold on to the walker, and press it with your arms for support. 4. Step your weaker leg into the middle of the walker. Step your stronger leg forward to land next to your weaker leg. 5. Repeat this process for each step. Front-wheeled walker 1. Slide your front-wheeled walker one step-length in front of you. Your toes should be farther forward than the back legs of your walker. 2. Hold on to the walker for support and press through the handrails as needed for support. 3. Step your weaker leg into the middle of the walker. Step your stronger leg forward to land next to your weaker leg. 4. Repeat the process for each step. Tips Always keep both feet within the width of the walker's legs or wheels. When using your walker, you should not feel like you need to lean forward or to the side to keep your hands on the handgrips. Make sure you are following any weight-bearing instructions that your health care provider gaveyou. If you have a standard walker: Do not slide your walker when you are moving. If you have a front-wheeled walker: Be careful not to let the walker get too far ahead of you as you walk. If your walker does not glide well over carpet, consider cutting an "X" into two tennis balls and placing the balls over the back legs of your walker. How to stand up with a walker 1. Put your walker in front of you. 2. Slide forward in your chair. 3. Position your legs so that your weaker leg is ahead of you and your stronger leg is bent and near your chair. 4. Position your hands. If your chair has armrests, put each hand on an armrest. If there are no armrests, put the hand opposite your weaker leg on the chair seat, and put the other hand on the center of the walker's crossbar. 5. Lean forward and push up from your chair. 6. Rise by straightening your stronger leg. 7. Steady yourself. 8. Carefully move your hands to the handgrips of the walker. Tips Do not pull on the walker when you stand up. This may cause it to tip. Sit in a firm chair whenever you can. A low seat or an overstuffed chair or sofa is hard to getout of. How to sit down with a walker Seat with armrests 1. Back up toward your seat, using your walker, until you feel the back of your legs touch the chair. 2. Carefully reach your hands behind you and put each hand on an armrest. 3. Slowly lower yourself into the seat with your injured leg out in front. Seat without armrests 1. Back up toward the side of the seat, using your walker, until you feel the back of your legs touch the chair. 2. Use one hand to hold on to the back of the chair, and use the other hand to hold on to the frontof the seat. 3. Slowly lower yourself into the seat. How to use a walker on a curb or step Stepping up 1. Put all four legs of the walker on the curb or step. 2. Get your feet as close to the curb or step as you can. 3. Test the steadiness of the walker by pressing down on the handgrips. 4. If the walker is steady, press down on it with your hands as you step up with your stronger leg. 5. Step up with your weaker leg. Stepping down 1. Put all four legs of the walker on the surface that is lower than the curb or step. 2. Get your feet as close to the curb or step as you can. 3. Test the steadiness of the walker by pressing down on the handgrips. 4. If the walker is steady, press down on it with your hands as you step down with your weaker leg. 5. Step down with your stronger leg. Summary Follow specific instructions from your health care provider on how to use a walker. Do not use your walker on stairs or an escalator unless you have been trained by a physical therapist and your health care provider approves. Make sure you are following any weight-bearing instructions that your health care provider gaveyou. This information is not intended to replace advice given to you by your health care provider. Make sure you discuss any questions you have with your health care provider. Document Revised: 12/19/2020 Document Reviewed: 09/14/2019 [employer] Patient Education 2020 [employer] 03/27/2022 11:19:14 Fall Prevention in the Home, Adult, [id number] Fall Prevention in the Home, Adult Falls can cause injuries and can happen to people of all ages. There are many things you can do to make your home safe and to help prevent falls. Ask for help when making these changes. What actions can I take to prevent falls? General Instructions Use good lighting in all rooms. Replace any light bulbs that burn out. Turn on the lights in dark areas. Use night-lights. Keep items that you use often in xyao-xi-kelyl places. Lower the shelves around your home if needed. Set up your furniture so you have a clear path. Avoid moving your furniture around. Do not have throw rugs or other things on the floor that can make you trip. Avoid walking on wet floors. If any of your floors are uneven, fix them. Add color or contrast paint or tape to clearly cornelius and help you see: Grab bars or handrails. First and last steps of staircases. Where the edge of each step is. If you use a stepladder: Make sure that it is fully opened. Do not climb a closed stepladder. Make sure the sides of the stepladder are locked in place. Ask someone to hold the stepladder while you use it. Know where your pets are when moving through your home. What can I do in the bathroom? Keep the floor dry. Clean up any water on the floor right away. Remove soap buildup in the tub or shower. Use nonskid mats or decals on the floor of the tub or shower. Attach bath mats securely with double-sided, nonslip rug tape. If you need to sit down in the shower, use a plastic, nonslip stool. Install grab bars by the toilet and in the tub and shower. Do not use towel bars as grab bars. What can I do in the bedroom? Make sure that you have a light by your bed that is easy to reach. Do not use any sheets or blankets for your bed that hang to the floor. Have a firm chair with side arms that you can use for support when you get dressed. What can I do in the kitchen? Clean up any spills right away. If you need to reach something above you, use a step stool with a grab bar. Keep electrical cords out of the way. Do not use floor greenlandic or wax that makes floors slippery. What can I do with my stairs? Do not leave any items on the stairs. Make sure that you have a light switch at the top and the bottom of the stairs. Make sure that there are handrails on both sides of the stairs. Fix handrails that are broken or loose. Install nonslip stair treads on all your stairs. Avoid having throw rugs at the top or bottom of the stairs. Choose a carpet that does not hide the edge of the steps on the stairs. Check carpeting to make sure that it is firmly attached to the stairs. Fix carpet that is looseor worn. What can I do on the outside of my home? Use bright outdoor lighting. Fix the edges of walkways and driveways and fix any cracks. Remove anything that might make you trip as you walk through a door, such as a raised step or threshold. Trim any bushes or trees on paths to your home. Check to see if handrails are loose or broken and that both sides of all steps have handrails. Install guardrails along the edges of any raised decks and porches. Clear paths of anything that can make you trip, such as tools or rocks. Have leaves, snow, or ice cleared regularly. Use sand or salt on paths during winter. Clean up any spills in your garage right away. This includes grease or oil spills. What other actions can I take? Wear shoes that: Have a low heel. Do not wear high heels. Have rubber bottoms. Feel good on your feet and fit well. Are closed at the toe. Do not wear open-toe sandals. Use tools that help you move around if needed. These include: Canes. Walkers. Scooters. Crutches. Review your medicines with your doctor. Some medicines can make you feel dizzy. This can increase your chance of falling. Ask your doctor what else you can do to help prevent falls. Where to find more information Centers for Disease Control and Prevention, [employer]: www.cdc.gov National [place] on Aging: www.clovis.nih.gov Contact a doctor if: You are afraid of falling at home. You feel weak, drowsy, or dizzy at home. You fall at home. Summary There are many simple things that you can do to make your home safe and to help prevent falls. Ways to make your home safe include removing things that can make you trip and installing grab bars in the bathroom. Ask for help when making these changes in your home. This information is not intended to replace advice given to you by your health care provider. Make sure you discuss any questions you have with your health care provider. Document Revised: 05/22/2021 Document Reviewed: 05/22/2021 [employer] Patient Education 2020 [employer]. Follow Up Care 03/23/2022 10:17:48 With:Jason Kim Address: [address] [place] [address]- Business (1) When:As needed Goals Len will dc to [facility]. His son Sheng will transport. Start Date:03/26/22 End Date:03/26/22 Status:Met Progression:Not Met Care Team Personnel Name: Jason Kim Address: [address], [place] [address]
--- OUTSIDE RECORDS SUMMARY | 2022-11-21 19:20 | External Medical Summary | Continuity of Care Document ---
Author Name Unknown Organization [facility] Address [address] [place] [place] [address] Care Team Providers Care Tenterer Name Role Phone Judy Jason Primary Care Physician Willa Ashton Encounter [facility] Date(s): 09/05/22 - 09/08/22 [facility] [address] [facility] [address]- [place] Encounter Diagnosis Pneumonia(Discharge Diagnosis) - 09/08/22 Discharge Disposition: Discharge/Transfer to [facility] Attending Physician: DO Micah Ceja Admitting Physician: DO Micah Ceja Allergies, Adverse Reactions, Alerts No Known Medication Allergies Assessment and Plan Extracted from: Title:SOAP Note: Simple * Author:DO Galen Ceja Date:09/07/22 Impression and Plan Generalized weakness: Hx Parkinson's disease. No new issues overnight. Dispo: anticipate discharge to [facility] on Thursday morning. Future Scheduled Tests Radiology* US Echo 2D Complete EO 03/27/22 Functional Status 09/08/22 History of Fall in Last 3 Months [place] [facility] 09/07/22 Progress Note-Physician Patient: LEN YAO Age: 87 years Sex: MALE : 1935 Associated Diagnoses: None Author: DO Micah Ceja Subjective Swingbed status for conditioning and strengthening. PT working with patient. Daughter in the room and requesting when he can discharge to [facility]. Health Status Allergies: Allergic Reactions (Selected) No Known Medication Allergies Problem list (past medical history): All Problems Prostate cancer, primary, 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 / SNOMED CT 041016017 / Confirmed Parkinson disease / SNOMED CT 35853820 / Confirmed Hypothyroid / SNOMED CT 11550697 / Confirmed HTN (hypertension) / SNOMED CT 8840845071 / Confirmed Objective VS/Measurements Vital Signs 09/07/2022 7:39 PST Temperature Temporal Artery 36.3 DegC Temperature Temporal Artery (DegF) 97.34 DegF LOW Peripheral Pulse Rate 64 bpm Pulse Site Pulse Oximetry Respiratory Rate 16 br/min Systolic Blood Pressure 110 mmHg Diastolic Blood Pressure 54 mmHg LOW Mean Arterial Pressure, Cuff 73 mmHg BP Site Left arm SpO2 93 % Oxygen Flow Rate 2 L/min Oxygen Therapy Nasal cannula SpO2 Location Forehead BP Method Automatic Neck: Supple, Non-tender. Respiratory: Lungs are clear to auscultation, Respirations are non-labored, Breath sounds are equal, Symmetrical chest wall expansion. Cardiovascular: Normal rate, Regular rhythm, Good pulses equal in all extremities. Gastrointestinal: Soft, Normal bowel sounds. Integumentary: Warm, Dry, Binger, Intact. Impression and Plan Generalized weakness: Hx Parkinson's disease. No new issues overnight. Dispo: anticipate discharge to [facility] on Thursday. 09/06/22 Bathing ADL Index Requires assistance (1) Dressing ADL Index Requires assistance (1) Toileting ADL Index Requires assistance (1) Transferring Bed or Chair ADL Index Requ ires assistance (1) Continence ADL Index Requires assistance (1) ADLs Moderate assistance 09/05/22 Recent Travel History No recent travel Other exposure to Infectious Disease Non e Medications !-Augmentin 875 mg-125 mg oral tablet 1 tab(s) amoxicillin (as trihydrate), PO, q12hr, # 8 tab(s), 0 Refill(s), Pharmacy: [facility]1 tab(s) PO q12hr,x4 day(s), 185, cm, 09/05/22 18:23:00 PDT, Height/Length Dosing, 72, kg, 08/24/221:30:00 PDT, Weight Dosing Start Date: 09/08/22 Stop [...] tablet 1 tab(s) ( 20 mg ), Tab, PO, Daily, # 30 tab(s), 11 Refill(s), Pharmacy: [facility] 1 tab(s) PO Daily, 185, cm, 09/05/22 18:23:00 PDT, Height/Length Dosing, 72, kg, 08/24/22 1:30:00 PDT, Weight Dosing Start Date: 09/08/22 Status: Ordered docusate-senna 50 mg-8.6 mg oral [...] Weight Dosing Start Date: 09/08/22 Status: Ordered potassium chloride 10 mEq oral [...] Weight Dosing Start Date: 09/08/22 Status: Ordered Mental Status 09/08/22 Level of Consciousness Alert Problem List Condition Confirmation Course Effective Dates Status Health St atus Informant HTN (hypertension) Confirmed Active Hypothyroid Confirmed Active Parkinson disease Confirmed Active Prostate cancer, primary, 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 Confirmed Active Vital Signs Most recent to oldest [Reference Range]: 1 2 3 Height 185.000 cm (09/05/22 6:20 PM) Height/Length Dosing 185.000 cm (09/05/22 6:20 PM) Scale Type Bed (09/05/22 6:20 PM) Temperature Temporal Artery [36.3-37.8 DegC] 36.5 DegC (09/08/22 7:37 AM) 36.5 DegC (09/08/22 4:15 AM) 36.5 DegC (09/08/22 12:08 AM) Temperature Temporal Artery (DegF) [97.9-100.6 DegF] 97.7 DegF *LOW* (09/08/22 7:37 AM) 97.7 DegF *LOW* (09/08/22 4:15 AM) 97.7 DegF *LOW* (09/08/22 12:08 AM) Peripheral Pulse Rate [60-100 bpm] 64 bpm (09/07/22 7:39 AM) 61 bpm (09/06/22 7:45 PM) 63 bpm (09/06/22 3:10 PM) Pulse Site Pulse Oximetry (09/08/22 7:37 AM) Pulse Oximetry (09/08/22 4:15 AM) Pulse Oximetry (09/08/22 12:08 AM) Heart Rate Monitored [60-100 bpm] 64 bpm (09/08/22:37 AM) 66 bpm (09/08/22 4:15 AM) 76 bpm (09/08/22 12:08 AM) Respiratory Rate [14-20 br/min] 18 br/min (09/08/22 7:37 AM) 18 br/min (09/08/22 4:15 AM) 18 br/min (09/08/22 12:08 AM) Blood Pressure [90-140/60-90 mmHg] 125/62mmHg (09/08/22:37 AM) 142/68mmHg *HI* (09/08/22 4:15 AM) 140/70mmHg (09/08/22 12:08 AM) Mean Arterial Pressure, Cuff [65-100 mmHg] 93 mmHg (09/08/22 4:15 AM) 93 mmHg (09/08/22 12:08 AM) 83 mmHg (09/07/22 7:15 PM) BP Site Right arm (09/08/22:37 AM) Right arm (09/08/22:15 AM) Right arm (09/08/22 12:08 AM) SpO2 [92-100 %] 92 % (09/08/22 7:37 AM) 91 % *LOW* (09/08/22:15 AM) 92 % (09/08/22 12:08 AM) Oxygen Flow Rate 1 L/min (09/08/22 4:15 AM) 1 L/min (09/08/22 12:08 AM) 2 L/min (09/07/22 7:39 AM) Oxygen Therapy Room air (09/08/22 8:54 AM) Room air (09/08/22:37 AM) Nasal cannula (09/08/22 4:15 AM) SpO2 Location Right hand (09/08/22 7:37 AM) Left hand (09/08/22 4:15 AM) Left hand (09/08/22 12:08 AM) Peripheral Pulse Rate with Activity 72 bpm (09/06/22 3:10 PM) BP Method Automatic (09/08/22 7:37 AM) Manual (09/08/22 4:15 AM) Manual (09/08/22 12:08 AM) Social History Social History Type Response Tobacco Never tobacco user T obacco Use:. Sex Hospital Discharge Instructions Patient Education 09/08/2022 13:05:40 Fall Prevention in the Home, Adult Fall [...] Use night-lights. Place frequently used items in [id number]-zq-[id number] places. Lower the shelves around your home [...] of the way. Do not use floor korean or wax that makes floors slippery. If [...] include working with a physical therapist or certified personal trainer to improve your strength, balance, and endurance. Where to find more information Centers for Disease Control and Prevention, [place]: https://www.cdc.gov National [place] on Aging: https://fn3ijqn.clovis.nih.gov Contact a health care provider if: You [...] provider. Document Revised: 10/01/2018 Document Reviewed: 06/03/2018 [employer] Patient Education 2020 [employer] Business Plan. 09/08/2022 13:05:40 Aspiration Pneumonia, Adult Aspiration Pneumonia, Adult Aspiration pneumonia is an infection that occurs after lung (pulmonary) aspiration. Pulmonary aspiration is when you inhale a large amount of food, liquid, stomach acid, or saliva into the lungs. This can cause inflammation and infection in the lungs. This can make you cough and make it hard to breathe. Aspiration pneumonia is a serious condition and can be life-threatening. What are the causes? This condition may be caused by: Bacteria in food, liquid, stomach acid, or saliva that is inhaled into the lung. Irritation and inflammation that results from material, such as blood or a foreign body, being inhaled into the lung. This can lead to an infection even though the material is not originally contaminated with bacteria. What increases the risk? You are more likely to get aspiration pneumonia if you have a condition that makes it hard to breathe, swallow, cough, or gag. These conditions may include: A breathing disorder, such as chronic obstructive pulmonary disease, that makes it hard to eat or drink while breathing. A brain (neurologic) disorder, such as stroke, seizures, Parkinson's disease, dementia, amyotrophic lateral sclerosis (ALS), or brain injury. Having gastroesophageal reflux disease (GERD). Having a weak disease-fighting system (immune system). Having a narrowing of the tube that carries food to the stomach (esophageal narrowing). Other factors that may make you more likely to get aspiration pneumonia include: Being older than age 60 and frail. Being given a general anesthetic for procedures. Drinking too much alcohol and passing out. If you pass out and vomit, then vomit can be inhaledinto your lungs. Taking certain medicines, such as tranquilizers or sedatives. Taking poor care of your mouth and teeth. Being malnourished. What are the signs or symptoms? The main symptom of pulmonary aspiration may be an episode of choking or coughing while eating or drinking. When aspiration pneumonia develops, symptoms include: Persistent cough. Difficulty breathing, such as wheezing or shortness of breath. Fever. Chest pain. Being more tired than usual (fatigue). Pulmonary aspiration may be silent, meaning that it is not associated with coughing or choking while eating or drinking. How is this diagnosed? This condition may be diagnosed based on: A physical exam. Tests, such as: A chest X-ray. A sputum culture. Saliva and mucus (sputum) are collected from the lungs or the tubes that carry air to the lungs (bronchi). The sputum is then tested for bacteria. Oximetry. A sensor or clip is placed on areas such as a finger, earlobe, or toe to measure the oxygen level in your blood. Blood tests. A swallowing study. This test looks at how food is swallowed and whether it goes into your windpipe (trachea) or esophagus. A bronchoscopy. This test uses a flexible tube (bronchoscope) to see inside the lungs. How is this treated? This condition may be treated with: Medicines. Antibiotic medicine will be given to kill the pneumonia bacteria. Other medicines may also be used to reduce fever, pain, or inflammation. Breathing assistance and oxygen therapy. Depending on how well you are breathing, you may need to be given oxygen, or you may need breathing support from a breathing machine (ventilator). Thoracentesis. This is a procedure to remove fluid that has built up in the space between the linings of the chest wall and the lungs. Dietary changes. You may need to avoid certain food textures or liquids. For people who have recurrent aspiration pneumonia, a feeding tube might be placed in the stomach for nutrition. Follow these instructions at home: Medicines Take eeho-ghb-kypbfur and prescription medicines only as told by your health care provider. If you were prescribed an antibiotic medicine, take it as told by your health care provider. Donot stop taking the antibiotic even if you start to feel better. Take cough medicine only if you are losing sleep. Cough medicine can prevent your body's natural ability to remove mucus from your lungs. General instructions Carefully follow any eating instructions you were given, such as avoiding certain food texturesor thickening your liquids. Thickening liquids reduces the risk of developing aspiration pneumonia again. Return to normal activities as told by your health care provider. Ask your health care providerwhat activities are safe for you. Sleep in a semi-upright position at night. Try to sleep in a reclining chair, or place a few pillows under your head in bed. Do not use any products that contain nicotine or tobacco, such as cigarettes, e-cigarettes, andchewing tobacco. If you need help quitting, ask your health care provider. Keep all follow-up visits as told by your health care provider. This is important. Contact a health care provider if you: Have a fever. Are coughing or choking while eating or drinking. Continue to have signs or symptoms of aspiration pneumonia. Get help right away if you have: Worsening shortness of breath, wheezing, or difficulty breathing. Chest pain. Summary Aspiration pneumonia is an infection that occurs after lung (pulmonary) aspiration. Pulmonary aspiration is when you inhale a large amount of food, liquid, stomach acid, or saliva into the lungs. The main symptom of pulmonary aspiration may be an episode of choking or coughing. It may also be silent without coughing or choking. You are more likely to get aspiration pneumonia if you have a condition that makes it hard to breathe, swallow, cough, or gag. This information is not intended to replace advice given to you by your health care provider. Make sure you discuss any questions you have with your health care provider. Document Revised: 10/19/2020 Document Reviewed: 10/19/2020 [employer] Patient Education 2021 [employer] Business Plan. Follow Up Care 09/05/2022 17:57:11 With:Follow up with primary care provider Address:Unknown When:5 to 7 days Comments:Office will call to schedule follow up With:Follow-up with Dr. Arellano within 1 week to establish care as new PCP. Address:Unknown When: Unknown With:Terrell Sebastianews Address: [address] [place] [address], [place] [id number]- Business (1) When: Unknown Goals Len will dc to [facility]. His son Sheng will transport. Start Date:03/26/22 End Date:03/26/22 Status:Met Progression:Not Met Discharge summary * Neida Rivera: PERFORM Event Display: Discharge Note Authored Date: Note * DO Micah Ceja: PERFORM, SIGN, VERIFY Event Display: Progress Note-Physician Authored Date: Patient: LEN YAO Age: 87 years Sex: MALE : 1935 Associated Diagnoses: None Author: DO Micah Ceja Subjective Swingbed status for conditioning and strengthening. PT working with patient. Daughter in the room and requesting when he can discharge to [facility]. Health Status Allergies: Allergic Reactions (Selected) No Known Medication Allergies Problem list (past medical history): All Problems Prostate cancer, primary, 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 / SNOMED CT 725553367 / Confirmed Parkinson disease / SNOMED CT 44434393 / Confirmed Hypothyroid / SNOMED CT 01352403 / Confirmed HTN (hypertension) / SNOMED CT 8162089122 / Confirmed Objective VS/Measurements Vital Signs 09/07/2022 7:39 PST Temperature Temporal Artery 36.3 DegC Temperature Temporal Artery (DegF) 97.34 DegF LOW Peripheral Pulse Rate 64 bpm Pulse Site Pulse Oximetry Respiratory Rate 16 br/min Systolic Blood Pressure 110 mmHg Diastolic Blood Pressure 54 mmHg LOW Mean Arterial Pressure, Cuff 73 mmHg BP Site Left arm SpO2 93 % Oxygen Flow Rate 2 L/min Oxygen Therapy Nasal cannula SpO2 Location Forehead BP Method Automatic Neck: Supple, Non-tender. Respiratory: Lungs are clear to auscultation, Respirations are non-labored, Breath sounds are equal, Symmetrical chest wall expansion. Cardiovascular: Normal rate, Regular rhythm, Good pulses equal in all extremities. Gastrointestinal: Soft, Normal bowel sounds. Integumentary: Warm, Dry, Binger, Intact. Impression and Plan Generalized weakness: Hx Parkinson's disease. No new issues overnight. Dispo: anticipate discharge to [facility] on Thursday morning. [Electronically Signed on: 09/07/2022 19:17 PST] DO Micah Ceja [Verified on: 09/07/2022 19:17 PST] DO Micah Ceja Patient Care team information Personnel Name: Jason Kim Address: Address: [facility] [address] [place] [address], [place] [address]- [place] Name: Willa Ashton
--- OUTSIDE RECORDS SUMMARY | 2022-11-21 19:20 | External Medical Summary | CCD ---
Author Name Auto Generated Organization [facility] Care Team Providers Care Barrel Endshake Adjuster Name Role Phone DEVORAH CECELIA Primary Care Provider DANIEL Galvez Consulting Provider [phone] Problem List Condition Effective Dates Status No Chronic Problems Active Results Radiology Reports Exam Date Time Procedure Performing Provider Status 11/14/2020 11:09:45 CT Head or Brain w/o Contrast Lia Mcdonald; Francy (Verified) Notes: (CT Head or Brain w/o Contrast) Radiation Dose Estimate: CTDI DLP(mGy-cm) Body Part Effective Dose(mSv) -- 983.2000 -- 0.0000 Total Effective Dose: 0.639020 mSv (CT Head or Brain w/o Contrast) Reason For Exam: S/P fall. Report Name: ROMINA YAO Date of 1935 : Study: CT HEAD OR BRAIN W/O CONTRAST Facility: [facility] Physician: DANIEL BILLY PRESCHOOL DIRECTOR Date of 11/14/2020 11:01:50 AM Service: CLINICAL: Head injury s/p fall. TECHNIQUE: Axial imaging of the brain performed without contrast. FINDINGS: Moderate chronic small vessel ischemic changes. No evidence of acute ischemia. No hemorrhage or extraaxial fluid collections. No hydrocephalus. No evidence of mass. No fracture. IMPRESSION: No acute intracranial pathology. DA/tml Dd: 11/14/2020 11:14 AM Dt: 11/14/2020 12:20 PM Dictated by Destinee Madsen MD Signed by DESTINEE MADSEN at 11/14/2020 2:58:56 PM Final Signed (Electronic Signature): Destinee Madsen 11/14/20 3:27 pm Technologist: JAE Exam Date Time Procedure Performing Provider Status 11/14/2020 10:59:52 XR Hip 2-3 Views Lt w/ Pelvis Lia Mcdonald; Auth (Verified) Notes: (XR Hip 2-3 Views Lt w/ Pelvis) Reason For Exam: Fall, left hip pain. Report Name: ROMINA YAO Date of 1935 : Study: XR HIP 2-3 VIEWS LT W/ PELVIS Facility: [facility] Physician: DANIEL BILLY [facility] Date of 11/14/2020 10:49:48 AM Service: CLINICAL: Left hip pain after fall. TECHNIQUE: Left hip and pelvis series. FINDINGS: Moderate osteoarthritis of the left hip. No fracture. Remainder of pelvis appears intact. IMPRESSION: Moderate osteoarthritis of the left hip. DA/tml Dd: 11/14/2020 11:13 AM Dt: 11/14/2020 12:16 PM Dictated by Destinee Madsen MD Signed by DESTINEE MADSEN at 11/14/2020 2:58:56 PM Final Signed (Electronic Signature): Destinee Madsen 11/14/20 3:27 pm Technologist: JAE
--- OUTSIDE RECORDS SUMMARY | 2022-11-21 19:20 | External Medical Summary | Continuity of Care Document ---
Author Name Unknown Organization [facility] Address [address] [facility] [place] [address] Care Team Providers Care Pricer Bagger Name Role Phone ArellanoTerrell brito Primary Care Physician Carmela Hester Unavailable Unavailable Willa Ashton Unavailable Unavailabl e Encounter [facility] Date(s): 09/29/22 - 09/29/22 [facility] [address] [facility] [place] [address]- [place] Encounter Diagnosis Pneumonia(Discharge Diagnosis) - 09/29/22 Discharge Disposition: Home Attending Physician: Miladis Irene Admitting Physician: Miladis Irene Allergies, Adverse Reactions, Alerts No Known Medication [...] # 30 tab(s), 2 Refill(s), Pharmacy: [facility] 1 tab(s) PO Once a day [...] Confirmed Active Chest congestion Confirmed Active Results Radiology Reports * Exam Date Time Procedure Performing Provider Status 09/29/22 2:55 PM XR Chest 2 Views Pavan RT, Lia; Auth (Verified) Notes: (XR Chest 2 Views) Reason For Exam: chest congestion/ aspiration pneumonia follow up XR Chest 2 Views [facility] DATE OF EXAM: 09/29/2022 2:54 PM HISTORY: chest congestion/ aspiration pneumonia follow up. PROVIDER: Miladis Irene COMPARISON: CT chest with contrast August 2022. TECHNIQUE: Frontal and lateral views of the chest FINDINGS: Symmetric hyperinflation. Increased AP diameter. Prominent retrosternal clear space. Bibasal infiltrates right greater than left with blunted right costophrenic sulcus. Heart and osseous structures are stable. IMPRESSION: Bibasilar infiltrates right greater than left with blunted right costophrenic sulcus. Allowing for alteration in technique, findings are perhaps slightly worse since the previous CT examination. THIS IS AN ELECTRONICALLY SIGNED REPORT IN [id number] BY Terrell Moore M.D. on 09/29/2022 2:58 PM sghcprovider Final Signed (Electronic Signature): MD TERRELL MOORE 09/29/22 2:58 pm Technologist: JAE Social History Social History Type Response Tobacco Never tobacco user T obacco Use:. Sex Goals Len will dc to [facility]. His son Sheng will transport. Start Date:03/26/22 End Date:03/26/22 Status:Met Progression:Not Met XR Chest 2 Views * MD TERRELL MOORE: VERIFY, VERIFY DomainUser, Generated: PERFORM Event Display: Radiology Report Authored Date: [id number] [facility] DATE OF EXAM: 09/29/2022 2:54 PM HISTORY: chest congestion/ aspiration pneumonia follow up. PROVIDER: Miladis Irene COMPARISON: CT chest with contrast August 2022. TECHNIQUE: Frontal and lateral views of the chest FINDINGS: Symmetric hyperinflation. Increased AP diameter. Prominent retrosternal clear space. Bibasal infiltrates right greater than left with blunted right costophrenic sulcus. Heart and osseous structures are stable. IMPRESSION: Bibasilar infiltrates right greater than left with blunted right costophrenic sulcus. Allowing for alteration in technique, findings are perhaps slightly worse since the previous CT examination. THIS IS AN ELECTRONICALLY SIGNED REPORT IN [id number] BY Terrell Moore M.D. on 09/29/2022 2:58 PM sghcprovider Final Signed (Electronic Signature): MD TERRELL MOORE 09/29/22 2:58 pm Technologist: JAE Patient Care team information Personnel Name: MD Terrell Arellano Address: Address: [address] [place] [address], [place] [address]- Name: Carmela Hester Name: Willa Ashton
--- OUTSIDE RECORDS SUMMARY | 2022-11-21 19:20 | External Medical Summary | Continuity of Care Document ---
Author Name Unknown Organization [facility] Address [address] [place] [address] Care Team Providers Care Senior Credit Officer Name Role Phone ArellanoTerrell brito Primary Care Physician Carmela Hester Unavailable Unavailable Willa Ashton Unavailable Unavailabl e Encounter [facility] Date(s): 09/29/22 - 09/29/22 [facility] [address] [place] [address]- [place] Encounter Diagnosis Chest congestion(Discharge Diagnosis) - 09/29/22 Discharge Disposition: Home Attending Physician: Miladis Irene Allergies, Adverse Reactions, Alerts No Known Medication Allergies Assessment and Plan Future Appointments Future Scheduled Tests Radiology* US Echo 2D Complete EO 03/27/22 Functional Status 09/29/22 History of Fall in Last 3 Months [facility] o Other exposure to Infectious Disease COV ID-19 Symptoms Present Medications !-Augmentin 875 mg-125 mg oral tablet [...] to oldest [Reference Range]: 1 Temperature Temporal [36.3-37.8 DegC] 36 .3 DegC (09/29/22 1:54 PM) Peripheral Pulse Rate [60-100 bpm] 71 bp m (09/29/22 1:54 PM) Respiratory Rate [14-20 br/min] 18 br/mi n (09/29/22 1:54 PM) Blood Pressure [90-140/60-90 mmHg] 100/5 8mmHg (09/29/22 1:54 PM) SpO2 [92-100 %] 93 % (09/29/22 1:54 PM) Social History Social History Type Response Tobacco Never tobacco user T obacco Use:. Sex Goals Len will dc to [facility]. His son Sheng will transport. Start Date:03/26/22 End Date:03/26/22 Status:Met Progression:Not Met Note * Miladis Irene: PERFORM Event Display: Office/Clinic Note Authored Date: [id number] LEN YAO :1935 Age:87 years Sex:MALE Visit Date:09/29/2022 Primary Care Physician: MD Terrell Arellano Chief Complaint PT. here for ongoing congestion, cough x 1 week History of Present Illness A 87 yo presents today for ongoing chest congestion. Patient seen in ER on 09/08 for aspiration pneumonia and after a fall. Suspected due to Parkinson's and having progressive problemsswallowing. He was treated with IV antibiotics and he had oral antibiotics until 09/15. Patient has not noted any change to his breathing since then but [facility] are concerned for a worsening cough and chest congestion. Patient was sent over Tessalon Perles 4-5 days ago and did not help with deep productive cough.Cough is noted through out the day worse with warm showers. Daughter who presented with him today noted that he has had the cough for the last2 months beforehewas diagnosed with pneumonia. He has had two more fall this week, which happened more frequently since the start of the cough. Patient has no history of smoking but does have history of Parkinsons and prostate cancer. Symptoms have progressed in the last 2 months as well and patient was moved to [facility] after last ER stay. Review of Systems ros is negative excepted as noted above in the HPI Physical Exam Vitals & Measurements T:36.3 C (Temporal Artery) HR:71(Peripheral) RR:18 BP:100/58 SpO2:93% GEN: VSS, NAD. Skin warm and dry w/o quintana or lesions. Patient is alert and oriented x 4. LUNGS: CTA, moving air well all nelson. No wheezes, rubs, or ronchii present. HEART: RRR w/o murmurs, r M/S: moving all ext equally. Walks with a normal gait. Stands/sits w/o difficulty. NEURO: CN II-XII grossly intact. Depression Screen PHQ 2 Feeling Down, Depressed, Hopeless: Not at all Initial Depression Screen Score: 0 score Little Interest - Pleasure in Activities: Not at all Assessment/Plan 1.Chest [id number] Deep productive cough noted in clinic but CTA without wheezes or hypoxia. Follow up up with chest X ray for aspiration pneumonia, will prescribed antibiotics as necessary and notify [facility]. may be residual congestion form early pneumonia. Follow up with PCP tomorrow. Patient will return to medical care if symptoms worsen in 5-7 daysor if new symptoms present as a result of treatment initiatedtoday. If symptoms did not show any sign of improvement with treatment given today, patient willfollow up with medical care as needed for symptoms including ER or primary care depending on symptoms. Orders: XR Chest 2 Views, 09/29/22 Routine, chest congestion/ aspiration pneumonia follow up, Allow Modification Per Radiologist, Transport Mode: Wheelchair, Pneumonia, Order for future visit Future Orders XR Chest 2 Views, 09/29/22 Routine, chest congestion/ aspiration pneumonia follow up, Allow Modification Per Radiologist, Transport Mode: Wheelchair, Pneumonia, Order for future visit Goals and Interventions Len will dc to [facility]. His son Sheng will transport. 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 Historical No qualifying data Medications !-Augmentin 875 mg-125 mg oral tablet, 1 tab(s), PO, q12hr aspirin 81 mg oral delayed release tablet, 81 mg= 1 tab(s), PO, Daily carbidopa-levodopa 25 mg-100 mg oral tablet, 1 tab(s), PO, As Directed, 11 refills citalopram 20 mg oral tablet, 40 mg= 2 tab(s), PO, Daily, 11 refills docusate-senna 50 mg-8.6 mg oral tablet, 1 tab(s), PO, Daily, 11 refills levothyroxine 75 mcg (0.075 mg) oral tablet, 75 mcg= 1 tab(s), PO, Daily, 11 refills potassium chloride 10 mEq oral capsule, extended release, 20 mEq, PO, Daily, 11 refills pramipexole 0.25 mg oral tablet, 0.25 mg= 1 tab(s), PO, BID, 11 refills SEROquel 50 mg oral tablet, 50 mg= 1 tab(s), PO, qPM, 4 refills Tessalon Perles traZODone 50 mg oral tablet, 50 mg= 1 tab(s), PO, Once a day (at bedtime), 2 refills Allergies No Known Medication Allergies Social History Electronic Cigarette/Vaping Electronic Cigarette Use: Never. Tobacco Never tobacco user Tobacco Use:. [Electronically Signed on: 09/29/2022 14:36 PST] Miladis Irene [Verified on: 09/29/2022 14:36 PST] Miladis Irene Patient Care team information Personnel Name: MD Terrell Arellano Address: Address: [address] [place] [address], [place] [address]- [place] Name: Carmela Hester Name: Willa Ashton
--- NOTE | 2022-11-21 19:49 | Internal Med History&Physical ---
HPI History of Present Illness Patient information: Note initiated : 11/21/22 at 7:42 pm Service Date, if different from initiated Date: [] Patient: Len Polo a 87 y/o M admitted on 11/21/22 for Left Hip Fracture. Chief Complaint: [] History of present illness: Mr. Polo is a 87 year old M Presents to the outside facility for fall and left hip pain. Patient was getting out of his wheelchair when he fell onto his left side and immediately had increased pain. Patient said He did have pain though that preceded the fall. Patient is a poor historian states it is. He is living facility. Patient has a history of Parkinson's hypothyroidism possibly hypertension. History of prostate cancer. Per some old notes he had episode of aspiration pneumonia last fall. Patient was transferred to [facility] after discussion with Dr. Oneal for hip repair. Patient denies being sick recently. Denies any nausea vomiting chest pain shortness of breath. He does have a chronic cough. Review of Systems: Pertinent positives as above. Denies head ache/fever/chills/nausea/vomiting/chest or abdominal pain/cough/dyspnea/diarrhea. Remaining 10 point review of system reviewed negative PFSH PFSH All Active Problems (Updated 12/24/21 @ 10:19 by Sariah Bravo) Thoracic back pain (Acute) Hypothyroidism (Chronic) COPD (chronic obstructive pulmonary disease) (Chronic) Pneumonia (Chronic) Congestive heart failure (Chronic) Coronary artery disease (Chronic) Hypertension (Chronic) Hyperlipidemia (Chronic) Degenerative joint disease (Chronic) Other low back pain (Chronic) Medical History (Updated 12/24/21 @ 10:19 by Sariah Bravo) Congestive heart failure COPD (chronic obstructive pulmonary disease) Coronary artery disease Degenerative joint disease Hyperlipidemia Hypertension Hypothyroidism Other low back pain Pneumonia Thoracic back pain Surgical History (Updated 12/24/21 @ 10:11 by Sariah Bravo) History of back surgery (~2007) L4-L5-S1 History of right hip replacement (~2001) History of right inguinal hernia repair (~1993) History of tonsillectomy History of umbilical hernia repair (~2002) History of vasectomy History of vertebroplasty L2 Family History (Updated 12/24/21 @ 10:11 by Sariah Bravo) Mother Hypertension Father Heart disease Social History (Updated 12/24/21 @ 10:12 by Sariah Bravo) marital status: education level: college physical activity: none smoking status: Never smoker alcohol intake frequency: a few times a month substance use type: does not use seatbelt use: always MEDS/ALLERGIES Home Medications and Allergies Home Medications Medication Instructions Recorded Confirmed Type aspirin 81 mg tablet,delayed 81 mg PO QDAY 12/23/21 12/23/21 History release carbidopa 25 mg-levodopa 100 mg 1 tab PO 12/23/21 12/23/21 History tablet carvedilol 3.125 mg tablet 3.125 mg PO HS 12/23/21 12/23/21 History citalopram 20 mg tablet 20 mg PO QDAY 12/23/21 12/23/21 History levothyroxine 75 mcg tablet 75 mcg PO QDAY 12/23/21 12/23/21 History pramipexole 0.25 mg tablet mg PO 12/23/21 12/23/21 History triamterene 37.5 cap PO 12/23/21 12/23/21 History mg-hydrochlorothiazide 25 mg capsule Allergies Allergy/AdvReac Type Severity Reaction Status Date / Time No Known Drug Allergies Allergy Verified 12/23/21 14:39 EXAM Constitutional Vitals: Temp Pulse Resp BP Pulse Ox O2 Del Method 97.7 F 84 20 137/78 94 Room Air 11/21/22 19:32 11/21/22 19:32 11/21/22 19:32 11/21/22 19:32 11/21/22 19:32 11/21/22 19:32 Exam: General: Alert, Awake, No acute Distress Eyes/N/T: EOMI, PERRL, dry MM Head/Neck: neck supple, normocephalic atraumatic CV: RRR, No murmurs, normal s1/s2 Pulm: Clear b/l, no wheezing/rhonchi/rales Abd: soft, nontender, +BS x4 Ext: no clubbing/cyanosis, 1+ RLE and 2+ LLE edema Neuro: Alert, hearing impairment no focal deficits, moves all extremities, CN 2- 12 grossly intact, sensations intact b/l upper/lower Skin: warm/dry A/P Narrative A/P Narrative: A: *Left hip fracture: *Parkinson's: *HTN: *Depression: *Hypothyroidism: *Hyponatremia: check tsh *Hypovolemia: *Anemia: P: -Dr. Oneal for orthopedic surgery -Preop eval -Pending cxr/ekg/ua -pending labs -IVF, monitor follow-up electrolytes and sodium volume status - -Home medication reconciliation -PT/OT -CM for placement -ppx: SCD and postop per Ortho Time Spent With Patient Time: Total time spent is greater than 50% in coordination of care (as documented) at patient's floor/unit and/or counseling patient: Initial: Total time with patient: 75 - 90 minutes
[2022-11-21] MEDS ORDERED: OLANZapine 5 MG TABLET PO PRN (19:52)
[2022-11-21] MEDS ORDERED: POTASSIUM CHLORIDE 20 MEQ TABLET PO PRN ×2 (19:52)
[2022-11-21] MEDS ORDERED: LABETALOL 5 MG/ML ML IV PRN (19:52)
[2022-11-21] MEDS ORDERED: SENNOSIDES 1 TABLET PO PRN (19:52)
[2022-11-21] MEDS ORDERED: IPRATROPIUM/ALBUTEROL 3 ML AMPUL.NEB NEB PRN (19:52)
[2022-11-21] MEDS ORDERED: ONDANSETRON 4 MG/2 ML VIAL IV PRN (19:52)
[2022-11-21] MEDS ORDERED: ACETAMINOPHEN 325 MG TABLET PO PRN (19:52)
[2022-11-21] MEDS ORDERED: MAGNESIUM SULFATE 2 GM/50 ML BAG IV PRN (19:52)
[2022-11-21] MEDS ORDERED: POLYETHYLENE GLYCOL 3350 17 GM PACKET PO PRN (19:52)
[2022-11-21] MEDS ORDERED: POTASSIUM CHLORIDE 40 MEQ in DEXTROSE 5% IN WATER 500 ML IV PRN (19:52)
[2022-11-21] MEDS ORDERED: 0.9 % SODIUM CHLORIDE 1,000 ML IV ONE (19:54)
[2022-11-21 20:58] LABS: Basophils # (Auto) 0.01 K/mcL (0.00-0.30); Basophils % (Auto) 0.1 % (0.0-2.0); Eosinophils # (Auto) 0.02 K/mcL (0.00-0.70); Eosinophils % (Auto) 0.3 % (0.0-7.0); Hematocrit 37.5 % (40.1-51.0); Hemoglobin 12.4 g/dL (13.7-17.5); Lymphocytes # (Auto) 0.43 K/mcL (1.50-4.80); Lymphocytes % (Auto) 5.7 % (15.5-49.0); Mean Cell Volume 93.5 fL (80.0-100.0); Mean Corpuscular HGB Conc 33.1 g/dL (31.0-36.0); Mean Platelet Volume 9.6 fL (8.8-12.5); Monocytes # (Auto) 0.51 K/mcL (0.10-0.90); Monocytes % (Auto) 6.8 % (1.0-12.0); Platelet Count 138 K/mcL (140-440); RBC 4.01 M/mcL (4.63-6.08); Red Cell Distribution Width 14.4 % (11.5-14.5); WBC 7.5 K/mcL (4.5-11.0)
[2022-11-21 21:18] LABS: ALT/SGPT < 5 U/L (<40); AST/SGOT 35 U/L (<40); Albumin 3.7 gm/dL (3.2-5.2); Albumin/Globulin Ratio 2.1 (1.0-2.3); Alkaline Phosphatase 265 U/L (39-117); Bilirubin,Direct 0.2 mg/dL (<0.3); Bilirubin,Total 0.7 mg/dL (0.1-1.0); Blood Urea Nitrogen 33 mg/dL (8-23); Calcium 9.4 mg/dL (8.6-10.4); Carbon Dioxide 28 mmol/L (22-30); Chloride 95 mmol/L (96-108); Globulin 1.8 gm/dL (2.2-3.7); Glomerular Filtration Rate 59; Glucose 105 mg/dL (70-105); Lactate Dehydrogenase 585 U/L (135-225); Phosphorous 3.3 mg/dL (2.5-4.5); Triglycerides 52 mg/dL (<150); Uric Acid 5.3 mg/dL (2.5-8.0)
[2022-11-21] MEDS ORDERED: 0.9 % SODIUM CHLORIDE 2,000 ML IV ONE (21:46)
[2022-11-21] MEDS: DOCUSATE SODIUM 100 MG CAPSULE PO SCH (23:17)
[2022-11-22] MEDS: 0.9 % SODIUM CHLORIDE 10 ML SYRINGE IV SCH ×4 (00:31→21:22)
[2022-11-22 02:44] LABS: Appearance,Urine CLEAR (Clear); Bilirubin,Urine NEGATIVE (Negative); Color,Urine LT. YELLOW; Culture Indicated,Urine No; Glucose,Urine (UA) NEGATIVE (Negative); Ketones,Urine NEGATIVE (Negative); Leukocyte Esterase,Urine TRACE /uL (Negative); Mucus,Urine FEW /hpf; Nitrate,Urine NEGATIVE (Negative); PH,Urine 5.5 (5.0-9.0); Protein,Urine NEGATIVE (Negative); Urine Blood SMALL ery/mcL (Negative); Urine RBC 10 /hpf (0-3); Urine Squamous Epithelial Cell < 1 /hpf (0-4); Urine WBC 7 /hpf (0-4); Urobilinogen,Urine Normal
--- NOTE | 2022-11-22 04:00 | XRay Report ---
CLINICAL INFORMATION: Preop history of COPD and CHF COMPARISON: 06/21/2021 TECHNIQUE: Portable FINDINGS: Moderate cardiomegaly is unchanged. Mildly ectatic thoracic aorta is stable as well. The remaining mediastinum and pulmonary vessels are normal. COPD changes and minor bibasilar atelectasis noted. There are no infiltrates or effusions. IMPRESSION: Moderate stable cardiomegaly and COPD. No acute disease Interpreted and Authenticated by: Rufino Wilkins 11/22/22
[2022-11-22] MEDS: morphine 4 MG/ML VIAL IV PRN (04:02)
[2022-11-22] MEDS ORDERED: ceFAZolin 2 GM in DEXTROSE 5% IN WATER 50 ML IV SCH ×3 (06:45→15:00)
[2022-11-22] MEDS ORDERED: SCOPOLAMINE 1 PATCH PATCH TOPICAL PRN (07:30)
[2022-11-22] MEDS ORDERED: KETAMINE 50 MG/ML Syringe (ANEST) IV ONE (07:35)
[2022-11-22] MEDS ORDERED: LIDOCAINE HCL/PF 100 MG/5 ML SYRINGE IV ONE (07:35)
[2022-11-22] MEDS ORDERED: DEXAMETHASONE 10 MG/ML VIAL ONE (07:35)
[2022-11-22] MEDS ORDERED: PHENYLephrine 1 MG/10 ML SYRINGE (ANEST) ONE (07:35)
[2022-11-22] MEDS ORDERED: PROPOFOL 200 MG/20 ML VIAL IV ONE (07:35)
[2022-11-22] MEDS ORDERED: fentaNYL 100 MCG/2 ML VIAL IV ONE (07:35)
[2022-11-22] MEDS ORDERED: ePHEDrine 50 MG/5 ML SYRINGE (ANEST) IV ONE (07:35)
[2022-11-22] MEDS ORDERED: ONDANSETRON 4 MG/2 ML VIAL ONE (07:35)
[2022-11-22] MEDS ORDERED: TRANEXAMIC ACID 1,000 MG/10 ML VIAL ONE (07:35)
[2022-11-22] MEDS ORDERED: LACTATED RINGERS 250 ML IV PRN (08:19)
[2022-11-22] MEDS ORDERED: ACETAMINOPHEN 1,000 MG/100 ML BAG IV ONE (08:19)
[2022-11-22] MEDS ORDERED: MEPERIDINE 25 MG/ML VIAL IV PRN (08:19)
[2022-11-22] MEDS ORDERED: PROMETHAZINE 25 MG/ML VIAL IV PRN (08:19)
[2022-11-22] MEDS ORDERED: ONDANSETRON 4 MG/2 ML VIAL IV PRN (08:19)
[2022-11-22] MEDS ORDERED: fentaNYL 100 MCG/2 ML VIAL IV PRN (08:19)
[2022-11-22] MEDS ORDERED: IPRATROPIUM/ALBUTEROL 3 ML AMPUL.NEB NEB PRN (08:19)
[2022-11-22] MEDS ORDERED: diphenhydrAMINE 50 MG/ML VIAL IV PRN (08:19)
[2022-11-22] MEDS ORDERED: NALOXONE HCL 0.4 MG/ML VIAL IV PRN (08:19)
[2022-11-22] MEDS ORDERED: LACTATED RINGERS 1,000 ML IV SCH (08:30)
--- NOTE | 2022-11-22 08:51 | Brief Operative Note ---
Brief Operative Note Date of procedure: 11/22/22 Pre-op diagnosis: Left hip intertrochanteric hip fracture Post-op diagnosis: other (Left hip reverse obliquity subtrochanteric hip fracture, possible segmental femoral neck fracture) Procedure: Open treatment internal fixation of left subtrochanteric reverse obliquity fx w long gamma nail Grafts/Implants: Yes (400 x 13mm 125 deg long shanna gamma nail, 105mm lag screw) Anesthesia: GLMA Findings: reverse obliquity subtroch femur fx, possible femoral neck segmental fracture Complications: none Surgeon: Sal Oneal Medical Imaging Specialist: Ajay Kimbrough Estimated blood loss (cc): 200 Specimens Removed/Pathology: none sent Condition: stable Disposition: PACU
[2022-11-22] MEDS ORDERED: FLEETS ADULT ENEMA PR PRN (08:56)
--- NOTE | 2022-11-22 09:03 | Internal Med Progress Note ---
SUBJECTIVE Subjective Patient information: Note initiated : 11/22/22 at 8:59 am Service Date, if different from initiated Date: [] Patient: Len Polo a 87 y/o M admitted on 11/21/22 for Left Hip Fracture. Chief Complaint: [] Interval history: History of present illness: Mr. Polo is a 87 year old M Presents to the outside facility for fall and left hip pain. Patient was getting out of his wheelchair when he fell onto his left side and immediately had increased pain. Patient said He did have pain though that preceded the fall. Patient is a poor historian states it is. He is living facility. Patient has a history of Parkinson's hypothyroidism possibly hypertension. History of prostate cancer. Per some old notes he had episode of aspiration pneumonia last fall. Patient was transferred to [facility] after discussion with Dr. Oneal for hip repair. Patient denies being sick recently. Denies any nausea vomiting chest pain short ness of breath. He does have a chronic cough. 11/22 Patient postop and still sedated from procedure. Review of systems unable to obtain given sedation. Constitutional Vitals: Vital Signs Temp Pulse Resp BP Pulse Ox O2 Del Method 97.4 F 72 17 121/64 90 Room Air 11/22/22 04:07 11/22/22 04:07 11/22/22 04:07 11/22/22 04:07 11/22/22 04:07 11/22/22 04:07 Period Temp Pulse Resp BP Sys/Douglass Pulse Ox O2 Del Method O2 Flow Rate Last 24 Hr 97.4 F-97.7 F 72-84 17-20 121-139/64-82 90-94 Room Air-Room Air Intake and Output 11/21/22 11/22/22 11/22/22 19:59 03:59 11:59 Intake Total 100 Output Total 750 Balance -650 Weight 76.748 kg Intake & Output: Intake & Output 11/21/22 11/22/22 11/22/22 19:59 03:59 11:59 Intake Total 100 Output Total 750 Balance -650 Weight 76.748 kg Intake: Oral 100 Output: Urine Catheter Amount 750 Other: Urine Appearance Clear Clear Urine Color Dark Yellow Dark Yellow Exam: General: Sleeping, Awake, No acute Distress Eyes/N/T: EOMI, Head/Neck: neck supple, CV: RRR, No murmurs, Pulm: Clear b/l, no wheezing/rhonchi/rales Abd: soft, nontender, +BS x4 Ext: no clubbing/cyanosis, 1+ RLE and 2+ LLE edema Neuro: Sleeping, hearing impairment no focal deficits, moves all extremities spontaneously Skin: warm/dry OBJ DATA Labs 11/21/22 20:16 11/21/22 20:16 Labs: Abnormal Lab Results 11/22/22 11/21/22 11/21/22 02:01 20:16 20:16 RBC 4.01 L Hgb 12.4 L Hct 37.5 L Plt Count 138 L Immature Gran % (Auto) 1.1 H Neut % (Auto) 86.0 H Lymph % (Auto) 5.7 L Lymph # (Auto) 0.43 L Immature Gran # 0.08 H Sodium 130 L Chloride 95 L Anion Gap 7.0 L BUN 33 H Alkaline Phosphatase 265 H Lactate Dehydrogenase 585 H Total Protein 5.5 L Globulin 1.8 L Urine Occult Blood Small A Ur Leukocyte Esterase Trace A Urine RBC 10 H Urine WBC 7 H Urine Mucus Few A Meds: Medications Acetaminophen (Acetaminophen 325 Mg Tablet) 650 mg PO Q6HP PRN PRN Reason: PAIN/FEVER > 101 Hydrocodone Bitart/Acetaminophen (Hydrocodone/Apap 5/325mg Tablet) 1 tab PO Q4HP PRN PRN Reason: PAIN LEVEL 3-6 Albuterol/Ipratropium (Ipratropium/Albuterol 3 Ml Ampul.Neb) 3 ml NEB Q4HP PRN PRN Reason: Shortness Of Breath Albuterol/Ipratropium (Ipratropium/Albuterol 3 Ml Ampul.Neb) 3 ml NEB ONCE PRN PRN Reason: Wheezing Stop: 11/22/22 10:19 Diphenhydramine HCl (Diphenhydramine 50 Mg/Ml Vial) 25 mg IV ONCE PRN PRN Reason: ITCH Stop: 11/22/22 10:20 Docusate Sodium (Docusate Sodium 100 Mg Capsule) 100 mg PO BID MASOUD Last Admin: 11/21/22 23:17 Dose: Not Given Fentanyl (Fentanyl 100 Mcg/2 Ml Vial) 25 mcg IV Q2M PRN PRN Reason: Pain Stop: 11/22/22 10:19 Magnesium Sulfate (Magnesium Sulfate) 2 gm in 50 mls @ 50 mls/hr IV UD PRN PRN Reason: Magnesium </= 1.6 Potassium Chloride 40 meq/ (Dextrose) 520 mls @ 130 mls/hr IV UD PRN PRN Reason: Potassium < 3 Sodium Chloride (Sodium Chloride 0.9%) 2,000 mls @ 75 mls/hr IV .Q24H ONE Stop: 11/22/22 19:53 Last Admin: 11/22/22 00:32 Dose: 75 mls/hr Cefazolin Sodium 2 gm/ (Dextrose) 50 mls @ 100 mls/hr IV PREOP MASOUD; Protocol Stop: 11/22/22 13:00 Last Admin: 11/22/22 07:27 Dose: 100 mls/hr Lactated Ringer's (Lactated Ringers) 1,000 mls @ 0 mls/hr IV PRN PRN PRN Reason: Hypovolemia Stop: 11/22/22 10:19 Lactated Ringer's (Lactated Ringers) 1,000 mls @ 20 mls/hr IV .Q24H MASOUD Stop: 11/22/22 10:19 Labetalol HCl (Labetalol 5 Mg/Ml Ml) 0 mg IV Q2HP PRN PRN Reason: Hypertension Meperidine HCl (Meperidine 25 Mg/Ml Vial) 12.5 mg IV Q5M PRN PRN Reason: Shivering Stop: 11/22/22 10:19 Morphine Sulfate (Morphine 4 Mg/Ml Vial) 0 mg IV Q3HP PRN PRN Reason: Pain Last Admin: 11/22/22 04:02 Dose: 2 mg Naloxone HCl (Naloxone Hcl 0.4 Mg/Ml Vial) 0.1 mg IV Q2MIN PRN PRN Reason: Opiate Reversal Stop: 11/22/22 10:19 Olanzapine (Olanzapine 5 Mg Tablet) 5 mg PO Q6HP PRN PRN Reason: Agitation Ondansetron HCl (Ondansetron 4 Mg/2 Ml Vial) 4 mg IV Q4HP PRN PRN Reason: Nausea And Vomiting Ondansetron HCl (Ondansetron 4 Mg/2 Ml Vial) 4 mg IV ONCE PRN PRN Reason: Nausea And Vomiting Stop: 11/22/22 10:19 Polyethylene Glycol (Polyethylene Glycol 3350 17 Gm Packet) 17 gm PO DAILYP PRN PRN Reason: Constipation Potassium Chloride (Potassium Chloride 20 Meq Tablet) 40 meq PO UD PRN PRN Reason: Potassium < 3 Potassium Chloride (Potassium Chloride 20 Meq Tablet) 40 meq PO UD PRN PRN Reason: Potssium is 3-3.5 Promethazine HCl (Promethazine 25 Mg/Ml Vial) 6.25 mg IV Q15M PRN PRN Reason: Nausea And Vomiting Stop: 11/22/22 10:19 Scopolamine (Scopolamine 1 Patch Patch) 1 patch TOPICAL PREOP PRN PRN Reason: Nausea And Vomiting Stop: 11/22/22 23:59 Senna (Sennosides 1 Tablet) 2 tab PO DAILYP PRN PRN Reason: Constipation Sodium Chloride (0.9 % Sodium Chloride 10 Ml Syringe) 10 ml IV Q8 MASOUD Last Admin: 11/22/22 06:03 Dose: Not Given A/P Narrative A/P Narrative: A: *Left hip fracture: s/p ORIF (11/22) *Parkinson's: *HTN: *Depression: *Hypothyroidism: tsh wnl *Hyponatremia: *Hypovolemia: *Anemia: P: -Dr. Oneal for orthopedic surgery -IVF, monitor follow-up electrolytes and sodium volume status -monitor volume status -hold home ASA until post surgery -hold home lasix for now -PT/OT -CM for placement -ppx: postop per Ortho lovenox Time Spent With Patient Time: Total time spent is greater than 50% in coordination of care (as documented) at patient's floor/unit and/or counseling patient: Subsequent: Total time with patient: 35 - 49 minutes QUALITY VTE Deep Vein Thrombosis/Pulmonary Embolism Present on Admission: Yes
[2022-11-22] MEDS: LEVOTHYROXINE 75 MCG TABLET PO SCH (10:20)
[2022-11-22] MEDS: CITALOPRAM 20 MG TABLET PO SCH (10:20)
[2022-11-22] MEDS: DOCUSATE SODIUM 100 MG CAPSULE PO SCH ×2 (10:20→21:21)
[2022-11-22] MEDS: CARBIDOPA/LEVODOPA 25/100 TABLET PO SCH ×3 (10:21→21:21)
[2022-11-22] MEDS: PRAMIPEXOLE 0.25 MG TABLET PO SCH ×2 (10:21→21:21)
[2022-11-22 12:38] LABS: Blood Urea Nitrogen 33 mg/dL (8-23); Calcium 8.9 mg/dL (8.6-10.4); Carbon Dioxide 20 mmol/L (22-30); Chloride 102 mmol/L (96-108); Glomerular Filtration Rate 66; Glucose 137 mg/dL (70-105)
--- NOTE | 2022-11-22 13:50 | XRay Report ---
CLINICAL INFORMATION: Basicervical fracture left hip COMPARISON: None. FINDINGS: Digital images from the OR show basicervical fracture reduced to anatomic alignment and transfixed by gamma nail. Left hip is normal in width and alignment. IMPRESSION: ORIF basicervical fracture anatomic alignment. Total fluoroscopy time 1.2 minutes Interpreted and Authenticated by: Rufino Wilkins 11/22/22
[2022-11-22] MEDS: ceFAZolin 1 GM VIAL IV SCH ×2 (14:52→23:30)
[2022-11-22] MEDS: HYDROcodone/APAP 5/325MG TABLET PO PRN (17:29)
[2022-11-22] MEDS: traZODone HCL 50 MG TABLET PO SCH (21:21)
[2022-11-22] MEDS: QUEtiapine 25 MG TABLET PO SCH (21:26)
[2022-11-23] MEDS: 0.9 % SODIUM CHLORIDE 10 ML SYRINGE IV SCH ×3 (06:04→22:29)
[2022-11-23] MEDS: HYDROcodone/APAP 5/325MG TABLET PO PRN ×2 (06:43→20:56)
[2022-11-23 07:21] LABS: ALT/SGPT < 5 U/L (<40); AST/SGOT 16 U/L (<40); Albumin 2.8 gm/dL (3.2-5.2); Albumin/Globulin Ratio 1.6 (1.0-2.3); Alkaline Phosphatase 179 U/L (39-117); Bilirubin,Direct < 0.2 mg/dL (0-0.3); Bilirubin,Total 0.4 mg/dL (0.1-1.0); Blood Urea Nitrogen 33 mg/dL (8-23); Calcium 8.9 mg/dL (8.6-10.4); Carbon Dioxide 28 mmol/L (22-30); Chloride 99 mmol/L (96-108); Globulin 1.8 gm/dL (2.2-3.7); Glomerular Filtration Rate 59; Glucose 110 mg/dL (70-105); Lactate Dehydrogenase 186 U/L (135-225); Triglycerides 80 mg/dL (<150); Uric Acid 6.2 mg/dL (2.5-8.0)
[2022-11-23] MEDS: DOCUSATE SODIUM 100 MG CAPSULE PO SCH ×2 (08:03→20:55)
[2022-11-23] MEDS: ENOXAPARIN 40 MG/0.4 ML SYRINGE SQ SCH (08:04)
[2022-11-23] MEDS: CARBIDOPA/LEVODOPA 25/100 TABLET PO SCH ×3 (08:04→20:55)
[2022-11-23] MEDS: PRAMIPEXOLE 0.25 MG TABLET PO SCH ×2 (08:04→20:55)
[2022-11-23] MEDS: CITALOPRAM 20 MG TABLET PO SCH (08:04)
[2022-11-23] MEDS: LEVOTHYROXINE 75 MCG TABLET PO SCH (08:04)
[2022-11-23] MEDS: morphine 4 MG/ML VIAL IV PRN (08:16)
--- NOTE | 2022-11-23 09:17 | Internal Med Progress Note ---
SUBJECTIVE Subjective Patient information: Note initiated : 11/23/22 at 9:15 am Service Date, if different from initiated Date: [] Patient: Len Polo a 87 y/o M admitted on 11/21/22 for Left Hip Fracture. Chief Complaint: [] Interval history: History of present illness: Mr. Polo is a 87 year old M Presents to the outside facility for fall and left hip pain. Patient was getting out of his wheelchair when he fell onto his left side and immediately had increased pain. Patient said He did have pain though that preceded the fall. Patient is a poor historian states it is. He is living facility. Patient has a history of Parkinson's hypothyroidism possibly hypertension. History of prostate cancer. Per some old notes he had episode of aspiration pneumonia last fall. Patient was transferred to [facility] after discussion with Dr. Oneal for hip repair. Patient denies being sick recently. Denies any nausea vomiting chest pain short ness of breath. He does have a chronic cough. 11/22 Patient postop and still sedated from procedure. 11/23 Slept okay. Forgetful at times. More awake alert today. No overnight event or new complaints. Follow-up H&H. Monitor electrolytes. Review of Systems: denies headache/fever/chills/nausea/vomiting/chest or abdominal pain/cough/dyspnea/diarrhea. Otherwise see above. Constitutional Vitals: Vital Signs Temp Pulse Resp BP Pulse Ox O2 Del Method O2 Flow Rate 97.4 F 62 14 113/55 90 Room Air 1 11/23/22 08:00 11/23/22 08:00 11/23/22 08:00 11/23/22 08:00 11/23/22 08:00 11/23/22 08:00 11/23/22 04:05 Period Temp Pulse Resp BP Sys/Douglass Pulse Ox O2 Del Method O2 Flow Rate Last 24 Hr 97.2 F-98.0 F 62-78 14-19 110-138/52-91 83-100 Nasal Cannula- Simple Mask 1-6 Intake and Output 11/22/22 11/23/22 11/23/22 19:59 03:59 11:59 Intake Total 120 2000 450 Output Total 750 Balance 120 2000 -300 Weight 72.847 kg Intake & Output: Intake & Output 11/22/22 11/23/22 11/23/22 19:59 03:59 11:59 Intake Total 120 1999 450 Output Total 750 Balance 120 1999 -300 Weight 72.847 kg Intake: IV 2000 Sodium Chloride 0.9% 2,000 ml @ 2000 75 mls/hr IV .Q24H ONE Rx#: [id number] Oral 120 450 Output: Urine Catheter Amount 750 Other: Meal Dinner Percent of Meal Consumed 25% Feeding Ability Assist with Tray Set Up Urine Appearance Clear Uretheral (Combs) Clear Clear Urine Color Dark Yellow Dark Yellow Uretheral (Combs) Dark Yellow Yellow Urine Odor Normal Exam: General: Awake, No acute Distress Eyes/N/T: EOMI, Head/Neck: neck supple, CV: RRR, No murmurs, Pulm: Clear b/l, no wheezing/rhonchi/rales Abd: soft, nontender, +BS x4 Ext: no clubbing/cyanosis, 1+ RLE and 2+ LLE edema Neuro: Alert, hearing impairment no focal deficits, moves all extremities spon taneously Skin: warm/dry OBJ DATA Labs 11/21/22 20:16 11/23/22 05:22 Labs: Abnormal Lab Results 11/23/22 11/22/22 11/22/22 05:22 11:35 02:01 RBC Hgb Hct Plt Count Immature Gran % (Auto) Neut % (Auto) Lymph % (Auto) Lymph # (Auto) Immature Gran # Sodium 132 L Chloride Carbon Dioxide 20 L Anion Gap 5.0 L BUN 33 H 33 H Glucose 110 H 137 H Alkaline Phosphatase 179 H Lactate Dehydrogenase Total Protein 4.6 L Albumin 2.8 L Globulin 1.8 L Urine Occult Blood Small A Ur Leukocyte Esterase Trace A Urine RBC 10 H Urine WBC 7 H Urine Mucus Few A 11/21/22 11/21/22 20:16 20:16 RBC 4.01 L Hgb 12.4 L Hct 37.5 L Plt Count 138 L Immature Gran % (Auto) 1.1 H Neut % (Auto) 86.0 H Lymph % (Auto) 5.7 L Lymph # (Auto) 0.43 L Immature Gran # 0.08 H Sodium 130 L Chloride 95 L Carbon Dioxide Anion Gap 7.0 L BUN 33 H Glucose Alkaline Phosphatase 265 H Lactate Dehydrogenase 585 H Total Protein 5.5 L Albumin Globulin 1.8 L Urine Occult Blood Ur Leukocyte Esterase Urine RBC Urine WBC Urine Mucus Meds: Medications Acetaminophen (Acetaminophen 325 Mg Tablet) 650 mg PO Q6HP PRN PRN Reason: PAIN/FEVER > 101 Hydrocodone Bitart/Acetaminophen (Hydrocodone/Apap 5/325mg Tablet) 1 tab PO Q4HP PRN PRN Reason: PAIN LEVEL 3-6 Last Admin: 11/23/22 06:43 Dose: 1 tab Albuterol/Ipratropium (Ipratropium/Albuterol 3 Ml Ampul.Neb) 3 ml NEB Q4HP PRN PRN Reason: Shortness Of Breath Carbidopa/Levodopa (Carbidopa/Levodopa 25/100 Tablet) 1 tab PO TID [facility] Last Admin: 11/23/22 08:04 Dose: 1 tab Citalopram Hydrobromide (Citalopram 20 Mg Tablet) 40 mg PO DAILY [facility] Last Admin: 11/23/22 08:04 Dose: 40 mg Docusate Sodium (Docusate Sodium 100 Mg Capsule) 100 mg PO BID [facility] Last Admin: 11/23/22 08:03 Dose: 100 mg Enoxaparin Sodium (Enoxaparin 40 Mg/0.4 Ml Syringe) 40 mg SQ DAILY [facility] Last Admin: 11/23/22 08:04 Dose: 40 mg Magnesium Sulfate (Magnesium Sulfate) 2 gm in 50 mls @ 50 mls/hr IV UD PRN PRN Reason: Magnesium </= 1.6 Potassium Chloride 40 meq/ (Dextrose) 520 mls @ 130 mls/hr IV UD PRN PRN Reason: Potassium < 3 Labetalol HCl (Labetalol 5 Mg/Ml Ml) 0 mg IV Q2HP PRN PRN Reason: Hypertension Levothyroxine Sodium (Levothyroxine 75 Mcg Tablet) 75 mcg PO QAMAC [facility] Last Admin: 11/23/22 08:04 Dose: 75 mcg Morphine Sulfate (Morphine 4 Mg/Ml Vial) 0 mg IV Q3HP PRN PRN Reason: Pain Last Admin: 11/23/22 08:16 Dose: 2 mg Olanzapine (Olanzapine 5 Mg Tablet) 5 mg PO Q6HP PRN PRN Reason: Agitation Ondansetron HCl (Ondansetron 4 Mg/2 Ml Vial) 4 mg IV Q4HP PRN PRN Reason: Nausea And Vomiting Polyethylene Glycol (Polyethylene Glycol 3350 17 Gm Packet) 17 gm PO DAILYP PRN PRN Reason: Constipation Potassium Chloride (Potassium Chloride 20 Meq Tablet) 40 meq PO UD PRN PRN Reason: Potassium < 3 Potassium Chloride (Potassium Chloride 20 Meq Tablet) 40 meq PO UD PRN PRN Reason: Potssium is 3-3.5 Pramipexole Dihydrochloride (Pramipexole 0.25 Mg Tablet) 0.25 mg PO BID [facility] Last Admin: 11/23/22 08:04 Dose: 0.25 mg Quetiapine Fumarate (Quetiapine 25 Mg Tablet) 50 mg PO QHS [facility] Last Admin: 11/22/22 21:26 Dose: 50 mg Senna (Sennosides 1 Tablet) 2 tab PO DAILYP PRN PRN Reason: Constipation Sodium Biphosphate/Sodium Phosphate (Fleets Adult Enema) 1 dose [place] Q3-4DAYS PRN PRN Reason: Constipation Sodium Chloride (0.9 % Sodium Chloride 10 Ml Syringe) 10 ml IV Q8 [facility] Last Admin: 11/23/22 06:04 Dose: 10 ml Trazodone HCl (Trazodone Hcl 50 Mg Tablet) 50 mg PO QHS [facility] Last Admin: 11/22/22 21:21 Dose: 50 mg A/P Narrative A/P Narrative: A: *Left hip fracture: s/p ORIF (11/22) *Parkinson's: *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 Oneal for orthopedic surgery -IVF, monitor follow-up electrolytes and sodium volume status -f/u H&H -monitor volume status -hold home lasix for now -PT/OT -dysphagia diet -CM for placement -ppx: postop per Ortho lovenox Time Spent With Patient Time: Total time spent is greater than 50% in coordination of care (as documented) at patient's floor/unit and/or counseling patient: Subsequent: Total time with patient: 35 - 49 minutes QUALITY VTE Deep Vein Thrombosis/Pulmonary Embolism Present on Admission: Yes
--- NOTE | 2022-11-23 09:53 | Orthopedic Progress Note ---
SUBJECTIVE Subjective Patient information: Note initiated : 11/23/22 at 9:50 am Service Date, if different from initiated Date: [] Patient: Len Polo 87 y/o M admitted on 11/21/22 for Left Hip Fracture. Chief Complaint: Mild to moderate L hip pain. Principal diagnosis: L hip IT fx Constitutional Vitals: Vital Signs Temp Pulse Resp BP Pulse Ox O2 Del Method O2 Flow Rate 97.4 F 62 14 113/55 90 Room Air 1 11/23/22 08:00 11/23/22 08:00 11/23/22 08:00 11/23/22 08:00 11/23/22 08:00 11/23/22 08:00 11/23/22 04:05 Period Temp Pulse Resp BP Sys/Douglass Pulse Ox O2 Del Method O2 Flow Rate Last 24 Hr 97.2 F-98.0 F 62-78 14-19 110-130/52-91 90-94 Nasal Cannula- Room Air 1-3 Intake and Output 11/22/22 11/23/22 11/23/22 19:59 03:59 11:59 Intake Total 120 2000 450 Output Total 750 Balance 120 2000 -300 Weight 160 lb 9.6 oz Intake & Output: Intake & Output 11/22/22 11/23/22 11/23/22 19:59 03:59 11:59 Intake Total 120 2000 450 Output Total 750 Balance 120 2000 -300 Weight 160 lb 9.6 oz Intake: IV 2000 Sodium Chloride 0.9% 2,000 ml @ 2000 75 mls/hr IV .Q24H ONE Rx#: [id number] Oral 120 450 Output: Urine Catheter Amount 750 Other: Meal Dinner Percent of Meal Consumed 25% Feeding Ability Assist with Tray Set Up Urine Appearance Clear Uretheral (Combs) Clear Clear Urine Color Dark Yellow Dark Yellow Uretheral (Combs) Dark Yellow Yellow Urine Odor Normal Additional findings Additional findings: Pt confused Bandages c/d/i NVI-distal OBJ DATA Labs 11/21/22 20:16 11/23/22 05:22 Labs: Abnormal Lab Results 11/23/22 11/22/22 11/22/22 05:22 11:35 02:01 RBC Hgb Hct Plt Count Immature Gran % (Auto) Neut % (Auto) Lymph % (Auto) Lymph # (Auto) Immature Gran # Sodium 132 L Chloride Carbon Dioxide 20 L Anion Gap 5.0 L BUN 33 H 33 H Glucose 110 H 137 H Alkaline Phosphatase 179 H Lactate Dehydrogenase Total Protein 4.6 L Albumin 2.8 L Globulin 1.8 L Urine Occult Blood Small A Ur Leukocyte Esterase Trace A Urine RBC 10 H Urine WBC 7 H Urine Mucus Few A 11/21/22 11/21/22 20:16 20:16 RBC 4.01 L Hgb 12.4 L Hct 37.5 L Plt Count 138 L Immature Gran % (Auto) 1.1 H Neut % (Auto) 86.0 H Lymph % (Auto) 5.7 L Lymph # (Auto) 0.43 L Immature Gran # 0.08 H Sodium 130 L Chloride 95 L Carbon Dioxide Anion Gap 7.0 L BUN 33 H Glucose Alkaline Phosphatase 265 H Lactate Dehydrogenase 585 H Total Protein 5.5 L Albumin Globulin 1.8 L Urine Occult Blood Ur Leukocyte Esterase Urine RBC Urine WBC Urine Mucus Meds: Medications Acetaminophen (Acetaminophen 325 Mg Tablet) 650 mg PO Q6HP PRN PRN Reason: PAIN/FEVER > 101 Hydrocodone Bitart/Acetaminophen (Hydrocodone/Apap 5/325mg Tablet) 1 tab PO Q4HP PRN PRN Reason: PAIN LEVEL 3-6 Last Admin: 11/23/22 06:43 Dose: 1 tab Albuterol/Ipratropium (Ipratropium/Albuterol 3 Ml Ampul.Neb) 3 ml NEB Q4HP PRN PRN Reason: Shortness Of Breath Carbidopa/Levodopa (Carbidopa/Levodopa 25/100 Tablet) 1 tab PO TID [facility] Last Admin: 11/23/22 08:04 Dose: 1 tab Citalopram Hydrobromide (Citalopram 20 Mg Tablet) 40 mg PO DAILY [facility] Last Admin: 11/23/22 08:04 Dose: 40 mg Docusate Sodium (Docusate Sodium 100 Mg Capsule) 100 mg PO BID [facility] Last Admin: 11/23/22 08:03 Dose: 100 mg Enoxaparin Sodium (Enoxaparin 40 Mg/0.4 Ml Syringe) 40 mg SQ DAILY [facility] Last Admin: 11/23/22 08:04 Dose: 40 mg Magnesium Sulfate (Magnesium Sulfate) 2 gm in 50 mls @ 50 mls/hr IV UD PRN PRN Reason: Magnesium </= 1.6 Potassium Chloride 40 meq/ (Dextrose) 520 mls @ 130 mls/hr IV UD PRN PRN Reason: Potassium < 3 Labetalol HCl (Labetalol 5 Mg/Ml Ml) 0 mg IV Q2HP PRN PRN Reason: Hypertension Levothyroxine Sodium (Levothyroxine 75 Mcg Tablet) 75 mcg PO QAMAC [facility] Last Admin: 11/23/22 08:04 Dose: 75 mcg Morphine Sulfate (Morphine 4 Mg/Ml Vial) 0 mg IV Q3HP PRN PRN Reason: Pain Last Admin: 11/23/22 08:16 Dose: 2 mg Olanzapine (Olanzapine 5 Mg Tablet) 5 mg PO Q6HP PRN PRN Reason: Agitation Ondansetron HCl (Ondansetron 4 Mg/2 Ml Vial) 4 mg IV Q4HP PRN PRN Reason: Nausea And Vomiting Polyethylene Glycol (Polyethylene Glycol 3350 17 Gm Packet) 17 gm PO DAILYP PRN PRN Reason: Constipation Potassium Chloride (Potassium Chloride 20 Meq Tablet) 40 meq PO UD PRN PRN Reason: Potassium < 3 Potassium Chloride (Potassium Chloride 20 Meq Tablet) 40 meq PO UD PRN PRN Reason: Potssium is 3-3.5 Pramipexole Dihydrochloride (Pramipexole 0.25 Mg Tablet) 0.25 mg PO BID [facility] Last Admin: 11/23/22 08:04 Dose: 0.25 mg Quetiapine Fumarate (Quetiapine 25 Mg Tablet) 50 mg PO QHS [facility] Last Admin: 11/22/22 21:26 Dose: 50 mg Senna (Sennosides 1 Tablet) 2 tab PO DAILYP PRN PRN Reason: Constipation Sodium Biphosphate/Sodium Phosphate (Fleets Adult Enema) 1 dose [place] Q3-4DAYS PRN PRN Reason: Constipation Sodium Chloride (0.9 % Sodium Chloride 10 Ml Syringe) 10 ml IV Q8 [facility] Last Admin: 11/23/22 06:04 Dose: 10 ml Trazodone HCl (Trazodone Hcl 50 Mg Tablet) 50 mg PO QHS [facility] Last Admin: 11/22/22 21:21 Dose: 50 mg A/P Assessment and plan (1) Hip fracture, intertrochanteric: Status: Acute Comment: Mobilize with PT Toe touch weight bearing. f/u at [facility] in 2 weeks. Leave proximal dressing in place til f/u; distal dressing my change daily with dry dressing. Time Spent With Patient Time: Total time spent is greater than 50% in coordination of care (as documented) at patient's floor/unit and/or counseling patient: Subsequent: Total time with patient: Less than 25 minutes
[2022-11-23 10:42] LABS: Hematocrit 28.7 % (40.1-51.0); Hemoglobin 9.3 g/dL (13.7-17.5)
--- NOTE | 2022-11-23 12:11 | Discharge Summary ---
Discharge Provider Provider IMPORTANT FOLLOW-UP INFORMATION FOR PCP: Patient information: Note initiated : 11/23/22 at 12:10 pm Service Date, if different from initiated Date: [] Patient: Len Polo a 87 y/o M admitted on 11/21/22 for Left Hip Fracture. Chief Complaint: [] Date of admission: 11/21/22 19:17 Primary care physician: Jason Kim MD Consults: 11/21/22 20:04 Consult to Physician [CONS] Routine Comment: Consulting Provider: Sal Oneal Reason For Exam: Physician to Consult COURSE Hospital Course Hospital course: History of present illness: Mr. Polo is a 87 year old M Presents to the outside facility for fall and left hip pain. Patient was getting out of his wheelchair when he fell onto his left side and immediately had increased pain. Patient said He did have pain though that preceded the fall. Patient is a poor historian states it is. He is living facility. Patient has a history of Parkinson's hypothyroidism possibly hypertension. History of prostate cancer. Per some old notes he had episode of aspiration pneumonia last fall. Patient was transferred to [facility] after discussion with Dr. Oneal for hip repair. Patient denies being sick recently. Denies any nausea vomiting chest pain shortness of breath. He does have a chronic cough. 11/22 Patient postop and still sedated from procedure. 11/23 Slept okay. Forgetful at times. More awake alert today. No overnight event or new complaints. Follow-up H&H. Monitor electrolytes. 11/24 Patient sitting up eating breakfast. No overnight event or new complaints. Patient saturation dropped to 88 while sleeping last night plan will need his nasal cannula which could probably come off as he is 97% on that 1 L. 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 Oneal Discharge diagnosis: Left hip fracture Parkinson's oropharyngeal dysphagia hypertension Secondary discharge diagnosis: Hypertension depression hypothyroidism hyponatremia anemia Time Spent with Patient Time attestation: Total time spent providing and/or coordinating discharge services: Time spent: Greater than 30 minutes EXAM Constitutional Vitals: Temp Pulse Resp BP Pulse Ox O2 Del Method O2 Flow Rate 97.7 F 68 16 107/63 92 Room Air 1 11/23/22 11:33 11/23/22 11:33 11/23/22 11:33 11/23/22 11:33 11/23/22 11:33 11/23/22 11:33 11/23/22 04:05 Discharge Data Data Completed and Pending Labs on day of discharge: Labs from last 24 hours 11/23/22 11/23/22 11/22/22 05:22 05:22 11:35 Hgb 9.3 L Hct 28.7 L Sodium 132 L 133 Potassium 4.9 5.0 Chloride 99 102 Carbon Dioxide 28 20 L Anion Gap 5.0 L 11.0 BUN 33 H 33 H Creatinine 1.1 1.0 GFR Calculation 59 66 Glucose 110 H 137 H Uric Acid 6.2 Calcium 8.9 8.9 Phosphorus 4.0 Magnesium 2.5 Total Bilirubin 0.4 Direct Bilirubin < 0.2 GGT 9 AST 16 ALT < 5 Alkaline Phosphatase 179 H Lactate Dehydrogenase 186 Total Protein 4.6 L Albumin 2.8 L Globulin 1.8 L Albumin/Globulin Ratio 1.6 Triglycerides 80 Discharge Plan Patient/Caregiver Discharge Instructions Activity: increase activity as tolerated Diet: Dysphagia Level 6 Soft & Bite-Sized Foods and Thickened Liquids Activity Restrictions/Additional Instructions: Follow-up with PCP in 3 to 7 days. Prescriptions: New hydrocodone-acetaminophen 5-325 mg Tablet 1 tab PO Q6HP PRN (Reason: Pain Level 3-6) Qty: 20 0RF Continued pramipexole 0.25 mg tablet 0.25 mg PO BID citalopram 20 mg tablet 40 mg PO DAILY carvedilol 3.125 mg tablet 3.125 mg PO HS carbidopa-levodopa 25-100 mg tablet 1 tab PO TID Rx Instructions: 2 tab before breakfast, 3 tab before lunch, 2 tab before dinner levothyroxine 75 mcg tablet 75 mcg PO DAILY potassium chloride 10 mEq Capsule, Extended Release 20 meq PO DAILY trazodone 50 mg Tablet 50 mg PO QHS ibuprofen 800 mg Tablet 800 mg PO Q6H PRN (Reason: Pain) sennosides-docusate sodium [Senna with Docusate Sodium] 8.6-50 mg Tablet 1 tab PO DAILY furosemide 20 mg Tablet 20 mg PO DAILY quetiapine [Seroquel] 50 mg Tablet 50 mg PO QHS No Action aspirin 81 mg tablet,delayed release (DR/EC) 81 mg PO DAILY Follow Up Plan Follow up with: Sal Oneal MD [Physician] - Patient Disposition: Xfer SNF Prognosis: Fair Rehab Potential: Fair I certify that the patient requires SNF services: Yes Overall status at discharge: patient is progressing back to baseline QUALITY VTE Deep Vein Thrombosis/Pulmonary Embolism Present on Admission: Yes
[2022-11-23] MEDS: traZODone HCL 50 MG TABLET PO SCH (20:55)
[2022-11-23] MEDS: QUEtiapine 25 MG TABLET PO SCH (20:55)
[2022-11-24] MEDS: 0.9 % SODIUM CHLORIDE 10 ML SYRINGE IV SCH ×3 (06:13→21:00)
--- NOTE | 2022-11-24 07:55 | Internal Med Progress Note ---
SUBJECTIVE Subjective Patient information: Note initiated : 11/24/22 at 7:55 am Service Date, if different from initiated Date: [] Patient: Len Polo a 87 y/o M admitted on 11/21/22 for Left Hip Fracture. Chief Complaint: [] Principal diagnosis: L hip IT fx Interval history: History of present illness: Mr. Polo is a 87 year old M Presents to the outside facility for fall and left hip pain. Patient was getting out of his wheelchair when he fell onto his left side and immediately had increased pain. Patient said He did have pain though that preceded the fall. Patient is a poor historian states it is. He is living facility. Patient has a history of Parkinson's hypothyroidism possibly hypertension. History of prostate cancer. Per some old notes he had episode of aspiration pneumonia last fall. [facility] after discussion with Dr. Oneal for hip repair. Patient denies being sick recently. Denies any nausea vomiting chest pain shortness of breath. He does have a chronic cough. 11/22 Patient postop and still sedated from procedure. 11/23 Slept okay. Forgetful at times. More awake alert today. No overnight event or new complaints. Follow-up H&H. Monitor electrolytes. 11/24 Patient sitting up eating breakfast. No overnight event or new complaints. Patient saturation dropped to 88 while sleeping last night plan will need his nasal cannula which could probably come off as he is 97% on that 1 L. Review of Systems: denies headache/fever/chills/nausea/vomiting/chest or abdominal pain/cough/dyspnea/diarrhea. Otherwise see above. Constitutional Vitals: Vital Signs Temp Pulse Resp BP Pulse Ox O2 Del Method O2 Flow Rate 97.8 F 70 16 131/59 97 Nasal Cannula 1 11/24/22 07:37 11/24/22 07:42 11/24/22 07:42 11/24/22 07:37 11/24/22 07:42 11/24/22 07:42 11/24/22 07:42 Period Temp Pulse Resp BP Sys/Douglass Pulse Ox O2 Del Method O2 Flow Rate Last 24 Hr 97.1 F-98.8 F 62-80 14-20 107-136/55-63 88-99 Nasal Cannula- Room Air 1-1 Intake and Output 11/23/22 11/24/22 11/24/22 19:59 03:59 11:59 Intake Total 480 350 Output Total 450 950 Balance 30 -600 Weight 74.888 kg Intake & Output: Intake & Output 11/23/22 11/24/22 11/24/22 19:59 03:59 11:59 Intake Total 480 350 Output Total 450 950 Balance 30 -600 Weight 74.888 kg Intake: Oral 480 350 Output: Urine Catheter Amount 450 950 Other: Meal Dinner Percent of Meal Consumed 50% Feeding Ability Assist with Tray Set Up Urine Appearance Clear Clear Clear Urine Color Yellow Dark Yellow Dark Yellow Urine Odor Strong Exam: General: Awake, No acute Distress Eyes/N/T: EOMI, Head/Neck: neck supple, CV: RRR, No murmurs, Pulm: Clear b/l, no wheezing/rhonchi/rales Abd: soft, nontender, +BS x4 Ext: no clubbing/cyanosis, mild b/l LE edema Neuro: Alert, hearing impairment no focal deficits, moves all extremities spontaneously Skin: warm/dry OBJ DATA Labs 11/23/22 05:22 11/23/22 05:22 Labs: Abnormal Lab Results 11/23/22 11/23/22 11/22/22 05:22 05:22 11:35 RBC Hgb 9.3 L Hct 28.7 L Plt Count Immature Gran % (Auto) Neut % (Auto) Lymph % (Auto) Lymph # (Auto) Immature Gran # Sodium 132 L Chloride Carbon Dioxide 20 L Anion Gap 5.0 L BUN 33 H 33 H Glucose 110 H 137 H Alkaline Phosphatase 179 H Lactate Dehydrogenase Total Protein 4.6 L Albumin 2.8 L Globulin 1.8 L Urine Occult Blood Ur Leukocyte Esterase Urine RBC Urine WBC Urine Mucus 11/22/22 11/21/22 11/21/22 02:01 20:16 20:16 RBC 4.01 L Hgb 12.4 L Hct 37.5 L Plt Count 138 L Immature Gran % (Auto) 1.1 H Neut % (Auto) 86.0 H Lymph % (Auto) 5.7 L Lymph # (Auto) 0.43 L Immature Gran # 0.08 H Sodium 130 L Chloride 95 L Carbon Dioxide Anion Gap 7.0 L BUN 33 H Glucose Alkaline Phosphatase 265 H Lactate Dehydrogenase 585 H Total Protein 5.5 L Albumin Globulin 1.8 L Urine Occult Blood Small A Ur Leukocyte Esterase Trace A Urine RBC 10 H Urine WBC 7 H Urine Mucus Few A Meds: Medications Acetaminophen (Acetaminophen 325 Mg Tablet) 650 mg PO Q6HP PRN PRN Reason: PAIN/FEVER > 101 Hydrocodone Bitart/Acetaminophen (Hydrocodone/Apap 5/325mg Tablet) 1 tab PO Q4HP PRN PRN Reason: PAIN LEVEL 3-6 Last Admin: 11/23/22 20:56 Dose: 1 tab Albuterol/Ipratropium (Ipratropium/Albuterol 3 Ml Ampul.Neb) 3 ml NEB Q4HP PRN PRN Reason: Shortness Of Breath Carbidopa/Levodopa (Carbidopa/Levodopa 25/100 Tablet) 1 tab PO TID [facility] Last Admin: 11/23/22 20:55 Dose: 1 tab Citalopram Hydrobromide (Citalopram 20 Mg Tablet) 40 mg PO DAILY [facility] Last Admin: 11/23/22 08:04 Dose: 40 mg Docusate Sodium (Docusate Sodium 100 Mg Capsule) 100 mg PO BID [facility] Last Admin: 11/23/22 20:55 Dose: 100 mg Enoxaparin Sodium (Enoxaparin 40 Mg/0.4 Ml Syringe) 40 mg SQ DAILY [facility] Last Admin: 11/23/22 08:04 Dose: 40 mg Magnesium Sulfate (Magnesium Sulfate) 2 gm in 50 mls @ 50 mls/hr IV UD PRN PRN Reason: Magnesium </= 1.6 Potassium Chloride 40 meq/ (Dextrose) 520 mls @ 130 mls/hr IV UD PRN PRN Reason: Potassium < 3 Labetalol HCl (Labetalol 5 Mg/Ml Ml) 0 mg IV Q2HP PRN PRN Reason: Hypertension Levothyroxine Sodium (Levothyroxine 75 Mcg Tablet) 75 mcg PO QAMAC [facility] Last Admin: 11/23/22 08:04 Dose: 75 mcg Morphine Sulfate (Morphine 4 Mg/Ml Vial) 0 mg IV Q3HP PRN PRN Reason: Pain Last Admin: 11/23/22 08:16 Dose: 2 mg Olanzapine (Olanzapine 5 Mg Tablet) 5 mg PO Q6HP PRN PRN Reason: Agitation Ondansetron HCl (Ondansetron 4 Mg/2 Ml Vial) 4 mg IV Q4HP PRN PRN Reason: Nausea And Vomiting Polyethylene Glycol (Polyethylene Glycol 3350 17 Gm Packet) 17 gm PO DAILYP PRN PRN Reason: Constipation Potassium Chloride (Potassium Chloride 20 Meq Tablet) 40 meq PO UD PRN PRN Reason: Potassium < 3 Potassium Chloride (Potassium Chloride 20 Meq Tablet) 40 meq PO UD PRN PRN Reason: Potssium is 3-3.5 Pramipexole Dihydrochloride (Pramipexole 0.25 Mg Tablet) 0.25 mg PO BID [facility] Last Admin: 11/23/22 20:55 Dose: 0.25 mg Quetiapine Fumarate (Quetiapine 25 Mg Tablet) 50 mg PO QHS [facility] Last Admin: 11/23/22 20:55 Dose: 50 mg Senna (Sennosides 1 Tablet) 2 tab PO DAILYP PRN PRN Reason: Constipation Sodium Biphosphate/Sodium Phosphate (Fleets Adult Enema) 1 dose VT Q3-4DAYS PRN PRN Reason: Constipation Sodium Chloride (0.9 % Sodium Chloride 10 Ml Syringe) 10 ml IV Q8 [facility] Last Admin: 11/24/22 06:13 Dose: 10 ml Trazodone HCl (Trazodone Hcl 50 Mg Tablet) 50 mg PO QHS [facility] Last Admin: 11/23/22 20:55 Dose: 50 mg A/P Narrative A/P Narrative: A: *Left hip fracture: s/p ORIF (11/22) *Parkinson's: *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 Oneal for orthopedic surgery -IVF, monitor follow-up electrolytes and sodium volume status -f/u H&H -monitor volume status -hold home lasix for now -PT/OT -dysphagia diet -CM for placement -ppx: postop per Ortho lovenox Time Spent With Patient Time: Total time spent is greater than 50% in coordination of care (as documented) at patient's floor/unit and/or counseling patient: QUALITY VTE Deep Vein Thrombosis/Pulmonary Embolism Present on Admission: Yes
--- NOTE | 2022-11-24 08:00 | EKG ---
[facility] Test Date: 2022-11-21 Pat Name: Len Polo Department: [facility] Room: 127 Gender: Male Field Aide: : 1935 Requested By: Jin Bender Order Number: [id number] Reading MD: Reuben Anglin Measurements Intervals [place] Rate: 83 P: 0 CA: 220 QRS: 54 QRSD: 136 T: 70 QT: 441 QTc: 518 Interpretive Statements Sinus rhythm Ventricular premature complex Prolonged CA interval Probable LVH with secondary repol abnrm Electronically Signed On 11-24-2022 7:45:43 PST by Reuben Anglin /store/M0/[id number]
[2022-11-24] MEDS: ENOXAPARIN 40 MG/0.4 ML SYRINGE SQ SCH (08:47)
[2022-11-24] MEDS: CITALOPRAM 20 MG TABLET PO SCH (08:47)
[2022-11-24] MEDS: LEVOTHYROXINE 75 MCG TABLET PO SCH (08:47)
[2022-11-24] MEDS: CARBIDOPA/LEVODOPA 25/100 TABLET PO SCH ×3 (08:47→20:58)
[2022-11-24] MEDS: DOCUSATE SODIUM 100 MG CAPSULE PO SCH ×2 (08:47→20:58)
[2022-11-24] MEDS: PRAMIPEXOLE 0.25 MG TABLET PO SCH ×2 (08:47→20:58)
[2022-11-24] MEDS: HYDROcodone/APAP 5/325MG TABLET PO PRN (09:26)
[2022-11-24] MEDS: QUEtiapine 25 MG TABLET PO SCH (20:58)
[2022-11-24] MEDS: traZODone HCL 50 MG TABLET PO SCH (20:58)
[2022-11-25] MEDS: HYDROcodone/APAP 5/325MG TABLET PO PRN ×2 (01:05→10:55)
[2022-11-25] MEDS: 0.9 % SODIUM CHLORIDE 10 ML SYRINGE IV SCH (05:54)
--- NOTE | 2022-11-25 08:12 | Operative Note ---
DATE OF OPERATION: 11/22/2022 DATE OF PROCEDURE: 11/22/2022 PREOPERATIVE DIAGNOSIS: Left intertrochanteric hip fracture. POSTOPERATIVE DIAGNOSIS: Left probable old reverse obliquity subtrochanteric femur fracture with acute femoral neck fracture. PROCEDURE PERFORMED: Open treatment of the left subtrochanteric femur and femoral neck fractures using long intramedullary fixation of a [place] gamma nail, 400 mm in length x 13 mm diameter with a 125-degree neck angle and a 105 mm lag screw. SURGEON: Sal Oneal MD EMERGENCY SERVICES DIRECTOR: Cristopher Kimbrough PA-C. The expertise and technical skill of this provider were required throughout the case. The PA assisted with preoperative coordination, intraoperative retraction, wound closure, and dressing and splint application, as well as postoperative documentation and care coordination. ANESTHESIA: General. DRAINS: None. SPECIMENS: None. COMPLICATIONS: None. ESTIMATED BLOOD LOSS: 100 mL INDICATIONS FOR SURGERY: This is an 87-year-old male with some dementia who sounds like he was likely wheelchair bound, who had a fall and increased pain in his left hip. He was seen at his local Emergency Department in [place] and x-rays showed what appeared to be an intertrochanteric hip fracture. FINDINGS AT SURGERY: An essentially irreducible subtrochanteric hip fracture with an acute reducible femoral base of neck fracture. Post-fixation showed satisfactory position of the lag screw within the femoral head and reduction of the femoral neck fracture with incomplete reduction of the reverse obliquity subtrochanteric fracture due to the chronicity of the fracture. PROCEDURE IN DETAIL: The patient had been seen preoperatively. Consent had been signed and he was taken to the operating room. General anesthesia induced. He was carefully positioned on the fracture table. The left hip and lower extremity were carefully prepped and draped in normal sterile fashion. A timeout was performed verifying patient name, operative site, and plan. [place] shower curtain drape was placed. We then brought in fluoroscopy and the fracture of the subtrochanteric was poorly aligned with traction. It was more obvious that this was a reverse obliquity subtrochanteric fracture that had significant medial displacement of the femoral shaft compared to the proximal fragment. Also, at this time, we noted there was cortical disruption along the superior femoral neck at the base. At this point, I tried with more traction to reduce the fracture. I also tried pulling on the distal femoral shaft lateral to try and reduce the fracture and it would not distract with traction and would not reduce with me pulling laterally on the distal fragment. At this point, it appeared to me that this was a chronic fracture, which is certainly not unusual in elderly demented patients in care facilities, especially since he has been nonambulatory. I did not feel, given his advanced age and the difficulty of trying to open and reduce, that the benefit of trying to do that would outweigh the risks. I proceeded with just rodding in basically its in situ position. I made the standard proximal incision in line with the femur. A scalpel was used through skin and subcutaneous tissue. Hemostasis was obtained with Bovie cautery. I then split through the IT band with the Bovie and then palpated the tip of the trochanter. A guide pin was placed in the tip of the trochanter and then I started passing it down. I had to redirect to make sure I got into the shaft distally. We then used the opening reamer with a tissue protector through the reverse obliquity nature of the fracture. I did elect to go with a long nail, so a long ball-tip guidewire was passed through the entry hole and into the distal shaft and taken down to almost the patella. The ruler was then used and then measured to about 400 mm. I then started sequentially reaming. He had very poor bone quality with a very capacious canal, so I easily reamed through and I did not get cortical chatter until about a 14 mm ream. I did ream up to a 14.5. I then opened a 400 x 13 mm long gamma nail, 125-degree neck angle. This was passed over the ball-tipped guidewire and taken down until the lag screw would be centered in the head. Due to the fibrous malunion, there was a more varus angle, so I had to impact the nail so the lag screw was going just along the inferior femoral neck to get knee in the best position of the femoral head. Guide pin was taken up to just short of the articular surface. I used the jig to find my location for my stab incision and the sleeve was taken down to bone. We drilled the near cortex and then a guide pin was passed under fluoroscopic guidance up into the femoral head. Once we liked our guide pin position, I then used the step reamer after measuring length of 105 mm. This was reamed for the lag screw and a 105 lag screw was opened and advanced up the femoral head until I was less than 1 cm from the articular surface on both AP and lateral views. Once we liked our position, a locking screw was placed in the proximal end of the nail and advanced until it was locked. Due to the reverse obliquity nature, I did not allow sliding compression, but kept it locked. We then removed traction and went distally using fluoroscopy. I got perfect circles and made a stab incision over the static hole, spread down to bone with a clamp and then using a freehand technique, drilled through the nail and then depth gauge and then the appropriate length distal interlocking screw was placed. Fluoroscopy was used to verify placement through the fabrizio. I then took final AP and lateral images, proximal and distal, and saved these. We irrigated with IrriSept. After a minute, we irrigated with saline, and then #1 Vicryl was used to close the IT band proximally, 2-0 Monocryl was used for all the subcutaneous skin closure and melita for skin. Xeroform and a sterile dressing were applied. The patient was then awakened, extubated, and transferred to recovery in fair condition. BJB:shara Job ID: [id number] Doc ID: [id number] Sal Oneal MD
[2022-11-25] MEDS: PRAMIPEXOLE 0.25 MG TABLET PO SCH (08:24)
[2022-11-25] MEDS: CITALOPRAM 20 MG TABLET PO SCH (08:24)
[2022-11-25] MEDS: DOCUSATE SODIUM 100 MG CAPSULE PO SCH (08:24)
[2022-11-25] MEDS: CARBIDOPA/LEVODOPA 25/100 TABLET PO SCH (08:24)
[2022-11-25] MEDS: LEVOTHYROXINE 75 MCG TABLET PO SCH (08:24)
[2022-11-25] MEDS: ENOXAPARIN 40 MG/0.4 ML SYRINGE SQ SCH (08:24)
--- NOTE | 2022-11-25 09:00 | Discharge Summary ---
Discharge Provider Provider IMPORTANT FOLLOW-UP INFORMATION FOR PCP: 1. F/u with Ortho Patient information: Note initiated : 11/25/22 at 8:57 am Service Date, if different from initiated Date: [] Patient: Len Polo 87 y/o M admitted on 11/21/22 for Left Hip Fracture. 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 Oneal for orthopedic surgery -IVF, monitor follow-up electrolytes and sodium volume status -f/u H&H -monitor volume status -hold home lasix for now -PT/OT -dysphagia diet -CM for placement -ppx: postop per Ortho lovenox Discharge diagnosis: Left hip fracture, FTT Time Spent with Patient Time attestation: Total time spent providing and/or coordinating discharge services: Time spent: Greater than 30 minutes EXAM Constitutional Vitals: Temp Pulse Resp BP Pulse Ox O2 Del Method O2 Flow Rate 97.8 F 64 20 130/70 95 Room Air 1 11/25/22 07:17 11/25/22 07:17 11/25/22 07:17 11/25/22 07:17 11/25/22 07:17 11/25/22 07:17 11/24/22 07:42 General appearance: average body habitus Head Head exam: Present atraumatic, normal inspection and normocephalic Eye Eye exam: Present EOMI, normal appearance and PERRL; Absent conjunctival injection ENT ENT exam: Present normal exam; Absent mucous membranes dry Neck Neck exam: Present full ROM; Absent lymphadenopathy Respiratory Respiratory exam: Present decreased breath sounds and rhonchi; Absent respiratory distress or wheezes Cardiovascular Cardiovascular exam: Present normal rate and rhythm and RRR; Absent JVD GI/Abdominal GI/Abdominal exam: Present normal bowel sounds and soft; Absent diminished bowel sounds, distended, guarding, mass, rebound or tenderness Neurological Exam Neurological exam: Present alert; Absent altered or motor sensory deficit Psychiatric Psychiatric exam: Present normal affect and normal mood Skin Skin exam: Present intact and warm; Absent erythema, pallor, petechiae or rash Discharge Data Data Completed and Pending Labs on day of discharge: Labs from last 24 hours 11/25/22 08:20 WBC Pending RBC Pending Hgb Pending Hct Pending MCV Pending MCH Pending MCHC Pending RDW Pending Plt Count Pending MPV Pending Immature Gran % (Auto) Pending Neut % (Auto) Pending Immature Gran # Pending Discharge Plan Patient/Caregiver Discharge Instructions Activity: increase activity as tolerated Diet: Dysphagia Level 6 Soft & Bite-Sized Foods and Thickened Liquids Activity Restrictions/Additional Instructions: Follow-up with PCP in 3 to 7 days. Prescriptions: New hydrocodone-acetaminophen 5-325 mg Tablet 1 tab PO Q6HP PRN (Reason: Pain Level 3-6) Qty: 20 0RF Continued pramipexole 0.25 mg tablet 0.25 mg PO BID citalopram 20 mg tablet 40 mg PO DAILY carvedilol 3.125 mg tablet 3.125 mg PO HS carbidopa-levodopa 25-100 mg tablet 1 tab PO TID Rx Instructions: 2 tab before breakfast, 3 tab before lunch, 2 tab before dinner levothyroxine 75 mcg tablet 75 mcg PO DAILY potassium chloride 10 mEq Capsule, Extended Release 20 meq PO DAILY trazodone 50 mg Tablet 50 mg PO QHS ibuprofen 800 mg Tablet 800 mg PO Q6H PRN (Reason: Pain) sennosides-docusate sodium [Senna with Docusate Sodium] 8.6-50 mg Tablet 1 tab PO DAILY furosemide 20 mg Tablet 20 mg PO DAILY quetiapine [Seroquel] 50 mg Tablet 50 mg PO QHS No Action aspirin 81 mg tablet,delayed release (DR/EC) 81 mg PO DAILY Follow Up Plan Follow up with: Sal Oneal MD [Physician] - Patient Disposition: Xfer SNF Prognosis: Fair Rehab Potential: Fair I certify that the patient requires SNF services: Yes Overall status at discharge: patient is progressing back to baseline Discharge Orders: Discharge Order (Routine); Ordered 11/25/22 Ordered By: Francis LEBRON VTE Deep Vein Thrombosis/Pulmonary Embolism Present on Admission: Yes
[2022-11-25 09:08] LABS: Basophils # (Auto) 0.01 K/mcL (0.00-0.30); Basophils % (Auto) 0.2 % (0.0-2.0); Eosinophils % (Auto) 2.4 % (0.0-7.0); Hematocrit 29.1 % (40.1-51.0); Hemoglobin 9.3 g/dL (13.7-17.5); Lymphocytes # (Auto) 0.53 K/mcL (1.50-4.80); Mean Cell Volume 97.3 fL (80.0-100.0); Mean Platelet Volume 10.8 fL (8.8-12.5); Monocytes # (Auto) 0.47 K/mcL (0.10-0.90); Monocytes % (Auto) 11.5 % (1.0-12.0); Neutrophils % (Auto) 71.4 % (38.0-78.0); Platelet Count 135 K/mcL (140-440); RBC 2.99 M/mcL (4.63-6.08); Red Cell Distribution Width 14.6 % (11.5-14.5); WBC 4.1 K/mcL (4.5-11.0)
--- NOTE | 2022-11-25 17:53 | XRay Report ---
CLINICAL INFORMATION: Aspiration TECHNIQUE: Thin, nectar and honey quality barium was administered with speech pathology well deglutition was observed fluoroscopically. Total fluoroscopy time: One minute and 10 seconds FINDINGS: Tongue elevation and palate depression are normal resulting in propulsion of the barium bolus into the pharynx. The nasopharyngeus closes normally. Pharyngeal stripping, cricopharyngeal opening and initiation of primary peristaltic were normal. The epiglottis and vocal cords close incompletely for the thin quality barium allowing penetration into the vestibule and the the vocal cords into the trachea. This did elicit a cough reflex. The nectar and honey quality barium was tolerated however.. The esophagus is normal in contour and caliber without evidence of esophagitis or focal lesion. No hiatal hernia or reflux could be induced. IMPRESSION: Descending aspiration due incomplete epiglottis and vocal cord on thin viscosity barium administration. [place] and honey quality barium tolerated however-no aspiration Interpreted and Authenticated by: Rufino Wilkins 11/25/22
== END 2022-11-25 10:59 | DRG 481 ==
LOC: MEDSUR 19:17
PROVIDERS: ADMIT Internal Medicine; ATTEND Internal Medicine